=== PATIENT | female | born 1950 | race Caucasian/White ===

== ENCOUNTER 2022-11-24 09:03 | Outpatient (RCR) | payer MEDICARE, SELFPAY ==
--- NOTE | 2022-11-25 10:29 | MHC.SP.ADU ---
Referring provider: Sharon Arias Reason for Referral: Anoxic brain injury Type of Treatment: 77008 Clinical Swallowing Evaluation Date of Plan of Treatment: 11/24/22 Onset of Symptoms/Illness: 11/24/22 Date Treatment Started: 11/24/22 Medical Diagnosis: Speech changes Primary Speech Language Diagnosis: R41.841 Cognitive communication disorder Secondary Speech Language Diagnosis: History Mrs. Baker is a 72 year-old woman with concerns over her speech and cognition following complications from carotid bypass surgery in September of 2022. Past medical history includes; Abdominal bloating, Hypertension, Breast CA s/p lumpectomy (2005), Vision changes, Hyperlipedemia, CAD, DM2, Headache, Kidney stones, Sleep apnea, Afib, PCOS, Psoriasis, Sciatica. She reports slurred speech and cognitive changes following recent carotid surgery during which she reports she, three times . She notes that her Daughter reports transient right side facial droop as well as pressure to bite her lip. Social history is significant for multiple stressors at work from which she would like to retire from. Family history is significant for additional stressors which she reports are persistent, but resolving. 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 Assistive Devices in use: Comment: N/a Past Speech Language Therapy: None. Other Therapies Seen in Current Calendar Year: None Other: Swallowing History: Dysphagia Specific: Within Functional Limits Comments: Pre-eval Risk for Aspiration: Pre-evaluation Dietary Consistencies: Pre-eval Liquid Intake: Pre-eval Medication Intake: Reported Speech, Language, Cognition difficulties: Attention Memory Cognition Speaking Quality of Life: Patient Stated Goal of Speech-Language Therapy: I want to be smarter than my Grand Daughters Assessment Speech Production: Aphasic: Fluent Articulate Within Functional Limits Clinical Impression: Intact Informal Voice Assessment: Voice Loudness: Normal Voice Nasal Resonance: Normal Voice Oral Resonance: Normal Voice Phonatory-based Quality: Normal Voice Pitch: Normal Voice Other Observations: Reverse Phonation Clinical Impression: Intact Tests of Speech & Lang Adults: Clinical Impression: Did Not Test Observations: Testing not indicated. Tests of Cognition: RBANS Clinical Impression: Impaired Observations: Mrs. Baker participated in the RBANS - Update. She was engaged and motivated to complete all tasks. At times, she presented as anxious towards the task at hand which may have negatively impacted her performance. R-BANS Update I.) Immediate Memory Index: 76 Ia.) List Learning: -- Scaled Score: 5 Ib.) Story Memory: -- Scaled Score: 6 II.) Visuospatial/Constructional Index: 126 IIa.) Figure/Copy: -- Scaled Score: 14 IIb.) Line Orientation: -- Percentile Group: >75 III.) Language Index: 92 IIIa.) Picture Naming: -- Percentile Group: 26-50 IIIb.) Semantic Fluency: -- Scaled Score: 7 IV.) Attention Index: 112 Renae.) Digit Span: -- Scaled Score: 12 IVb.) Coding: -- Scaled Score: 12 V.) Delayed Memory Index: 81 Va.) List Recall: -- Percentile Group: 3-9 Vb.) List Recognition: -- Percentile Group: 17-25 Vc.) Story Recall: -- Scaled Score: 9 Vd.) Figure Recall: -- Scaled Score: 12 Total Scale Score: 95 (%ile: 37) Impressions and Recommendations Summary: Mrs. Baker reports recent history of surgical complications suggestive of diffuse anoxic brain injury. Her reported symptoms of difficulty sleeping, behavioral changes, and an overall feeling of brain fog are consistent with this etiology. She also reports a multitude of work and family related stressors that she is addressing with a psychological counselor. Standardized testing showed primary impairment in Immediate Memory (SS=76) and Delayed Memory (SS=81). These results may have been impacted by her testing anxiety, observable through secondary behaviors and her reported concern that she would be diagnosed with major neurocognitive disorder. Despite these relative areas of deficits, her overall Total Scale score (SS=95) is within functional limits as compared to her age-matched peers. These scores should be interpreted with caution however as her baseline is one of a high-achieving and high-performing individual. In lieu of previous testing records, it is possible that her reported symptoms are consistent with today's performance and that she is not performing at her previously expected level. Mrs. Baker was presented with these scores on the day of testing and agrees to trial a short course of cognitive-linguistic therapy at this clinic. Therapy will provided activities and education in cognitive stimulation techniques that she can practice at home and in the community. Prognosis for Improvement: Comment: Good Recommendation for Speech Therapy: Outpatient Speech Therapy Frequency/Duration: Date Range for Service Requested: Time to Reassess: PRN Custodial Goals: Pt will demonstrate back compensatory strategies to help them achieve success in novel, cognitively stimulating tasks. Short Term Goals: Goal # : STG1: Pt will verbalize back the 5 attention types and provide functional examples of each with >80% accuracy with fading cues. Goal Status: New Goal Goal# : STG2: Pt will complete logical deduction puzzles using trained compensatory strategies with >80% accuracy with fading cues. Goal Status: New Goal Goal # : STG3: Pt will complete weekly HEP to facilitate carryover at home and in the community with >80% accuracy independently. Goal Status: Recommended Referrals to be Discussed with Primary Care Provider: Neurology Neuropsychological Eval Pt does not endorse that she has a Neurologist on-board. Her tic-like lip biting behaviors may be an indicator of underlying hyperkinetic disorder. Full Neuropsychological Evaluation may be beneficial given concern over mild cognitive impairment. Patient Education: Completed: No Patient/Caregiver Education: Patient expressed understanding of evaluation Patient agrees with goals and treatment plan Patient requires further education on strategies Comments/Barriers to Learning: Doughnut Icer Machine Clinican/Clinical Fellow: No Supervisory Statement: N/A Speech Language Pathologist: Herminio Guillory M.A., CCC-CREDIT AND LOAN COLLECTIONS SUPERVISOR
== END 2023-11-22 13:04 | disposition home or self-care (01) ==
LOC: HO.SH 09:03
PROVIDERS: Visit Provider Internal Medicine
DX: R41.841 Cognitive communication deficit (principal)

== ENCOUNTER 2025-01-10 10:54 | Outpatient (AMB) | payer MEDICARE, SELFPAY ==
--- OUTSIDE RECORDS SUMMARY | 2025-01-06 23:59 | XMS_ITS | Continuity of Care Document ---
Author Organization [facility] Address [address] [place] [address]- Care Team Providers Care Tourist Information Assistant Name Role Phone Erich VILLAR, [facility] Primary [facility] Physician [place] [facility] [place]): [place] - 01/06/25 [facility] [address] [place], [place] [id number] Encounter Type: Triage Allergies, Adverse Reactions, Alerts Substance Criticality Severity Reaction Reaction Severity Status NIFEdipine bloating, weight gain Active gabapentin hallucination Activ e Tape surgical, paper , adhesive - severe burning of skin Active Immunizations Given and Recorded Vaccine Date Status Refusal Reason pneumococcal 20-valent conjugate vaccine 1 12/31/21 Given influenza virus vaccine, inactivated 11/28/19 Roberto rded influenza virus vaccine, inactivated 2 12/15/17 Gi norman influenza virus vaccine, inactivated 3 01/22/16 Gi norman influenza virus vaccine, inactivated 4 10/21/14 Re corded Influenza Virus Vaccine (oldterm) 01/04/19 Recorde d pneumococcal 13-valent vaccine 5 01/25/18 Given 1Result Comment: [facility] [id number] 2Result Comment: [12/15/2017] [facility]# [id number] pt. tolerated inj. without complications...[place] 3Result Comment: [01/22/2016] pt. tolerated inj. without complications...CO [facility] Comment: [01/25/2018] [facility]# [id number] pt. tolerated inj. without complications....CO Medications atorvastatin 10 mg oral tablet 1 tablet = 10 mg, By Mouth, Daily, # 30 tablet, 0 Refills, Maintenance, 12/24/24 10:58:00 AM EDT, [id number], Partial fill upon patient request if the prescription is for a schedule II opioiddrug., 155, cm, 12/24/24 10:15:00 EDT, Height, 85.5, kg, 12/05/24 14:37:00 EDT, Dry Weight Start Date: 12/24/24 Status: Ordered Medication Dispense Status: Completed Quantity: 30.0 Unit: tablet Total Allowed Fills: 1 Fills Dispensed: 0 AutoBIPAP EPAPmin 9 IPAPmax 17 PS 4 AutoBIPAP EPAPmin 9 IPAPmax 17 PS 4, See Instructions, # 1 each, Refills 0, Tot. Refills 0, Maintenance, use overnight and naps from [facility], 04/25/23 4:23:00 PM EST, Compound Start Date: 04/25/23 Status: Ordered Medication Dispense Status: Completed Quantity: 1.0 Unit: each Total Allowed Fills: 1 Fills Dispensed: 0 ciclopirox 0.77% topical cream 1 application, Topically, 2 times a day, # 90 Gm, 2 Refills, Maintenance, 12/05/24 2:54:00 PM EDT, Cream, [id number], 1 application Topically 2 times a day, 155, cm, 12/05/24 14:37:00 EDT, Height, 85.5, kg, 12/05/24 14:37:00 EDT, Dry Weight Start Date: 12/05/24 Status: Ordered Medication Dispense Status: Completed Quantity: 90.0 Unit: g Total Allowed Fills: 3 Fills Dispensed: 0 fluocinolone 0.01% topical oil 1 application, Topically, Daily, Apply a thin film onto scalp and massage thoroughly into wet or dampened hair/scalp; cover with shower cap. Leave on overnight (or for at least 4 hours)., # 118.28 mL, 5 Refills, Maintenance, 05/22/24 1:09:00 PM EDT, Oil, [id number], Partial fill upon patient request if the prescription is for a schedule II opioid drug., 1 application Topically Daily,Instr:Apply a thin film onto scalp and massage thoroughly into wet or dampened hair/scalp; cover with shower cap. Leave on overnight (or for at least 4 hours)., 155, cm, 05/22/24 12:40:00 EDT, Height, 88, kg, 05/22/24 12:32:00 EDT, Dry Weight Start Date: 05/22/24 Status: Ordered Medication Dispense Status: Completed Quantity: 118.28 Unit: mL Total Allowed Fills: 6 Fills Dispensed: 0 furosemide 20 mg oral tablet 1, tablet, By Mouth, Daily, # 90 tablet, Refills 1, Tot. Refills 1, Maintenance, 12/17/24 9:25:00 PMEDT, Route to Pharmacy Electronically, [id number], 155, cm, 12/05/24 14:37:00 EDT, Height, 85.5, kg, 12/05/24 14:37:00 EDT, Dry Weight Start Date: 12/17/24 Stop Date: 12/23/24 Status: Ordered Medication Dispense Status: Completed Quantity: 90.0 Unit: tablet Total Allowed Fills: 2 Fills Dispensed: 0 Gas-X Extra Strength 125 mg oral tablet, chewable 1 tablet = 125 mg, Chew, 4 times a day, PRN Gas, # 48 tablet, 0 Refills, Acute 08/15/26 8:56:00 AM EDT, 08/01/24 8:55:00 AM EDT, Chew Tablet, [facility]/pharmacy #[id number], Partial fill upon patient request if theprescription is for a schedule II opioid drug., 155, cm, 08/01/24 8:20:00 EDT, Height, 87, kg, 07/08/24 11:37:00 EDT, Dry Weight Start Date: 08/01/24 Stop Date: 08/15/26 Status: Ordered Medication Dispense Status: Completed Quantity: 48.0 Unit: tablet Total Allowed Fills: 1 Fills Dispensed: 0 Humalog Kwik Pen 100 units/mL subcutaneous injection See Instructions, up to max 20 units tid units Subcutaneous Injection 3 times a day before meals based on sliding scale 100-149: 4 units 150-199: 8 units 200- 249: 12 units 250-299: 16 units 300-349: 20 units Call if glucose greater than 350 rotate injection sites 15 minutes before or immediately after a meal, # 30 mL, 2 Refills, Maintenance, 12/05/24 2:54:00 PM EDT, Solution, [id number], Partial fill upon patient request if the prescription is for a schedule II opioid drug., 155, cm, 12/05/24 14:37:00 EDT, Height, 85.5, kg, 12/05/24 14:37:00 EDT, Dry Weight Start Date: 12/05/24 Status: Ordered Medication Dispense Status: Completed Quantity: 30.0 Unit: mL Total Allowed Fills: 3 Fills Dispensed: 0 hydrOXYzine hydrochloride 10 mg oral tablet See Instructions, PRN for anxiety, TAKE 1-2 TABLETS BY MOUTH IN THE EVENING WITH DINNER, # 90 tablet, 2 Refills, Maintenance, 01/29/24 11:37:00 AM EST, Tablet, [id number], Partial fill upon patient request if the prescription is for a schedule II opioid drug., 151.5, cm, 12/29/23 10:34:00 EDT, Height, 88, kg, 12/29/23 10:15:00 EDT, Dry Weight Start Date: 01/29/24 Status: Ordered Medication Dispense Status: Completed Quantity: 90.0 Unit: tablet Total Allowed Fills: 3 Fills Dispensed: 0 Lantus Solostar Pen 100 units/mL subcutaneous solution See Instructions, 70 units Subcutaneous Injection Daily with breakfast, # 60 mL, 2 Refills, Maintenance, 12/05/24 2:54:00 PM EDT, Solution, [id number], dose change, 155, cm, 12/05/24 14:37:00 EDT, Height, 85.5, kg, 12/05/24 14:37:00 EDT, Dry Weight Start Date: 12/05/24 Status: Ordered Medication Dispense Status: Completed Quantity: 60.0 Unit: mL Total Allowed Fills: 3 Fills Dispensed: 0 Metamucil Powder By Mouth, 0 Refills, Maintenance, 10/24/22 10:18:00 AM EDT, Partial fill upon patient request if theprescription is for a schedule II opioid drug. Start Date: 10/24/22 Status: Ordered Medication Dispense Status: Completed Total Allowed Fills: 1 Fills Dispensed: 0 nystatin topical [id number] u/gm powder 1 application, Topically, 2 times a day, clean and dry area, # 56.7 Gm, 0 Refills, Maintenance, 04/07/20 2:08:00 PM EST, Powder, [facility]/pharmacy #[id number], Partial fill upon patient request if the prescription is for a schedule II opioid drug., 1 application Topically 2 times a day,Instr:clean and dry area, 154.02, cm, 03/17/20 13:45:00 EST, Height Start Date: 04/07/20 Status: Ordered Medication Dispense Status: Completed Quantity: 56.7 Unit: g Total Allowed Fills: 1 Fills Dispensed: 0 ONE TOUCH ULTRA test strips ONE TOUCH ULTRA test strips, See Instructions, Refills 3, Tot. Refills 3, Maintenance, use as directed tid and prn, 09/24/09 11:16:04 AM EDT, 90 days Start Date: 09/24/09 Status: Ordered Medication Dispense Status: Completed Total Allowed Fills: 4 Fills Dispensed: 0 Pen Iola, 31 G x 8 mm BD Ultra Fine III See Instructions, # 100 each, Refills 5, Tot. Refills 5, Maintenance, dx; e11.9 use four to 5 timesper day, 02/14/24 5:02:00 PM EST, Supply, 151.5, cm, 12/29/23 11:21:00 EDT, Height, 88, kg, 12/28/2409:15:00 EDT, Dry Weight Start Date: 02/14/24 Stop Date: 08/12/24 Status: Ordered Medication Dispense Status: Completed Quantity: 100.0 Unit: each Total Allowed Fills: 6 Fills Dispensed: 0 Pen Iola, 31 G x 8 mm BD Ultra Fine III See Instructions, # 100 each, Refills 5, Tot. Refills 5, Maintenance, use as directed for Type 2 Diabetes Mellitus, 01/26/22 12:22:00 PM EST, Supply, 152.4, cm, 01/26/22 12:03:00 EST, Height, 82.4, kg, 01/20/22 7:59:00 EST, Dry Weight Start Date: 01/26/22 Stop Date: 07/25/22 Status: Ordered Medication Dispense Status: Completed Quantity: 100.0 Unit: each Total Allowed Fills: 6 Fills Dispensed: 0 Pen Iola, 32 G x 4 mm BD Ultra Fine III See instructions, # 200 each, Refills 5, Tot. Refills 5, Maintenance, dx: e11.9 use once daily withLantus, 08/26/21 9:13:00 AM EDT, Supply, 153, cm, 08/26/21 8:43:00 EDT, Height, 79.9, kg, 03/19/21 10:16:00 EST, Dry Weight Start Date: 08/26/21 Stop Date: 02/22/22 Status: Ordered Medication Dispense Status: Completed Quantity: 200.0 Unit: each Total Allowed Fills: 6 Fills Dispensed: 0 Valtrex 1 gm oral tablet See Instructions, 2 tablet By Mouth 2 times a day as needed for cold sores, # 56 tablet, 11 Refills, Maintenance, 05/22/24 1:08:00 PM EDT, Tablet, [id number], 155, cm, 05/22/24 12:40:00 EDT, Height, 88, kg, 05/22/24 12:32:00 EDT, Dry Weight Start Date: 05/22/24 Status: Ordered Medication Dispense Status: Completed Quantity: 56.0 Unit: tablet Total Allowed Fills: 12 Fills Dispensed: 0 Vitamin D3 1000 intl units oral capsule 1 capsule = 1,000 International_Units, By Mouth, Daily, 0 Refills, Maintenance, 09/12/13 3:24:52 PM EDT Start Date: 09/12/13 Status: Ordered Medication Dispense Status: Completed Total Allowed Fills: 1 Fills Dispensed: 0 Problem List Condition Confirmation Course Effective Dates Status H ealth Status Informant Abdominal bloating Confirmed Active Adjustment disorder with anxiety Confirmed Active Persistent adjustment disorder with anxiety Confirmed Active Benign hypertension Confirmed Active Carotid stenosis, bilateral Confirmed Active Cancer of breast, pT1c N0 left breast cancer, ER/[place] positive, HER-2/mirtha negative. 2005 Confirmed Active Coronary artery disease Confirmed Active Diabetes Confirmed Active Change in vision Confirmed Active Headache Confirmed Active Type 2 diabetes mellitus with hyperglycemia Confirmed Active Kidney stones Confirmed Active Combined hyperlipidemia Confirmed Active Obstructive sleep apnea Confirmed Active Right calf pain Confirmed Active Paroxysmal atrial fibrillation Confirmed Active Routine check-up Confirmed Active PCOS (polycystic ovarian syndrome) Confirmed Active Psoriasis Confirmed Active Right flank pain Confirmed Active Sciatica Confirmed Active Severe obesity (BMI 35.0-39.9) with comorbidity Confirmed Active SVT (supraventricular tachycardia) Confirmed Active Social History Social History Type Response Smoking Status Never smoker entered on: 12/11/13 Sexual Orientation Self described orien tation: ; Straight or heterosexual Sex Sex Representation Female (finding) Patient Care team information Care Team Personnel Name: Marissa Banda RN Position: [facility] RN Supv Member Role: Primary Care Nurse Name: Carmelina España RN Position: [facility] forming roll operator heavy duty Member Role: Prestressed Concrete Laborer Name: Celia Tapia RN Position: [facility] RN Member Role: Primary Care Nurse Name: Victoria Jung MD Position: [facility] Physician - Primary Care Member Role: PCP Address: [address] [place] [address] Adult [facility] Pediatric Medicine [address] Telecom: Care Team Related Persons Name: ROSA ORNELAS Name: CAL ORNELAS Insurance Providers Guarantor name: TOVA ORNELAS Health Plan Information #: 1 Payer: [employer] H[employer] Payer Identifier: NA Member Number: [id number] Group Number: [id number] Subscriber Identifier: [id number] Relationship to Subscriber: self Coverage Type: Medicare HMO Coverage Verification Date: NA Telecom: NA Address:
--- OUTSIDE RECORDS SUMMARY | 2025-01-09 11:15 | XMS_ITS | Encounter Summary ---
Author Organization [facility] Address [address] [place] [address] Care Team Providers Care Information Assurance Specialist Name Role Phone Sharon Arias MD Primary Care Provider [phone]- [phone] Reason for Referral * Consultation (Routine) - Authorized Specialty Diagnoses / Procedures Referred By Contact Referred To Contact Podiatry / Orthopaedic Surgery Diagnoses Type 2 diabetes mellitus without complications, unspecified whether prison insulin use (CMS/HCC V24, CMS/HCC V28) Violetta Martinez PA [address] [place] [address] Phone: tel: fax: Orthopedic Surgery [address] [address] Phone: tel: fax: Referral ID Status Reason Start Date Expiration Date Visits Requested Visits Authorized [id number] Authorized Specialty Services Required 01/09/2026 1 1 * Consultation (Routine) - Authorized Specialty Diagnoses / Procedures Referred By Contac t Referred To Contact Internal Medicine Diagnoses Secondary hypertension Violetta Martinez PA [address] [place] [address] Phone: tel: fax: Edda Zapata, PharmD [address] [place] [address] Phone: tel: fax: Referral ID Status Reason Start Date Expiration Date Visits Requested Visits Authorized [id number] Authorized Specialty Services Required 01/09/2026 1 1 Reason for Visit * Reason Comments Follow-up Thyroid and Diabetes Discuss Labs Encounter Details Date Type Department Care Team (Late st Contact Info) Description 01/09/2025 11:15 AM EDT Office Visit Endocrinology - [place] [address] [place] [address] Violetta Martinez PA [address] [place] [address] Type 2 diabetes mellitus without complications, unspecified whether equipment operator intermodal yard insulin use (CMS/[facility] V24, CMS/[facility] V28) (Primary Dx); Secondary hypertension Social [...] hypoglycemic episodes States she saw 2 previous foreclosure clerk but not 1 recently. She used to go to [facility] Blood sugar in the office 179 Averages [...] Noted Type 2 diabetes mellitus without complications ([facility] V24, [facility] V28) 01/09/2025 Essential hypertension 09/30/2024 Malignant neoplasm of breast ([facility] V24, [facility] V28) 09/30/2024 Obstructive sleep apnea 09/30/2024 Pure hypercholesterolemia 09/30/2024 Supraventricular tachycardia ([facility] V24) 09/30/2024 Severe obesity ([facility] [place], [facility] V28) 09/30/2024 Benign hypertension 08/01/2024 Coronary artery disease 08/01/2024 Hyperglycemia 08/01/2024 Paroxysmal atrial fibrillation ([facility], [facility] V28) 08/01/2024 Other specified diabetes mellitus with other specified complication ([facility], [facility] V28) 04/10/2023 SOCIAL HISTORY: Social History Tobacco [...] the morning. ALLERGIES: Adhesive, Gabapentin, Nifedipine, and Odxkwrb-zms-oqv reductase inhibitors PHYSICAL EXAM: Blood pressure (!) [...] 2 diabetes mellitus without complications, unspecified whether prison insulin use ([facility] V24, [facility] V28) 2. Secondary hypertension PLAN: Patient [...] 2 diabetes mellitus without complications, unspecified whether equipment operator intermodal yard insulin use ([facility] V24, [facility] V28) (Primary) - Hemoglobin A1c; Future [...] 10:00 AM EST Appointment Radiology Department - [address] [phone] 04/11/2025 11:00 AM EST Office Visit Endocrinology - [address] [phone] Michelle Matthews MD [address] [place] [address] Scheduled Orders Name Type Priority Associated Diagnoses Orde r Schedule Hemoglobin A1c Lab Routine Type 2 diabetes mellitus without complications, unspecified whether prison insulin use ([facility], [facility] V28) 1 Occurrences starting 01/09/2025 until 01/09/2026 Scheduled Referrals Name Type Priority Associated Diagnoses Orde r Schedule Ambulatory referral to Internal Medicine Outpatient Referral Routine Secondary hypertension 1 Occurrences starting 01/09/2025 until 01/09/2026 Ambulatory referral to Podiatry Outpatient Referral Routine Type 2 diabetes mellitus without complications, unspecified whether equipment operator intermodal yard insulin use ([facility] V24, [facility] V28) 1 Occurrences starting 01/09/2025 until 01/09/2026 documented as of this encounter Visit Diagnoses Diagnosis Type 2 diabetes mellitus without complications, unspecified whether equipment operator intermodal yard insulin use ([facility] V24, [facility] V28)- Primary Secondary hypertension Other secondary [...] documented as of this encounter Care Teams Information Assurance Specialist Relationship Specialty Start Date End Date Sharon Arias MD [facility] [place] [address] PCP - General Internal Medicine 09/30/24 documented as of this encounter
--- NOTE | 2025-01-10 10:11 | A.OFFPC_ITS ---
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 Required: No Allergies adhesive tape Allergy (Intermediate, Verified 01/10/25 11:03) removes skin [id number] Reductase Inhibitor Allergy (Intermediate, Verified 01/10/25 11:03) Unknown metformin Adverse Reaction (Verified 01/10/25 11:34) bloating Medication List - Last Reconciled 01/10/25 by Sharon Arias MD cholecalciferol (vitamin D3) 50 mcg PO DAILY ciclopirox 0.77% appl topical BID PRN furosemide 20 mg PO DAILY insulin glargine (Lantus Solostar U-100 Insulin) 70 units subcut QAM insulin lispro (Humalog KwikPen (U-100) Insulin) 0.5 - 20 units subcut TID PRN pen needle, diabetic (Ultra-Fine Pen Needle) As directed valacyclovir 2,000 mg PO BID PRN Tobacco use date assessed: 01/10/25 Fall risk assessment: 2 + Falls in past year Last assessed Fall Risk: 01/10/25 Dental Screening Dental Screen Date: 01/10/25 Did you have a dental visit in the last 12 months?: No Did you have a dental problem in the last 6 months where you did not have access to dental care?: No HPI HPI Comments History of Present Illness Details The patient is a 74 year old female presenting with re-establishment of care, management of type 2 diabetes mellitus, essential hypertension, cognitive changes, and associated stress/anxiety. Type 2 Diabetes Mellitus: Persistent hyperglycemia >300 mg/dL. Recent insulin access issues led to periods of no insulin. Metformin discontinued due to GI distress. Stress worsens glucose control. Established with endocrinology. Essential Hypertension: Previously uncontrolled. Recently stabilized around 130 mmHg. Has been using a beet supplement. Notes multiple intolerances of numerous agents. Cognitive Changes: Memory concerns and balance issues, exacerbated by stress and uncontrolled diabetes. Two recent falls, associated with visual disturbance. Daughter is concerned about aggressive behavior sometimes. Right Thumb Tendinitis: Unexplained soreness and inflammation. No trauma recollection. Extension pain to shoulder. Thyroid Nodules: Existing nodules; inconclusive biopsy. Familial thyroid cancer concerns. Done at [facility]. Anemia- due for repeat cbc Visual Changes: Significant difficulties, requiring adjustment/removal of glasses for clarity. Suspected prescription issues. Stress and Anxiety: High stress from familial and professional situations. Correlates stress with poor diabetes management. rmin, discontinued due to side effects CAD s/p CABG- established with [facility] cardiology Social History: - Experienced high stress levels due to familial dynamics - Reports significant caregiver responsi bilities and familial tension Diagnostic Results: - Labs: Consistent blood glucose reading s >300 mg/dL, self-reported via glucose monitoring - Diagnostics: Thyroid ultrasound reveal ing multiple nodules; inconclusive biopsy attempt Review of Systems - Neurological: Reports memory impairmen t, recent falls. - Musculoskeletal: Reports right thumb s oreness and inflammation. Also notes ongoing cystic lesion- left thumb - Endocrine: Reports difficulty with blo od sugar management. - Visual: Reports significant changes in vision clarity. - Psychological: Reports high stress and anxiety levels. Physical Exam Gen: NAD HEENT: EOMI Chest: CTABL Card: normal s1, s2, soft murmur across precordium Abd: SNTND, +BS Musculoskeletal- Inflammation noted in the right thumb. Pain with flexion and extension Assessment and Plan 1. Type 2 Diabetes Mellitus - Insulin therapy continuation. Monitor glucose. Check A1c. Endo referral after, consider jardiance addition since pt has CAD. 2. Essential Hypertension . Monitor BP. Assess stress impact. 3. Cognitive Changes - Detailed neuropsych evaluation planned . - Check b12, folic acid, tsh - Obtain CT head 4. Right Thumb Tendonitis - Use brace, topical cream. Consider sharifa ging. 5. Thyroid Nodules - Obtain prior records. Endocrinology re ferral. 6. Stress and Anxiety - Therapy referral. Consider family ther apy. 7. Dermatology referral for skin eval Follow up in 3 months Discussion Notes Today?s visit included a detailed discussion regarding the patient?s management of type 2 diabetes mellitus, essential hypertension, cognitive changes, tendonitis, thyroid nodules, and stress-related health issues. I emphasized the importance of consistent medication adherence, particularly with insulin. We discussed neuropsychological evaluation to explore cognitive concerns. For the thumb tendonitis, I recommended non-invasive treatments like a brace and topical creams, unless further intervention is needed based on symptom progression. Observations related to thyroid nodules necessitate further endocrinological evaluation, given the family history of thyroid cancer. I also discussed strategies for stress management, including the possibility of individual and family therapy. We talked about the potential influence of stress on her current health conditions, including potential impacts on blood sugar control. Patient Instructions - Continue taking all prescribed medicat ions as directed. - Check blood sugar levels regularly and log them. - Use a brace for your thumb as needed a nd apply topical cream. - Attend therapy sessions for stress man agement. - Do your blood work as scheduled. - Return for your follow-up appointment in three months or sooner if advised. - Call if you have any new or worsening symptoms. [facility] Medical History (Updated 01/10/25 @ 16:43 by Sharon Arias MD) Vitamin D deficiency Mental status alteration Anemia Depression Anxiety Diabetes mellitus type 2 in obese Coronary artery disease Hyperlipidemia, unspecified Primary hypertension Surgical History (Updated 01/10/25 @ 11:26 by Sharon Arias MD) Hx of CABG History of colonoscopy (~01/02/20) Family History (Updated 01/10/25 @ 11:29 by Sharon Arias MD) Mother Dementia Social History Housing: House Patient Tobacco Use Status: Never used Tobacco e-Cigarette/Vaping Use: Never Used service: No Current occupational status: employed 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 1. Little interest or pleasure in doing things: several days 2. Feeling down, depressed, or hopeless: several days 3. Trouble falling or staying asleep, or sleeping too much: several days 4. Feeling tired or having little energy: several days 5. Poor appetite or overeating: not at all 6. Feeling bad about yourself - or that you are a failure or have let yourself or your family down: several days 7. Trouble concentrating on things, such as reading the newspaper or watching television: not at all 8. Moving or speaking so slowly that other people could have noticed. Or the opposite - being so fidgety or restless that you have been moving around a lot more than usual: not at all 9. Thoughts that you would be better off or of hurting yourself in some way: not at all Total score: 5 Source: Developed by Drs. Robby Larsen, Mirian Loomis, Eduardo Siddiqi and colleagues, with an educational bonnie from [employer]. AUDIT C Alcohol Use Questionnaire (AUDIT-C) 1. How often do you have a drink containing alcohol?: Never 3. How often do you have six or more drinks on one occasion?: Never Total Score: 0 ALECIA-7 AMB Questionnaire ALECIA-7 Date ALECIA - 7 assessed: 01/10/25 Feeling nervous, anxious, or on edge: 3 = Nearly every day Not being able to stop or control worryin = More than half the days Worrying too much about different things: 2 = More than half the days Trouble relaxin = Several days Being so restless that it is hard to sit still: 0 = Not at all Becoming easily annoyed or irritable: 1 = Several days Feeling afraid as if something awful might happen: 1 = Several days Total ALECIA-7 score (0-4 normal; 5-9 mild; 10-14 moderate; 15-21 severe): 10 Source: Developed by Drs. Robby Larsen, Mirian Loomis, Eduardo Siddiqi and colleagues, with an educational bonnie from [employer]. Physical exam (Primary Care) Vital Signs: Last Vital Signs Temp 97.3 F 01/10/25 11:01 Pulse 86 01/10/25 11:01 Resp 16 01/10/25 11:01 BP 120/68 01/10/25 11:01 Pulse Ox 96 01/10/25 11:01 BMI result Body Mass Index 37.5 Tobacco/Smoking Status: Tobacco use Status Tobacco use date assessed 01/10/25 01/10/25 10:59 Patient Tobacco Use Status Never used Tobacco 01/10/25 11:13 e-Cigarette/Vaping Use Never Used 01/10/25 11:13 PHQ-9: PHQ-9 Score PHQ-9: Total score 5 01/10/25 16:15 Coding Level of Care Code Est Pt Level 4 (43425) Complex EM visit Add On G2211 Diagnoses Primary hypertension I10 Hyperlipidemia, unspecified hyperlipidemia type E78.5 Hyperlipidemia type: unspecified Coronary artery disease involving [place] heart, unspecified vessel or lesion type, unspecified whether angina present I25.10 Associated angina: unspecified whether angina present Coronary Disease-Associated Artery/Lesion type: unspecified vessel or lesion type [place] vs. transplanted heart: [place] heart Diabetes mellitus type 2 in obese E11.69; E66.9 Anemia, unspecified type D64.9 Anemia type: unspecified type Altered mental status, unspecified altered mental status type R41.82 Altered mental status type: unspecified Vitamin D deficiency E55.9 Assessment & Plan Assessment & Plan (1) Primary hypertension: Code(s): I10 - Essential (primary) hypertension Category: Medical (2) Hyperlipidemia, unspecified: Code(s): E78.5 - Hyperlipidemia, unspecified Category: Medical Qualifiers: Hyperlipidemia type: unspecified Qualified Code(s): E78.5 - Hyperlipidemia, unspecified (3) Coronary artery disease: Code(s): I25.10 - Atherosclerotic heart disease of [place] coronary artery without angina pectoris Category: Medical Qualifiers: Associated angina: unspecified whether angina present Coronary Disease- Associated Artery/Lesion type: unspecified vessel or lesion type [place] vs. transplanted heart: [place] heart Qualified Code(s): I25.10 - Atherosclerotic heart disease of [place] coronary artery without angina pectoris (4) Diabetes mellitus type 2 in obese: Code(s): E11.69 - Type 2 diabetes mellitus with other specified complication; E66.9 - Obesity, unspecified Category: Medical (5) Anemia: Code(s): D64.9 - Anemia, unspecified Category: Medical Qualifiers: Anemia type: unspecified type Qualified Code(s): D64.9 - Anemia, unspecified (6) Mental status alteration: Code(s): R41.82 - Altered mental status, unspecified Category: Medical Qualifiers: Altered mental status type: unspecified Qualified Code(s): R41.82 - Altered mental status, unspecified (7) Vitamin D deficiency: Code(s): E55.9 - Vitamin D deficiency, unspecified Category: Medical Plan - Continue insulin - Monitor blood sugar and blood pressure. - A1c evaluation. - Neuropsych evaluation planned. - Use brace and topical treatment for thumb. - Endocrinology referral for thyroid management. - Stress management through therapy. Orders: Orders Microalbumin, Random (w Creat) Today D64.9 - Anemia, unspecified, E11.69 - Type 2 diabetes mellitus with other specified complication, E66.9 - Obesity, unspecified, E78.5 - Hyperlipidemia, unspecified, I10 - Essential (primary) hypertension, I25.10 - Atherosclerotic heart disease of [place] coronary artery without angina pectoris Complete Blood Count Auto Diff Today D64.9 - Anemia, unspecified, E11.69 - Type 2 diabetes mellitus with other specified complication, E66.9 - Obesity, unspecified, E78.5 - Hyperlipidemia, unspecified, I10 - Essential (primary) hypertension, I25.10 - Atherosclerotic heart disease of [place] coronary artery without angina pectoris Comprehensive Met. Panel Today D64.9 - Anemia, unspecified, E11.69 - Type 2 d iabetes mellitus with other specified complication, E66.9 - Obesity, unspecified, E78.5 - Hyperlipidemia, unspecified, I10 - Essential (primary) hypertension, I25.10 - Atherosclerotic heart disease of [place] coronary artery without angina pectoris IRON PROFILE Today D64.9 - Anemia, unspecified, E11.69 - Type 2 diabetes mellitus with other specified complication, E66.9 - Obesity, unspecified, E78.5 - Hyperlipidemia, unspecified, I10 - Essential (primary) hypertension, I25.10 - Atherosclerotic heart disease of [place] coronary artery without angina pectoris Ferritin Today D64.9 - Anemia, unspecified, E11.69 - Type 2 diabetes mellitus with other specified complication, E66.9 - Obesity, unspecified, E78.5 - Hyperlipidemia, unspecified, I10 - Essential (primary) hypertension, I25.10 - Atherosclerotic heart disease of [place] coronary artery without angina pectoris Lipid Panel Today E78.5 - Hyperlipidemia, unspecified, I10 - Essential (primary) hypertension, I25.10 - Atherosclerotic heart disease of [place] coronary artery without angina pectoris Vitamin D 25-OH Total Today D64.9 - Anemia, unspecified, E55.9 - Vitamin D deficiency, unspecified, R41.82 - Altered mental status, unspecified Hemoglobin A1c Today D64.9 - Anemia, unspecified, E11.69 - Type 2 diabetes mellitus with other specified complication, E66.9 - Obesity, unspecified, E78.5 - Hyperlipidemia, unspecified, I10 - Essential (primary) hypertension, I25.10 - Atherosclerotic heart disease of [place] coronary artery without angina pectoris CT head/brain wo IV con Today R41.82 - Altered mental status, unspecified Vitamin B12 Today D64.9 - Anemia, unspecified, E55.9 - Vitamin D deficiency, unspecified, R41.82 - Altered mental status, unspecified TSH reflex Free T4 Today D64.9 - Anemia, unspecified, E55.9 - Vitamin D deficiency, unspecified, R41.82 - Altered mental status, unspecified Folate Today D64.9 - Anemia, unspecified, E55.9 - Vitamin D deficiency, unspecified, R41.82 - Altered mental status, unspecified Referrals Dermatology Referral L98.9 - Disorder of the skin and subcutaneous tissue, unspecified Patient Instructions: GET FASTING LABS AT [facility] WE WILL SCHEDULE CT SCAN OF HEAD WE WILL ALSO DO REFERRAL FOR THERAPIST AND NEUROPSYCHOLOGY EVALUATION WILL REFER TO ENDOCRINOLOGY AFTER LABS ARE BACK
[2025-01-10 11:01] VITALS: BP 120/68; PULSE 86; RESP 16; TEMP 36.3; O2SAT 96; BMI 37.5
--- OUTSIDE RECORDS SUMMARY | 2025-01-10 12:24 | XMS_ITS | Patient Health Record ---
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 Name Role Phone MARIO MOREIRA Primary Care Provider Sho Bergman Unavailable [phone] Allergies Allergen (clinical drug ingredient) Drug/Non Drug Allergy documented on EMR Reaction Allergy Type Onset Date Status tape (uncoded) Unknown Allergy Activ e Reason For Referral No Information Medications Medication SIG (Take, Route, Fr equency, Duration) Notes Start Date End Date Status Gemfibrozil 600MG 1 ORAL twice daily; Duration: -3 [facility] 11/21/2011 Active valACYclovir HCl 1 GM 2 tablets Orally t wice a day for one day at earliest sign of cold sore; Duration: 1 days 04/27/2016 Active Mupirocin 2 % 1 application to aff ected area Externally Three times a day; Duration: 7 days 04/22/2015 Active Vitamin D3 1000 IU ORAL daily; Duration: -3 [facility] 2011 Active Glimepiride 1 MG Orally Act lillie Lisinopril 2.5MG 1 ORAL daily; Duration: -3 [facility] 2011 Active metFORMIN HCl 500MG 1 ORAL Twice a day [facility] 11/21/2011 Active Problems Problem Type SNOMED Code ICD Code Onset Dates Problem Status W/U Status Risk Notes Problem Type II diabetes mellitus without complication (704400864) Diabetes mellitus without mention of complication, type II or unspecified type, not stated as uncontrolled (250.00) Active confirmed Problem Obesity (333145044) Obesity, uns pecified (278.00) Active confirmed Problem Breast cancer (426656155) BREAST CANCER (174.8) Active confirmed Problem Essential hypertension (85591992) Essential (primary) hypertension (I10) Active confirmed Problem Pure hypercholesterolemia (172072332) Pure hypercholesterolemia (E78.0) Active confirmed Plan Of Treatment Pending Test Test Name Order Date PAP SMEAR 04/24/2014 MAMMOGRAM, SCREENING 04/24/2014 Bone Density 04/24/2014 THIN PREP,HPV,STEVE IF HPV+ (>29YR)(SCRN) 04/28/2017 MM Digital Mammo Screening 04/22/2015 Insurance Providers Payer Name Payer Address Payer Phone Subscriber Number Group Number Insured Name Patient Relationship to Insured Coverage Start Date Coverage End Date [employer]AGE [address] [place] [address] [id number] TOVA NOEL Self - patient is the insured Medical (General) History Medical History History ICD Code Diabetes mellitus without me ntion of complication, type II or unspecified type, not stated as uncontrolled BREAST CANCER Obesity, unspecified Surgical History Surgery Date(Month/Year) left Breast lumpectomy, s/p RT and femar a x 2y 2005
--- OUTSIDE RECORDS SUMMARY | 2025-01-10 12:24 | XMS_ITS | Clinical Summary ---
Author Organization [facility] [address] [place] [address] Address [address] [facility] [place] [address] Phone Care Team Providers Care Plate Shop Helper Name Role Phone Sharon Arias MD Primary Care Provider [phone] Allergies Active Allergy Reactions Criticality Noted Date Comments Adhesive Other 09/30/2024 Skin irritation/ burning Gabapentin Hallucinations 04/10/2023 Nifedipine Weight Gain 09/30/2024 Ludaqxs-Fal-Zhu Reductase Inhibitors Unknown 09/30/2024 PT doesn't recall Medications furosemide (LASIX) 20 mg tablet Take 1 tablet (20 mg total) by mouth if needed. Swelling Active simethicone (Gas-X Extra Strength) 125 mg chewable tablet Chew 1 tablet (125 mg total) every 6 (six) hours if needed. 5 08/16/19 27 Active Valtrex 1 gram tablet Take 1 tablet (1,000 mg total) by mouth 1 (one) time each day. PRN 7 Active cholecalcifero l (VITAMIN D-3) 50 mcg (2,000 unit) tablet Take 1 tablet (2,000 Units total) by mouth 1 (one) time each day. Active ciclopirox (LOPROX) 0.77 % cream Apply 1 Application topically 2 (two) times a day. APPLY TO AFFECTED AREA 4 Active RED BEET ORAL Take 1 each by mouth 1 (one) time each day. Blood pressure Active UNABLE TO FIND Take 1 capsule by mouth 1 (one) time each day. Green bledsoe coffee extract Active pen needle, diabetic (BD Ultra-Fine Short Pen Needle) 31 gauge x 5/16 needle Use to inject 1-4 times daily as directed 100 each 11 5 Active Lantus Solostar U-100 Insulin 100 unit/mL (3 mL) injection pen Inject 70 Units under the skin 1 (one) time each day in the morning. 15 mL 11 5 Active insulin lispro (HumaLOG KwikPen) 100 unit/mL injection pen Inject 3 times a day with meals per sliding scale: 100-150: 10 units; 151-200: 11 units; 201-250: 12 units; 251-300: 13 units; 301-350: 14 units; 351-400: 15 units; call office if BS 400 15 mL 11 5 Active Lantus Solostar U-100 Insulin 100 unit/mL (3 mL) injection pen Inject 70 Units under the skin 1 (one) time each day in the morning. 3 01/10/20 25 Discontin ued(Reord er) HumaLOG KwikPen Insulin 100 unit/mL injection pen Inject under the skin 3 (three) times a day before meals. 5 01/10/20 25 Discontin ued(Formu earl change) metFORMIN XR (GLUCOPHAGE-XR ) 500 mg 24 hr tablet Take 2 tabs twice a day with meals 120 each 5 5 01/10/20 25 Discontin ued(Formu earl change) insulin lispro (HumaLOG KwikPen) 100 unit/mL injection pen Inject 3 times a day with meals per sliding scale: 100-150: 8 units; 151-200: 9 units; 201-250: 10 units; 251-300: 11 units; 301-350: 12 units; 351-400: 13 units; call office if BS 400 15 mL 11 5 01/10/20 25 Discontin ued(Reord er) Active Problems Problem Noted Date Diagnosed Date Type 2 diabetes mellitus wit hout complications ([facility] V24, [facility] V28) 01/09/2025 Essential hypertension 09/30/2024 Malignant neoplasm of breast ([facility] V24, [facility] V28) 09/30/2024 Obstructive sleep apnea 09/30/2024 Pure hypercholesterolemia 09/30/2024 Supraventricular tachycardia ([facility] V24) 09/30 Severe obesity ([facility] V24, [facility] V28) 2024 Benign hypertension 08/01/2024 Coronary artery disease 08/01/2024 Hyperglycemia 08/01/2024 Paroxysmal atrial fibrillation ([facility] V24, [facility] V28) 08/01/2024 Other specified diabetes adali litus with other specified complication ([facility] V24, [facility] V28) 04/10/2023 Encounters Date Type Department Care Team Description 01/09/2025 11:15 AM EDT Office Visit Endocrinology - [address] [phone] Violetta Martinez PA Type 2 diabetes mellitus without complications, unspecified whether alf insulin use ([facility] V24, [facility] V28) (Primary Dx); Secondary hypertension 10/23/2024 8:36 AM EDT - 10/23/2024 11:59 PM EDT Hospital Encounter Radiology Department - [address] [phone] Thyroid nodule Discharge Disposition: Home or Self Care from Last 3 Months Social History Tobacco Use Types Packs/Day Years Used Date Smoking Tobacco: Never Smokeless Tobacco: Never Tobacco Cessation:Counseling Given: Not Answered Comments No Sex and Gender Information Value Date Recorded Sex Assigned at Not on file Legal Sex Female 5:30 AM EST Gender Identity Not on file Sexual Orientation Not on file Obstetrics History Last Filed Vital Signs Vital Sign Reading [...] Mass Index 37.69 01/09/2025 10:57 AM EDT Plan of Treatment Upcoming Encounters Date Type Department Care Team (Late st Contact Info) Description 01/28/2025 10:00 AM EST Appointment Radiology Department - [address] [phone] 04/11/2025 11:00 AM EST Office Visit Endocrinology - [address] [phone] Michelle Matthews MD [address] [place], [place] Health Maintenance Due Date Last Done Comments Breast Cancer Screening 1950 Colorectal Cancer Screening: Colonoscopy 1950 COVID-19 Vaccine (#1) 1955 Diabetes: Annual Foot Exam 02/06/1960 DTaP,Tdap,and Td Vaccines (1 - Tdap) 1969 Zoster Vaccines (1 of 2) 1969 RSV Immunization Adult Patients (1 - Risk 50-74 years 1-dose series) 02/06/2000 Depression Screening 03/13/2024 Falls Risk Assessment 08/28/2024 Hepatitis C Screening 08/28/2024 Social Influencers of Health Screening 08/28/2024 Influenza Vaccine (#1) 2024 , 01/04/2019, 12/15/2017, Additional history exists Diabetes: Annual Retina Eye Exam 04/09/2025 04/09/2024 Diabetes: Blood Sugar Control Test (HGBA1C) 04/09/2025 10/07/2024 Diabetes: Annual Urine Albumin-Creatinine Ratio (uACR) 10/07/2025 10/07/2024, 04/14/2023, 04/14/2023 Diabetes: Annual GFR (Glomerular Filtration Rate) 10/07/2025 10/07/2024, 04/14/2023 Hypertension/CHF/CAD Annual BMP Blood Test 10/07/2025 10/07/2024, 04/14/2023 Cholesterol Screening (Lipid Panel) 10/07/2029 10/07/2024 Osteoporosis Screening (Bone Density Screening) 05/10/2034 05/10/2024 Pneumococcal Vaccine: 50+ Years Completed 12/31/2021, 01/25/2018 HIB Vaccines Aged Out No longer eligi ble based on patient's age to complete this topic HPV Vaccines Aged Out No longer eligi ble based on patient's age to complete this topic Hepatitis A Vaccines Aged Out No long er eligible based on patient's age to complete this topic Hepatitis B Vaccines Aged Out No long er eligible based on patient's age to complete this topic IPV Vaccines Aged Out No longer eligi ble based on patient's age to complete this topic MMR Vaccines Aged Out No longer eligi ble based on patient's age to complete this topic Meningococcal ACWY Vaccine Aged Out N o longer eligible based on patient's age to complete this topic Meningococcal B Vaccine Aged Out No l onger eligible based on patient's age to complete this topic RSV Immunization Patients Under 20 months Aged Out No longer eligible based on patient's age to complete this topic Varicella Vaccines Aged Out No longer eligible based on patient's age to complete this topic Procedures Procedure Name Priority Date/Time Associated Diagnosis Comments US GUIDED FINE NDL ASP 1ST LESION Routine 10/23/2024 9:27 AM EDT Thyroid nodule MICROALBUMIN CREATININE URINE RATIO Routine 10/07/2024 9:14 AM EDT Uncontrolled type 2 diabetes mellitus with hyperglycemia (CMS/HCC V24, CMS/HCC V28) BASIC METABOLIC PANEL Routine 10/07/2024 9:14 AM EDT Uncontrolled type 2 diabetes mellitus with hyperglycemia (CMS/HCC V24, CMS/HCC V28) HEMOGLOBIN A1C Routine 10/07/2024 9:14 AM EDT Uncontrolled type 2 diabetes mellitus with hyperglycemia (CMS/HCC V24, CMS/HCC V28) LIPID PANEL WITH REFLEX TO DIRECT LDL Routine 10/07/2024 9:14 AM EDT Uncontrolled type 2 diabetes mellitus with hyperglycemia (CMS/HCC V24, CMS/HCC V28) from Last 3 Months or Most Recently Relevant to Health Maintenance Results * US Guided Fine Ndl Asp 1st Lesion (10/23/2024 9:27 AM EDT) Anatomical Region Laterality Modality Ultrasound 10/23/2024 10:2 1 AM EDT Impressions 10/23/2024 10:23 AM EDT 1. Nodule appeared more well-defined when compared to prior examination and the nodule was not accessible due to inferior location of the nodule and adjacent jugular vein. Ultrasound thyroid in 3 months to assess for stability of the nodule Findings discussed with patient. -------- FINAL REPORT -------- Dictated By: Simran Foley Dictated Date: 10/23/2024 10:21 ET Assigned Physician: Simran Foley Reviewed and Electronically Signed By: Simran Foley Signed Date: 10/23/2024 10:23 ET Workstation ID: [id number] Transcribed By: Self Edit Transcribed Date: 10/23/2024 10:21 ET Narrative 10/23/2024 10:23 AM EDT THYROID FNA CLINICAL HISTORY: Patient presents for ultrasound-guided fine-needle aspiration of left lower pole thyroid nodule. FINDINGS: During real-time sonographic scanning, the left lower pole nodule is more well-defined, isoechoic and heterogeneous. Due to positioning of the clavicle, extreme inferior location of the nodule and adjacent jugular vein, the nodule was not sampled. Short-term follow-up can be performed on the nodule. Procedure Note Simran Foley MD - 10/23/2024 THYROID FNA CLINICAL HISTORY: Patient presents for ultrasound-guided fine-needleaspiration of left lower pole thyroid nodule. FINDINGS: During real-time sonographic scanning, the left lower pole nodule is morewell-defined, isoechoic and heterogeneous. Due to positioning of theclavicle, extreme inferior location of the nodule and adjacent jugularvein, the nodule was not sampled. Short-term follow-up can be performed on the nodule. IMPRESSION: 1. Nodule appeared more well-defined when compared to prior examinationand the nodule was not accessible due to inferior location of the noduleand adjacent jugular vein. Ultrasound thyroid in 3 months to assess forstability of the nodule Findings discussed with patient. -------- FINAL REPORT -------- Dictated By: Simran Foley Dictated Date: 10/23/2024 10:21 ET Assigned Physician: Simran Foley Reviewed and Electronically Signed By: Simran Foley Signed Date: 10/23/2024 10:23 ET Workstation ID: [id number] Transcribed By: Self Edit Transcribed Date: 10/23/2024 10:21 ET us Violetta RODRÍGUEZ IMG US PROCEDURES Final Res ult * (ABNORMAL) Lipid panel with reflex to direct LDL (10/07/2024 9:14 AM EDT) Cholesterol 240(H) 0 - 200 mg/dL LAB CHEMISTRY METHOD 10/07/2024 1:42 PM EDT [facility] Triglycerides 288(H) 0 - 150 mg/dL LAB CHEMISTRY METHOD 10/07/2024 1:42 PM EDT [facility] HDL 35(L) >=40 mg/dL LAB CHEMISTRY METHOD 10/07/2024 1:42 PM EDT [facility] LDL Calculated 147(H) 0 - 100 mg/dL LAB CHEMISTRY METHOD 10/07/2024 1:42 PM EDT [facility] VLDL Cholesterol David 57.6 mg/dL LAB CHEMISTRY METHOD 10/07/2024 1:42 PM EDT [facility] Non HDL Chol. (LDL+VLDL) 205(H) <145 mg/dL LAB CHEMISTRY METHOD 10/07/2024 1:42 PM EDT [facility] Chol/HDL Ratio 6.9(H) 0.0 - 4.4 LAB CHEMISTRY METHOD 10/07/2024 1:42 PM EDT [facility] Blood Venous blood specimen / Unknown Venipuncture / Unknown 10/07/2024 9:14 AM EDT 10/07/2024 9:14 AM EDT us Violetta RODRÍGUEZ LAB BLOOD ORDERABLES Final Result [facility] [address] [place] [address], [place] [phone] * (ABNORMAL) Microalbumin creatinine urine ratio (10/07/2024 9:14 AM EDT) Creatinine, Urine 324.0 mg/dL LAB CHEMISTRY METHOD 10/07/2024 11:57 AM EDT [facility] Microalb, Ur 197.0(H) 0.0 - 29.0 mg/L LAB CHEMISTRY METHOD 10/07/2024 11:57 AM EDT [facility] Microalb/Crea t Ratio 61(H) <30 mg/g creat LAB CHEMISTRY METHOD 10/07/2024 11:57 AM EDT [facility] Urine Urine specimen from urethra / Unknown Non-blood Collection / Unknown 10/07/2024 9:14 AM EDT 10/07/2024 9:14 AM EDT Violetta RODRÍGUEZ LAB URINE ORDERABLES Final Result Performing Organization Address City/[facility]/ZIP Co de Phone Number [facility] [address] [place] [address], [place] [phone] * (ABNORMAL) Hemoglobin A1c (10/07/2024 9:14 AM EDT) Pathologist [facility] Hemoglobin A1C 9.0(H) <6.5 % LAB CHEMISTRY METHOD 10/07/2024 1:08 PM EDT [facility] Mean Bld Glu Estim. 212 mg/dL LAB CHEMISTRY METHOD 10/07/2024 1:08 PM EDT [facility] Blood Venous blood specimen / Unknown Venipuncture / Unknown 10/07/2024 9:14 AM EDT 10/07/2024 9:14 AM EDT us iVoletta RODRÍGUEZ LAB BLOOD ORDERABLES Final Result [facility] [address] [place] [address], [place] [phone] * (ABNORMAL) Basic metabolic panel (10/07/2024 9:14 AM EDT) Sodium 140 133 - 145 mmol/L LAB CHEMISTRY METHOD 10/07/2024 1:42 PM [facility] Potassium 4.0 3.5 - 5.5 mmol/L LAB CHEMISTRY METHOD 10/07/2024 1:42 PM [facility] Chloride 107 96 - 110 mmol/L LAB CHEMISTRY METHOD 10/07/2024 1:42 PM [facility] CO2 26 21 - 32 mmol/L LAB CHEMISTRY METHOD 10/07/2024 1:42 PM [facility] Anion Gap 7 3 - 11 LAB CHEMISTRY METHOD 10/07/2024 1:42 PM [facility] Glucose 269(H) 70 - 100 mg/dL LAB CHEMISTRY METHOD 10/07/2024 1:42 PM [facility] BUN 15 5 - 25 mg/dL LAB CHEMISTRY METHOD 10/07/2024 1:42 PM [facility] Creatinine 0.92 0.50 - 1.10 mg/dL LAB CHEMISTRY METHOD 10/07/2024 1:42 PM [facility] eGFR 65 >=60 mL/min/1. 73m2 LAB CHEMISTRY METHOD 10/07/2024 1:42 PM [facility] Comment:Calculation based on the Chronic Kidney Disease Epidemiology Collaboration (CKD-EPI) equation refit without adjustment for race. BUN/Creatinine Ratio 16.3 LAB CHEMISTRY METHOD 10/07/2024 1:42 PM [facility] Calcium 9.1 8.5 - 10.5 mg/dL LAB CHEMISTRY METHOD 10/07/2024 1:42 PM [facility] Blood Venous blood specimen / Unknown Venipuncture / Unknown 10/07/2024 9:14 AM EDT 10/07/2024 9:14 AM EDT us Violetta RODRÍGUEZ LAB BLOOD ORDERABLES Final Result [facility] [place] [facility] [address] [place] [address], from Last 3 Months or Most Recently Relevant to Health Maintenance Insurance [facility] Care Teams Plate Shop Helper Relationship Specialty Start Date End Date Sharon Arias MD [facility] [address] PCP - General Internal Medicine 09/30/24
--- OUTSIDE RECORDS SUMMARY | 2025-01-10 12:25 | XMS_ITS | Patient Health Record ---
Author Organization [facility] Address [address] [place] [address] Care Team Providers Care Frame Polisher Name Role Phone Valencia Ariasberly Primary Care Provider UnavailFreddie Dunham Unavailable [phone] Allergies Allergen (clinical drug ingredient) Drug/Non Drug Allergy documented on EMR Reaction Allergy Type Onset Date Status Adhesive Bandages irritability Drug Allergy Active Adhesive Tape 1 x5yd irritability Drug Allergy Active Reason For Referral No Information Medications Medication SIG (Take, Route, Frequency, Duration) Notes Start Date End Date Status Gemfibrozil 600 mg A ctive Ciclopirox Olamine 0.77% external Apply to effected areas twice a day; Duration: 30 days 07/05/2016 Active Glimepiride Not-Taki ng Januvia Not-Taking Glucophage 1000 mg N ot-Taking Extra Depth Orthopedic Shoes (1 Pair) with Customized Heat Molded Multidensity Innersoles (3 Pair) as directed Dx: NIDDM/Polyneuropathy (E11.42), Hammertoe Foot Deformity (M20.41,M20.42), Preulcerative Skin Lesion(s) (L85.1 01/21/2020 Active vitamin D as directed Active metFORMIN HCl Active Lisinopril Act lillie Lantus for OptiClik Active Immunizations Vaccine Route Administration Date Status Comme nts Influenza Unknown 10/29/2014 Administered Influenza Unknown 11/20/2017 Administered Influenza Unknown 12/25/2018 Administered Influenza Unknown 12/02/2019 Administered COVID-19 Edgar & Edgar/Gabriele Unknown 06/08/2021 R efused Social History Tobacco Use: Social History Observation Description Date Details (start date - stop date) Never Smoker NA - NA Tobacco Use/Smoking Question Answer Notes Are you a: nonsmoker Additional Findings: Tobacco Non-User Current no n-smoker Alcohol Screen Question Answer Notes Did you have a drink containing alcohol in the p ast year? No Points 0 Interpretation Negative Tobacco use other than smoking: Question Answer Notes Are you an other tobacco user? No Section Notes: not saying about alcohol not saying about alcohol not saying about alcohol not saying about alcohol not saying about alcohol not saying about alcohol not saying about alcohol not saying about alcohol not saying about alcohol not saying about alcohol not saying about alcohol not saying about alcohol not saying about alcohol not saying about alcohol not saying about alcohol not saying about alcohol not saying about alcohol not saying about alcohol not saying about alcohol not saying about alcohol not saying about alcohol not saying about alcohol not saying about alcohol not saying about alcohol not saying about alcohol not saying about alcohol not saying about alcohol not saying about alcohol not saying about alcohol not saying about alcohol not saying about alcohol not saying about alcohol not saying about alcohol not saying about alcohol not saying about alcohol not saying about alcohol not saying about alcohol not saying about alcohol not saying about alcohol not saying about alcohol not saying about alcohol not saying about alcohol not saying about alcohol not saying about alcohol not saying about alcohol not saying about alcohol not saying about alcohol not saying about alcohol not saying about alcohol not saying about alcohol not saying about alcohol not saying about alcohol not saying about alcohol not saying about alcohol not saying about alcohol not saying about alcohol not saying about alcohol not saying about alcohol not saying about alcohol not saying about alcohol not saying about alcohol not saying about alcohol not saying about alcohol not saying about alcohol not saying about alcohol not saying about alcohol not saying about alcohol not saying about alcohol not saying about alcohol not saying about alcohol not saying about alcohol not saying about alcohol not saying about alcohol not saying about alcohol not saying about alcohol not saying about alcohol not saying about alcohol not saying about alcohol not saying about alcohol not saying about alcohol Problems Problem Type SNOMED Code ICD Code Onset Dates Problem Status W/U Status Risk Notes Problem Acquired hammer toe of right foot (9572029724950849 ) Other hammer toe(s) (acquired), right foot (M20.41) Active confirmed Problem Acquired hammer toe of left foot ([id number] ) Other hammer toe(s) (acquired), left foot (M20.42) Active confirmed Problem Polyneuropathy due to type 2 diabetes mellitus (211457594) Type 2 diabetes mellitus with diabetic polyneuropathy (E11.42) Active confirmed Plan Of Treatment Pending Test Test Name Order Date 34515-[id number] NAIL, 6 OR MORE 11/05/2010 45132-MABHXYR NAIL, 6 OR MORE 12/07/2010 58338-PBZDKBZ NAIL, 6 OR MORE 01/25/2011 47375-OKTAXMG NAIL, 6 OR MORE 04/12/2011 49373-ZJYSJPN NAIL, 6 OR MORE 05/17/2011 11609-AQADNHI NAIL, 6 OR MORE 06/21/2011 35351-EEOQGVO NAIL, 6 OR MORE 07/26/2011 76942-TTBOKUP NAIL, 6 OR MORE 08/30/2011 94843-UIUQZFE NAIL, 6 OR MORE 10/12/2011 37727-KTRBCIY NAIL, 6 OR MORE 11/15/2011 20116-WAPHNZB NAIL, 6 OR MORE 12/20/2011 54514-GMHFWIM NAIL, 6 OR MORE 01/24/2012 19947-TGMRFVC NAIL, 6 OR MORE 02/28/2012 68361-INFLJSF NAIL, 6 OR MORE 04/03/2012 10707-CRWQGBU NAIL, 6 OR MORE 05/11/2012 83196-EJOEKUN NAIL, 6 OR MORE 06/15/2012 55081-JXZVGUR NAIL, 6 OR MORE 07/16/2012 52464-THOCKQY NAIL, 6 OR MORE 08/21/2012 84235-JDZISIU NAIL, 6 OR MORE 09/18/2012 95215-VGORFDZ NAIL, 6 OR MORE 10/23/2012 17904-XLSBFRM NAIL, 6 OR MORE 11/27/2012 14875-IZQCSSA NAIL, 6 OR MORE 01/09/2013 31316-LCCLKSZ NAIL, 6 OR MORE 02/15/2013 66575-WBLDGJC NAIL, 6 OR MORE 03/19/2013 35768-RRAIZWF NAIL, 6 OR MORE 04/19/2013 58226-PDLAGOK NAIL, 6 OR MORE 06/14/2013 99879-OQBJUEF NAIL, 6 OR MORE 07/16/2013 67855-CUHDKKM NAIL, 6 OR MORE 08/20/2013 71866-FGMVLHN NAIL, 6 OR MORE 09/27/2013 25830-XFUKRRT NAIL, 6 OR MORE 10/29/2013 79609-TBLABUV NAIL, 6 OR MORE 11/29/2013 32190-PPNCERM NAIL, 6 OR MORE 12/24/2013 99914-DVCLWZQ NAIL, 6 OR MORE 01/31/2014 93747-WRNPOIO NAIL, 6 OR MORE 02/28/2014 65810-SQUZLIU NAIL, 6 OR MORE 04/15/2014 96982-GVLCPTI NAIL, 6 OR MORE 05/13/2014 38022-QHJOPTU NAIL, 6 OR MORE 06/17/2014 57518-JRLUPPP NAIL, 6 OR MORE 07/22/2014 97962-RNGKZQI NAIL, 6 OR MORE 08/26/2014 79611-GBMFWUG NAIL, 6 OR MORE 01/23/2015 60861-FDBLKIF NAIL, 6 OR MORE 04/06/2015 74449-HTMVJBQ NAIL, 6 OR MORE 07/29/2015 86916-NSSUEUC NAIL, 6 OR MORE 09/04/2015 86296-WRNXGJX NAIL, 6 OR MORE 10/02/2015 70903-ACQTAMM NAIL, 6 OR MORE 11/06/2015 56403-JDCTRLI NAIL, 6 OR MORE 12/08/2015 56746-HXQBWYS NAIL, 6 OR MORE 01/15/2016 59591-FLRCOJU NAIL, 6 OR MORE 02/12/2016 39522-BUEJRWL NAIL, 6 OR MORE 03/15/2016 65523-OVLEKIT NAIL, 6 OR MORE 04/19/2016 13396-WLCOCDN NAIL, 6 OR MORE 07/05/2016 06126-MQYNRKT NAIL, 6 OR MORE 08/09/2016 47081-AOSGQJQ NAIL, 6 OR MORE 09/06/2016 82306-CHSRHDO NAIL, 6 OR MORE 10/04/2016 78464-MSPLCPH NAIL, 6 OR MORE 11/08/2016 00563-QZAXZXW NAIL, 6 OR MORE 12/13/2016 33826-TZZBNVS NAIL, 6 OR MORE 01/20/2017 18672-RYBPHHT NAIL, 6 OR MORE 04/25/2017 42704-JLFOOFL NAIL, 6 OR MORE 06/30/2017 42018-GRJDKVO NAIL, 6 OR MORE 08/01/2017 73111-ABJTJWY NAIL, 6 OR MORE 09/05/2017 52326-ZJLSCOH NAIL, 6 OR MORE 02/13/2018 08337-DHMFUIR NAIL, 6 OR MORE 05/01/2018 07079-YIVHHWU NAIL, 6 OR MORE 07/06/2018 59331-FCFTNBM NAIL, 6 OR MORE 09/11/2018 81128-JFRJAAZ NAIL, 6 OR MORE 02/01/2019 66839-RLGGIEM NAIL, 6 OR MORE 04/23/2019 74515-ZYVAMSO NAIL, 6 OR MORE 07/02/2019 07914-UJPYMGT NAIL, 6 OR MORE 09/10/2019 43282-YKWZFHP NAIL, 6 OR MORE 11/12/2019 21856-BYYDJKM NAIL, 6 OR MORE 01/21/2020 27273-WZQYYXE NAIL, 6 OR MORE 04/24/2020 69154-GTLQEVP NAIL, 6 OR MORE 06/26/2020 72862-GLSYMQY NAIL, 6 OR MORE 09/01/2020 55837-SYTCGTY NAIL, 6 OR MORE 11/27/2020 50797-MIBLQCX NAIL, 6 OR MORE 03/25/2021 57588-PZSTERO NAIL, 6 OR MORE 06/08/2021 65974-JJCHIOJ NAIL, 6 OR MORE 08/24/2021 48552-RVTZQNR NAIL, 6 OR MORE 11/09/2021 69286-Disthedi Plate 05/10/2013 05315-Wkfqrrrb Plate 09/26/2014 66674-Ozlukeuk Plate 04/12/2011 97678-ZNVY SKIN LESIONS, OVER 4 05/17/19 12 95027-LJKK SKIN LESIONS, OVER 4 08/30/19 12 10427-WGNT SKIN LESIONS, OVER 4 06/21/19 12 47829-OYAB SKIN LESIONS, OVER 4 07/26/19 12 64268-XBTL SKIN LESIONS, OVER 4 04/12/19 12 13374-ZYFP SKIN LESIONS, OVER 4 03/01/20 11 21373-FRIQ SKIN LESIONS, OVER 4 12/08/19 11 70118-SGPV SKIN LESIONS, OVER 4 01/26/20 11 80808-PNPX SKIN LESIONS, OVER 4 11/06/19 11 79503-GFLU SKIN LESIONS, OVER 4 06/16/19 13 99184-MZXK SKIN LESIONS, OVER 4 05/12/19 13 87647-RGTN SKIN LESIONS, OVER 4 04/03/19 13 12182-UJYA SKIN LESIONS, OVER 4 02/28/20 12 84883-QZUJ SKIN LESIONS, OVER 4 01/24/20 12 10565-JNBG SKIN LESIONS, OVER 4 12/20/19 12 89138-KWGF SKIN LESIONS, OVER 4 11/15/19 12 08551-KNDI SKIN LESIONS, OVER 4 10/12/19 12 06306-COCG SKIN LESIONS, OVER 4 02/01/20 14 72763-EACY SKIN LESIONS, OVER 4 12/25/19 14 17179-YMKL SKIN LESIONS, OVER 4 11/30/19 14 69507-BJYJ SKIN LESIONS, OVER 4 10/30/19 14 90020-QKQM SKIN LESIONS, OVER 4 09/28/19 14 02276-LGGA SKIN LESIONS, OVER 4 07/17/19 14 18677-REWM SKIN LESIONS, OVER 4 08/21/19 14 05773-HWOJ SKIN LESIONS, OVER 4 06/15/19 14 73164-WZRN SKIN LESIONS, OVER 4 04/19/19 14 51702-NIRZ SKIN LESIONS, OVER 4 03/19/19 14 47445-JOVX SKIN LESIONS, OVER 4 02/16/20 13 40400-RFLG SKIN LESIONS, OVER 4 01/10/20 13 96961-ALGO SKIN LESIONS, OVER 4 11/28/19 13 35822-EKEO SKIN LESIONS, OVER 4 10/24/19 13 25170-FDMK SKIN LESIONS, OVER 4 09/19/19 13 78685-KCAX SKIN LESIONS, OVER 4 08/22/19 13 09578-CXRU SKIN LESIONS, OVER 4 07/17/19 13 61518-QLUO SKIN LESIONS, OVER 4 01/24/20 15 87917-ANBH SKIN LESIONS, OVER 4 08/27/19 15 92652-JJEB SKIN LESIONS, OVER 4 07/23/19 15 81867-SSGK SKIN LESIONS, OVER 4 06/18/19 15 99717-ENXE SKIN LESIONS, OVER 4 05/14/19 15 78502-PADU SKIN LESIONS, OVER 4 04/15/19 15 20991-FHMR SKIN LESIONS, OVER 4 02/29/20 14 46348-QBOM SKIN LESIONS, OVER 4 02/12/20 16 78331-NQNJ SKIN LESIONS, OVER 4 01/15/20 16 43418-TTMC SKIN LESIONS, OVER 4 12/08/19 16 52282-NAXK SKIN LESIONS, OVER 4 11/06/19 16 90163-NYWA SKIN LESIONS, OVER 4 10/02/19 16 32256-VAOY SKIN LESIONS, OVER 4 09/04/19 16 44874-ZFRJ SKIN LESIONS, OVER 4 07/29/19 16 17828-TFGX SKIN LESIONS, OVER 4 04/06/19 16 77206-CPGQ SKIN LESIONS, OVER 4 09/12/19 19 59541-GFVJ SKIN LESIONS, OVER 4 07/07/19 19 89638-VEQA SKIN LESIONS, OVER 4 05/01/19 19 42895-ZEXB SKIN LESIONS, OVER 4 02/14/20 18 69420-QEMD SKIN LESIONS, OVER 4 09/06/19 18 12456-FGUL SKIN LESIONS, OVER 4 08/02/19 18 68483-SUSQ SKIN LESIONS, OVER 4 07/01/19 18 71889-HXFB SKIN LESIONS, OVER 4 04/25/19 18 71521-DKXK SKIN LESIONS, OVER 4 01/21/20 17 50421-ASAG SKIN LESIONS, OVER 4 12/14/19 17 77239-QJXE SKIN LESIONS, OVER 4 11/09/19 17 88184-ASDP SKIN LESIONS, OVER 4 10/05/19 17 95301-VPDO SKIN LESIONS, OVER 4 09/07/19 17 05081-FBXU SKIN LESIONS, OVER 4 07/06/19 17 39356-RQUJ SKIN LESIONS, OVER 4 08/10/19 17 24233-JBJX SKIN LESIONS, OVER 4 04/19/19 17 53830-AASE SKIN LESIONS, OVER 4 03/15/19 17 12519-ULVV SKIN LESIONS, OVER 4 11/10/19 22 17973-MGZV SKIN LESIONS, OVER 4 08/25/19 22 88298-JSNW SKIN LESIONS, OVER 4 06/09/19 22 43738-JESI SKIN LESIONS, OVER 4 03/25/19 22 58456-ZXTR SKIN LESIONS, OVER 4 11/28/19 21 04019-SHFC SKIN LESIONS, OVER 4 09/02/19 21 26550-CPAN SKIN LESIONS, OVER 4 06/27/19 21 78756-DNUH SKIN LESIONS, OVER 4 04/24/19 26142-AMUQ SKIN LESIONS, OVER 4 01/21/20 20 59187-BANY SKIN LESIONS, OVER 4 11/12/19 20 76653-NADY SKIN LESIONS, OVER 4 09/10/19 20 17322-LEAM SKIN LESIONS, OVER 4 07/02/19 20 30062-ZOBK SKIN LESIONS, OVER 4 04/23/19 20 00777-WQSP SKIN LESIONS, OVER 4 02/02/20 19 O0888-VNMBJWDM DYSTROPHIC NAILS ANY # Insurance Providers Payer Name Payer Address Payer Phone Subscriber Number Group Number Insured Name Patient Relationship to Insured Coverage Start Date Coverage End Date [employer] [address] [place] [address] [id number] Nilam Mahajan Self - patient is the insured 6 Medical (General) History Medical History History ICD Code cancer, breast sjogren syndrome mumps measles hypertension chicken pox hyperlipidemia Arthritis type II diabetes Surgical History Surgery Date(Month/Year) section 1977 cholecystectomy 2008 lumpectomy 2005 breast biopsy 2011 colonoscopy 01/07/2020 Tooth extraction- very infected tooth 06/19/2020 Hospitalization History Reason Date(Month/Year) [facility] - concussion 09/2011 [facility] ER, UTI, staph infection, kidne y stones, case of dementia 09/12/2013 PCP - UTI antiboitic taken 7 days 2021
--- OUTSIDE RECORDS SUMMARY | 2025-01-10 12:25 | XMS_ITS | Clinical Summary ---
Author Organization [facility] Address [address] [place] [address] Care Team Providers Care Residential Subcontractor Name Role Phone Sharon Arias MD Primary Care Provider [phone] Allergies Active Allergy Reactions Criticality Noted Date Comments Gabapentin Hallucinations 04/10/2023 Medications Lantus Solostar U-100 Insulin 100 unit/mL (3 mL) insulin pen injection SMARTSI Unit(s) SUB-Q Every Morning 01/02/2023 Active HumaLOG KwikPen Insulin 100 unit/mL insulin pen Active BD Ultra-Fine Short Pen Needle 31 gauge x 5/16 needle SMARTSIG:Inj ection 4 Times Daily 12/29/2022 Active metFORMIN (GLUCOPHAGE) 500 mg tablet Take 500 mg by mouth 2 times a day with meals. Active cholecalciferol (VITAMIN D3) 2,000 unit tablet Take 1 tablet by mouth once a day. Active [id number] ORAL Take by mouth. Active semaglutide (Ozempic) 1 mg/dose (4 mg/3 mL) pen injector Inject 0.75 mL (1 mg total) under the skin once a week. 9 mL 3 04/10/2023 Active FreeStyle Flash System meterIndication s:Other specified diabetes mellitus with other specified complication, with long-term current use of insulin CHANGE SENSOR EVERY 14 DAYS 1 each 3 04/18/2023 Active FreeStyle Duane 3 Sensor deviceIndicatio ns:Other specified diabetes mellitus with other specified complication, with long-term current use of insulin Change sensor every 14 days. 2 each 11 04/13/2023 Active rosuvastatin (CRESTOR) 20 mg tabletIndicatio ns:Dyslipidemia Take 1 tablet (20 mg total) by mouth once a day. 90 tablet 3 04/18/2023 Active Active Problems Problem Noted Date Diagnosed Date Other specified diabetes adali litus with other specified complication 04/10/2023 Class 2 drug-induced obesity with serious comorbidity and body mass index (BMI) of 37.0 to 37.9 in adult 04/10/2023 H/O three vessel coronary artery bypass 04/10/19 Social History Tobacco Use Types Packs/Day Years Used Date Smoking Tobacco: Never Assessed Comments Unknown Sex and Gender Information Value Date Recorded Sex Assigned at Female 04/05/2023 1:00 PM EST Legal Sex Female 2:11 PM EDT Gender Identity Female 04/05/2023 1:00 PM EST Sexual Orientation Choose not to disclose 2023 1:00 PM EST Last Filed Vital Signs Vital Sign Reading Time Taken Comments Blood Pressure 142/88 04/10/2023 3:13 PM EST Pulse 79 04/10/2023 3:13 PM EST Temperature - - Respiratory Rate - - Oxygen Saturation 98% 04/10/2023 3:13 PM EST Inhaled Oxygen Concentration - - Weight 87.1 kg (192 lb) 04/10/2023 3:13 PM EST Height 152.4 cm (5') 04/10/2023 3:13 PM EST Body Mass Index 37.5 04/10/2023 3:13 PM EST Plan of Treatment Health Maintenance Due Date Last Done Comments Cologuard 1950 Colon Cancer Screening 1950 Colonoscopy 1950 FOBT / Fit Test 1950 Hepatitis C Screening 1950 Sigmoidoscopy 1950 Ophthalmology Exam 02/06/1960 DTaP,Tdap,and Td Vaccines (1 - Tdap) 02/06/1972 Osteoporosis Screening 02/06/2000 Zoster Vaccines (1 of 2) 02/06/2000 RSV Vaccine (60+ years old and patients) (1 - Risk 60-74 years 1-dose series) 2010 Hemoglobin A1C 10/09/2023 04/10/2023 Alcohol/Substance Use Screening 03/13/2024 Depression Screening and Follow-Up 03/13/2024 Health Care Proxy Review 03/13/2024 Social Drivers of Health Annual Screening 03/13/2024 Basic Metabolic Panel 04/14/2024 04/14/2023 Urine Microalbumin 04/14/2024 04/14/2023 COVID-19 Vaccine ( season) 2024 Influenza Vaccine (#1) 2024 0, 11/28/2019, 01/04/2019, Additional history exists Pneumococcal Vaccine: 50+ Years Completed 12/31/2021, 01/25/2018 Hepatitis B Vaccines Aged Out No long er eligible based on patient's age to complete this topic Procedures * Due to [place] [employer] law, this organization might not be sharing negative HIV tests. Procedure Name Priority Date/Time Associated Diagnosis Comments MICROALBUMIN, RANDOM URINE WITH CREATININE Routine 04/14/2023 1:28 PM EST Other specified diabetes mellitus with other specified complication, with long-term current use of insulin COMPREHENSIVE METABOLIC PANEL Routine 04/14/2023 1:28 PM EST Other specified diabetes mellitus with other specified complication, with long-term current use of insulin POCT GLYCOSYLATED HEMOGLOBIN (HGB A1C), WORKLIST Routine 04/10/2023 3:22 PM EST Other specified diabetes mellitus with other specified complication, with long-term current use of insulin from Last 3 Months or Most Recently Relevant to Health Maintenance Results * Due to [place] [employer] law, this organization might not be sharing negative HIV tests. * (ABNORMAL) Microalbumin/Creatinine Urine, Random (04/14/2023 1:28 PM EST) Creatinine, Urine 184 mg/dL 04/14/2023 7:09 PM EST [facility] Microalbumin, Urine 74(H) <=20 mg/L 04/14/2023 7:09 PM EST [facility] Microalb/Creat Ratio, Random Urine 40.2(H) 1.3 - 30.0 mg/g 04/14/2023 7:09 PM EST [facility] Comment:Not Performed Urine Urine specimen collection, clean catch / Unknown Non-Blood Collection / Unknown 04/14/2023 1:28 PM EST 04/14/2023 1:33 PM EST us Isael Sanabria MD LAB URINE ORDERABLES Nathaly l Result [facility] [address] [place] [address], [place] [phone] * (ABNORMAL) Comprehensive Metabolic Panel (04/14/2023 1:28 PM EST) NA 140 136 - 145 mmol/L 04/14/2023 6:56 PM EST [facility] K 4.1 3.5 - 5.1 mmol/L 04/14/2023 6:56 PM EST [facility] Cl 107 98 - 109 mmol/L 04/14/2023 6:56 PM EST [facility] CO2 27 23 - 32 mmol/L 04/14/2023 6:56 PM EST [facility] Anion Gap 10 >=0 04/14/2023 6:56 PM EST [facility] Glucose 192(H) 60 - 99 mg/dL 04/14/2023 6:56 PM EST [facility] Creatinine 0.77 0.50 - 1.12 mg/dL 04/14/2023 6:56 PM EST [facility] Calcium 9.3 8.4 - 10.4 mg/dL 04/14/2023 6:56 PM EST [facility] Total Protein 7.3 6.6 - 8.7 g/dL 04/14/2023 6:56 PM EST [facility] Albumin 4.2 3.5 - 5.0 g/dL 04/14/2023 6:56 PM EST [facility] Bilirubin, Total 0.3 0.2 - 1.2 mg/dL 04/14/2023 6:56 PM EST [facility] Alkaline Phosphatase 83 40 - 129 U/L 04/14/2023 6:56 PM EST [facility] AST 19 0 - 33 U/L 04/14/2023 6:56 PM EST [facility] ALT 16 <=33 U/L 04/14/2023 6:56 PM EST [facility] BUN 15 8 - 23 mg/dL 04/14/2023 6:56 PM EST [facility] eGFR 82 >=60 mL/min/1. 73m2 04/14/2023 6:56 PM EST [facility] Comment:The estimated glomer ular filtration rate (eGFR) is calculated using a new formula developed by the NKF-ASN task force to eliminate race-based correction factors. The new formula uses serum/plasma creatinine, age, and gender to determine eGFR. A value below 60mls/min might indicate kidney disease and will be flagged. For additional information, see Miller et al, Am J Kidney Dis. 2021;79(2):268- 288, A Unifying Approach for GFR estimation: Recommendations of the NKF-ASN Task Force on Reassessing the Inclusion of Race in Diagnosing Kidney Disease . Globulin, Total 3.1 2.1 - 4.2 g/dL 04/14/2023 6:56 PM EST [facility] A/G Ratio 1.4(L) 1.5 - 3.0 04/14/2023 6:56 PM EST [facility] Blood Structure of peripheral vein / Unknown Venipuncture / Unknown 04/14/2023 1:28 PM EST 04/14/2023 1:33 PM EST Isael Sanabria MD LAB BLOOD ORDERABLES Nathaly l Result [facility] [address] [place] [id number], * POCT Glycosylated Hemoglobin (HGB A1C) (04/10/2023 3:22 PM EST) Blood Structure of peripheral vein / Unknown 04/10/2023 3:22 PM EST Impressions [facility] - 04/10/2023 3:22 PM EST 8.6 Isael Sanabria MD NURSING POC ORDERABLES - DEVICE Final Result [facility] from Last 3 Months or Most Recently Relevant to Health Maintenance Insurance [facility] Care Teams Residential Subcontractor Relationship Specialty Start Date End Date Sharon Arias MD [address] [place], [place] [id number] PCP - General Internal Medicine 12/06/22
== END 2025-01-10 13:16 | disposition home or self-care (01) ==
LOC: HO.HMCHD 10:54
PROVIDERS: PCP Internal Medicine; Visit Provider Internal Medicine
DX: I10 Essential (primary) hypertension (principal); E78.5 Hyperlipidemia, unspecified; I25.10 Atherosclerotic heart disease of native coronary artery without angina pectoris; E11.69 Type 2 diabetes mellitus with other specified complication; E66.9 Obesity, unspecified; D64.9 Anemia, unspecified; R41.82 Altered mental status, unspecified; E55.9 Vitamin D deficiency, unspecified

== ENCOUNTER → 2025-01-10 10:54 | Outpatient (BNVA) | payer MEDICARE, SELFPAY | PROVIDERS: PCP Internal Medicine; Visit Provider Internal Medicine | DX: I10 Essential (primary) hypertension (principal); E78.5 Hyperlipidemia, unspecified; I25.10 Atherosclerotic heart disease of native coronary artery without angina pectoris; E11.69 Type 2 diabetes mellitus with other specified complication; E66.9 Obesity, unspecified; Z68.37 Body mass index [BMI] 37.0-37.9, adult; D64.9 Anemia, unspecified; R41.82 Altered mental status, unspecified; E55.9 Vitamin D deficiency, unspecified; M77.8 Other enthesopathies, not elsewhere classified; E04.2 Nontoxic multinodular goiter; F41.9 Anxiety disorder, unspecified; F43.9 Reaction to severe stress, unspecified; H53.8 Other visual disturbances; Z79.4 Long term (current) use of insulin; Z13.30 Encounter for screening examination for mental health and behavioral disorders, unspecified; Z13.39 Encounter for screening examination for other mental health and behavioral disorders | CPT/HCPCS: 96127; 99212 ==

== ENCOUNTER 2025-01-13 09:33 | Outpatient (REF) | payer MEDICARE, SELFPAY ==
--- OUTSIDE RECORDS SUMMARY | 2025-01-09 10:15 | XMS_ITS | Encounter Summary ---
Author Organization [facility] Address [address] [place] [address] Care Team Providers Care Special Education Aide Name Role Phone Sharon Arias MD Primary Care Provider [phone]- [phone] Reason for Referral * Consultation (Routine) - Authorized Specialty Diagnoses / Procedures Referred By Contact Referred To Contact Podiatry / Orthopaedic Surgery Diagnoses Type 2 diabetes mellitus without complications, unspecified whether detention insulin use (CMS/HCC V24, CMS/HCC V28) Violetta Martinez PA [address] [place] [address] Phone: tel: fax: Orthopedic Surgery [address] [address] Phone: tel: fax: Referral ID Status Reason Start Date Expiration Date Visits Requested Visits Authorized [id number] Authorized Specialty Services Required 01/09/2026 1 1 * Consultation (Routine) - Authorized Specialty Diagnoses / Procedures Referred By Contac t Referred To Contact Internal Medicine Diagnoses Secondary hypertension Violetta Martinez PA [address] [place] [address] Phone: tel: fax: Edda Zapata, PharmD [address] [place] [address] Phone: tel: fax: Referral ID Status Reason Start Date Expiration Date Visits Requested Visits Authorized [id number] Authorized Specialty Services Required 01/09/2026 1 1 Reason for Visit * Reason Comments Follow-up Thyroid and Diabetes Discuss Labs Encounter Details Date Type Department Care Team (Late st Contact Info) Description 01/09/2025 11:15 AM EDT Office Visit Endocrinology - [place] [address] [place] [address] Violetta Martinez PA [address] [place] [address] Type 2 diabetes mellitus without complications, unspecified whether exterminator termite insulin use (CMS/[facility] V24, CMS/[facility] V28) (Primary Dx); Secondary hypertension Social History Tobacco Use Types Packs/Day Years Used Date Smoking Tobacco: Never Smokeless Tobacco: Never Tobacco Cessation:Counseling Given: Not Answered Comments No Sex and Gender Information Value Date Recorded Sex Assigned at Not on file Legal Sex Female 5:30 AM EST Gender Identity Not on file Sexual Orientation Not on file documented as of this encounter Last Filed Vital Signs Vital Sign Reading Time Taken Comments Blood Pressure 152/76 01/09/2025 11:03 AM EDT 5 min Pulse 72 01/09/2025 11:03 AM EDT 5 mi n Temperature 36.3 C (97.3 F) 01/09/2025 10:57 AM EDT Respiratory Rate - - Oxygen Saturation - - Inhaled Oxygen Concentration - - Weight 87.5 kg (193 lb) 01/09/2025 10:57 AM EDT Height 152.4 cm (5') 01/09/2025 10:57 AM EDT Body Mass Index 37.69 01/09/2025 10:57 AM EDT documented in this encounter Ordered Prescriptions Prescription Sig Dispense Quantity Refills Last Filled Start Date End Date insulin lispro (HumaLOG KwikPen) 100 unit/mL injection pen Inject 3 times a day with meals per sliding scale: 100-150: 10 units; 151-200: 11 units; 201-250: 12 units; 251-300: 13 units; 301-350: 14 units; 351-400: 15 units; call office if BS 400 15 mL 11 01/09/2025 Lantus Solostar U-100 Insulin 100 unit/mL (3 mL) injection pen Inject 70 Units under the skin 1 (one) time each day in the morning. 15 mL 11 01/09/2025 documented in this encounter Progress Notes * Bruce Hernandez MA - 01/09/2025 11:15 AM EDT Visit Vitals BP (!) 152/76 (BP Location: Right arm, Patient Position: Sitting, BP Cuff Size: Large adult) Comment: 5 min Pulse 72 Comment: 5 min Temp 36.3 ??C (97.3 ??F) (Temporal) Ht 1.524 m (60 ) Wt 87.5 kg (193 lb) BMI 37.69 kg/m?? OB Status Postmenopausal Smoking Status Never BSA 1.84 m?? If blood pressure is greater than 140/90 was average BP completed? yes Medication list reviewed and refills pended: Yes Blood sugar: CGM Readin. Is sugar <70 or > 400? No.. Is patient on CGM? No. .If yes, please update blue sticky note with DME or pharmacy information. Are labs up to date? no Foot Exam Due: yes Eye Exam Due: yes * MARCOS Barton - 01/09/2025 11:15 AM EDT CHIEF COMPLAINT: Follow-up (Thyroid and Diabetes Discuss Labs ) IDENTIFIER: Nilam Baker is a 74 y.o. old female. HPI: Patient presents to the office for diabetes. Past medical history of type 2 diabetes, hypertension,hyperlipidemia, coronary artery disease, PATRICIA, A-fib, history of breast cancer. Type 2 diabetes: Lab Results Component Value Date HGBA1C 9.0 (H) 10/07/2024 diagnosed with diabetes in 1999. Denies hospitalizations due to diabetes complications No hypoglycemic episodes States she saw 2 previous personal lines insurance agent but not 1 recently. She used to go to [facility] Blood sugar in the office 179 Averages 173, 153, 168, 201, 257, 263, 271, 240 Average 214 Time in range 36% Time above 180 is 35% Time above 250 is 29% Blood sugar still remaining elevated She is due for blood work States she has a history of fatty liver disease Current medication regimen include Humalog 3 times a day with meals per sliding scale, Lantus 62 units, she was supposed to be doing 70 Was doing metformin. Not taking it currently due to side effects States she cannot use Ozempic due to family history of medullary thyroid cancer. States she has never had an ultrasound She has 2 first cousins with medullary thyroid cancer from each side of the family Denies thyroid gland enlargement difficulty swallowing. She did used Jardiance before. States she does not remember why it was stopped, but she does recallgetting UTI and yeast issues Blood pressure is elevated 150/68, 152/76. When I try to have the conversation with patient that her blood pressure is high she states that is not high. States that this is good for her as she has had it higher that her daughter tells her that this is a good blood pressure reading for her Currently she is on Lasix 20 mg PCP is out of this practice States she is up-to-date with bone density. Had it done earlier this year Up-to-date with eye exam. Due for podiatry appointment Wt Readings from Last 3 Encounters: 01/09/25 87.5 kg (193 lb) 09/30/24 87.5 kg (192 lb 12.8 oz) ROS: GENERAL: No malaise, significant weight loss or fever HEENT: No changes in hearing or vision, nose bleeds or other nasal problems RESPIRATORY: No cough, wheezing or shortness of breath CARDIOVASCULAR: No chest pain, leg swelling or palpitations GI: No abdominal discomfort, blood in stools or black stools ENDOCRINE: See HPI MUSCULOSKELETAL: No joint pain or swelling, back pain, or muscle pain. NEURO: No persistent headache, syncope, seizures, weakness or numbness PAST MEDICAL HISTORY: Patient Active Problem List Diagnosis Date Noted Type 2 diabetes mellitus without complications ([facility] V24, [facility] V28) 01/09/2025 Essential hypertension 09/30/2024 Malignant neoplasm of breast ([facility] V24, [facility] V28) 09/30/2024 Obstructive sleep apnea 09/30/2024 Pure hypercholesterolemia 09/30/2024 Supraventricular tachycardia ([facility] V24) 09/30/2024 Severe obesity ([facility] V24, [facility] V28) 09/30/2024 Benign hypertension 08/01/2024 Coronary artery disease 08/01/2024 Hyperglycemia 08/01/2024 Paroxysmal atrial fibrillation ([facility] V24, [facility] V28) 08/01/2024 Other specified diabetes mellitus with other specified complication ([facility] V24, [facility] V28) 04/10/2023 SOCIAL HISTORY: Social History Tobacco Use Smoking status: Never Smokeless tobacco: Never Substance Use Topics Alcohol use: Not on file FAMILY HISTORY: No family status information on file. No family history on file. ACTIVE MEDICATIONS: Outpatient Medications Marked as Taking for the 01/09/25 encounter (Office Visit) with MARCOS Barton Medication Sig Dispense Refill cholecalciferol (VITAMIN D-3) 50 mcg (2,000 unit) tablet Take 1 tablet (2,000 Units total) by mouth1 (one) time each day. ciclopirox (LOPROX) 0.77 % cream Apply 1 Application topically 2 (two) times a day. APPLY TO AFFECTED AREA furosemide (LASIX) 20 mg tablet Take 1 tablet (20 mg total) by mouth if needed. Swelling insulin lispro (HumaLOG KwikPen) 100 unit/mL injection pen Inject 3 times a day with meals per sliding scale: 100-150: 10 units; 151-200: 11 units; 201-250: 12 units; 251-300: 13 units; 301-350: 14 units; 351-400: 15 units; call office if BS 400 15 mL 11 Lantus Solostar U-100 Insulin 100 unit/mL (3 mL) injection pen Inject 70 Units under the skin 1 (one) time each day in the morning. 15 mL 11 pen needle, diabetic (BD Ultra-Fine Short Pen Needle) 31 gauge x 5/16 needle Use to inject 1-4 times daily as directed 100 each 11 RED BEET ORAL Take 1 each by mouth 1 (one) time each day. Blood pressure simethicone (Gas-X Extra Strength) 125 mg chewable tablet Chew 1 tablet (125 mg total) every 6 (six) hours if needed. UNABLE TO FIND Take 1 capsule by mouth 1 (one) time each day. Green bledsoe coffee extract [DISCONTINUED] HumaLOG KwikPen Insulin 100 unit/mL injection pen Inject under the skin 3 (three) times a day before meals. [DISCONTINUED] insulin lispro (HumaLOG KwikPen) 100 unit/mL injection pen Inject 3 times a day withmeals per sliding scale: 100-150: 8 units; 151-200: 9 units; 201-250: 10 units; 251-300: 11 units; 301-350: 12 units; 351-400: 13 units; call office if BS 400 15 mL 11 [DISCONTINUED] Lantus Solostar U-100 Insulin 100 unit/mL (3 mL) injection pen Inject 70 Units underthe skin 1 (one) time each day in the morning. ALLERGIES: Adhesive, Gabapentin, Nifedipine, and Wcqqwec-vcp-dqh reductase inhibitors PHYSICAL EXAM: Blood pressure (!) 152/76, pulse 72, temperature 36.3 ??C (97.3 ??F), temperature source Temporal, height 1.524 m (60 ), weight 87.5 kg (193 lb). Body mass index is 37.69 kg/m??. BMI is greater than 25.0 (above the normal range) - see Plan APPEARANCE: Alert and in no acute distress NEURO: Awake, alert and oriented x 3 LABS: Lab Results Component Value Date HGBA1C 9.0 (H) 10/07/2024 CHOL 240 (H) 10/07/2024 HDL 35 (L) 10/07/2024 TRIG 288 (H) 10/07/2024 Lab Results Component Value Date GLUCOSE 269 (H) 10/07/2024 Lab Results Component Value Date TSH 2.68 10/07/2024 IMAGING: IMPRESSION: 1. Type 2 diabetes mellitus without complications, unspecified whether detention insulin use ([facility] V24, [facility] V28) 2. Secondary hypertension PLAN: Patient presents to the office for diabetes consultation 1. Diabetes: Previous history reviewed Last A1c above goal Due for blood work CGM data demonstrates sugar still not well-controlled Increase sliding scale by 2 units Lantus increased to 70 units Continue lifestyle modifications Follow-up in 3 months 2. Hypertension: Blood pressure elevated. Referral placed back to PCP All questions and concerns were addressed. Patient understands and agrees with this treatment plan.Patient was reminded to call or return to the office if any new or existing problems arise This document was made using voice recognition software. It may contain some errors in grammar or syntax Medication and lab orders: Type 2 diabetes mellitus without complications, unspecified whether exterminator termite insulin use ([facility] V24, [facility] V28) (Primary) - Hemoglobin A1c; Future - Ambulatory referral to Podiatry; Future Secondary hypertension - Ambulatory referral to Internal Medicine; Future Other orders - Lantus Solostar U-100 Insulin 100 unit/mL (3 mL) injection pen; Inject 70 Units under the skin 1 (one) time each day in the morning. Dispense: 15 mL; Refill: 11 - insulin lispro (HumaLOG KwikPen) 100 unit/mL injection pen; Inject 3 times a day with meals per sliding scale: 100-150: 10 units; 151-200: 11 units; 201-250: 12 units; 251-300: 13 units; 301-350: 14 units; 351-400: 15 units; call office if BS 400 Dispense: 15 mL; Refill: 11 MARCOS Barton on 01/09/2025 at 2:42 PM EDT documented in this encounter Plan of Treatment Upcoming Encounters Date Type Department Care Team (Late st Contact Info) Description 01/28/2025 10:00 AM EST Appointment Radiology Department - [address] [phone] 04/11/2025 11:00 AM EST Office Visit Endocrinology - [address] [phone] Michelle Matthews MD [address] [place] [address] Scheduled Orders Name Type Priority Associated Diagnoses Orde r Schedule Hemoglobin A1c Lab Routine Type 2 diabetes mellitus without complications, unspecified whether detention insulin use ([facility] V24, [facility] V28) 1 Occurrences starting 01/09/2025 until 01/09/2026 Scheduled Referrals Name Type Priority Associated Diagnoses Orde r Schedule Ambulatory referral to Internal Medicine Outpatient Referral Routine Secondary hypertension 1 Occurrences starting 01/09/2025 until 01/09/2026 Ambulatory referral to Podiatry Outpatient Referral Routine Type 2 diabetes mellitus without complications, unspecified whether exterminator termite insulin use ([facility] V24, [facility] V28) 1 Occurrences starting 01/09/2025 until 01/09/2026 documented as of this encounter Visit Diagnoses Diagnosis Type 2 diabetes mellitus without complications, unspecified whether exterminator termite insulin use ([facility] V24, [facility] V28)- Primary Secondary hypertension Other secondary hypertension, unspecified documented in this encounter Discontinued Medications Medication Sig Discontinue Reason Start Date End Da te HumaLOG KwikPen Insulin 100 unit/mL injection pen Inject under the skin 3 (three) times a day before meals. Formulary change 05/22/2024 01/09/2025 metFORMIN XR (GLUCOPHAGE-XR) 500 mg 24 hr tablet Take 2 tabs twice a day with meals Formulary change 09/30/2024 01/09/2025 Lantus Solostar U-100 Insulin 100 unit/mL (3 mL) injection pen Inject 70 Units under the skin 1 (one) time each day in the morning. Reorder 01/02/2023 01/09/2025 insulin lispro (HumaLOG KwikPen) 100 unit/mL injection pen Inject 3 times a day with meals per sliding scale: 100-150: 8 units; 151-200: 9 units; 201-250: 10 units; 251-300: 11 units; 301-350: 12 units; 351-400: 13 units; call office if BS 400 Reorder 09/30/2024 01/09/2025 documented as of this encounter Care Teams Special Education Aide Relationship Specialty Start Date End Date Sharon Arias [facility] [place] [address] PCP - General Internal Medicine 09/30/24 documented as of this encounter
[2025-01-13 10:38] LABS: MANUAL DIFF FLAG NO
[2025-01-13 10:51] LABS: Hematocrit 42.9 % (37.0-47.0); Hemoglobin 14.0 g/dl (12.0-16.0); Imm Gran Abs Auto 0.03 X10*3/uL (0.00-0.03); Imm Gran Pct Auto 0.7 % (0.0-0.4); Lymphocytes Absolute Auto 0.8 X10*3/uL (1.2-4.9); Mean Corpuscular HGB Conc 32.6 g/dl (31.0-35.0); Mean Corpuscular Hemoglobin 27.0 pg (27.0-33.0); Mean Corpuscular Volume 82.8 fL (80.0-98.0); NRBC Abs Auto 0.000 X10*3/uL (0.0-0.012); NRBC Pct Auto 0.0 /100WBC (0.0-0.2); Platelet Count 223 X10*3/uL (160-400); Red Blood Count 5.18 X10*6/uL (4.20-5.50); White Blood Count 4.3 X10*3/uL (4.8-10.8)
--- OUTSIDE RECORDS SUMMARY | 2025-01-13 10:55 | XMS_ITS | Clinical Summary ---
Author Organization [facility] [address] [place] [address] Address [address] [facility] [place] [address] Phone Care Team Providers Care Extractor Tender Raw Stock Name Role Phone Sharon Arias MD Primary Care Provider [phone] Allergies Active Allergy Reactions Criticality Noted Date Comments Adhesive Other 09/30/2024 Skin irritation/ burning Gabapentin Hallucinations 04/10/2023 Nifedipine Weight Gain 09/30/2024 Uizfggq-Men-Fdh Reductase Inhibitors Unknown 09/30/2024 PT doesn't recall [...] Type 2 diabetes mellitus wit hout complications ([facility] V24, [facility] V28) 01/09/2025 Essential hypertension 09/30/2024 Malignant neoplasm of breast ([facility] V24, [facility] V28) 09/30/2024 Obstructive sleep apnea 09/30/2024 Pure hypercholesterolemia 09/30/2024 Supraventricular tachycardia ([facility] V24) 09/30 Severe obesity ([facility] V24, [facility] V28) 2024 Benign hypertension 08/01/2024 Coronary artery disease 08/01/2024 Hyperglycemia 08/01/2024 Paroxysmal atrial fibrillation ([facility] V24, [facility] V28) 08/01/2024 Other specified diabetes adali litus with other specified complication ([facility] V24, [facility] V28) 04/10/2023 Encounters Date Type Department Care Team Description 01/09/2025 11:15 AM EDT Office Visit Endocrinology - [address] [phone] Violetta Martinez PA Type 2 diabetes mellitus without complications, unspecified whether nursing home insulin use ([facility] V24, [facility] V28) (Primary Dx); Secondary hypertension 10/23/2024 8:36 AM EDT - 10/23/2024 11:59 PM EDT Hospital Encounter Radiology Department - [address] [phone] Thyroid nodule Discharge Disposition: Home or Self [...] 10:00 AM EST Appointment Radiology Department - [address] [phone] 04/11/2025 11:00 AM EST Office Visit Endocrinology - [address] [phone] Michelle Matthews MD [address] [place], [place] Health Maintenance Due Date Last Done [...] Signed Date: 10/23/2024 10:23 ET Workstation ID: [id number] Transcribed By: Self Edit Transcribed Date: 10/23/2024 [...] Signed Date: 10/23/2024 10:23 ET Workstation ID: [id number] Transcribed By: Self Edit Transcribed Date: 10/23/2024 10:21 ET us Violetta RODRÍGUEZ IMG US PROCEDURES Final Res ult * (ABNORMAL) Lipid panel with reflex to direct LDL (10/07/2024 9:14 AM EDT) Cholesterol 240(H) 0 - 200 mg/dL LAB CHEMISTRY METHOD 10/07/2024 1:42 PM EDT [facility] Triglycerides 288(H) 0 - 150 mg/dL LAB CHEMISTRY METHOD 10/07/2024 1:42 PM EDT [facility] HDL 35(L) >=40 mg/dL LAB CHEMISTRY METHOD 10/07/2024 1:42 PM EDT [facility] LDL Calculated 147(H) 0 - 100 mg/dL LAB CHEMISTRY METHOD 10/07/2024 1:42 PM EDT [facility] VLDL Cholesterol David 57.6 mg/dL LAB CHEMISTRY METHOD 10/07/2024 1:42 PM EDT [facility] Non HDL Chol. (LDL+VLDL) 205(H) <145 mg/dL LAB CHEMISTRY METHOD 10/07/2024 1:42 PM EDT [facility] Chol/HDL Ratio 6.9(H) 0.0 - 4.4 LAB CHEMISTRY METHOD 10/07/2024 1:42 PM EDT [facility] Blood Venous blood specimen / Unknown Venipuncture / Unknown 10/07/2024 9:14 AM EDT 10/07/2024 9:14 AM EDT us Violetta RODRÍGUEZ LAB BLOOD ORDERABLES Final Result [facility] [address] [place] [address], [place] [phone] * (ABNORMAL) Microalbumin creatinine urine ratio (10/07/2024 9:14 AM EDT) Creatinine, Urine 324.0 mg/dL LAB CHEMISTRY METHOD 10/07/2024 11:57 AM EDT [facility] Microalb, Ur 197.0(H) 0.0 - 29.0 mg/L LAB CHEMISTRY METHOD 10/07/2024 11:57 AM EDT [facility] Microalb/Crea t Ratio 61(H) <30 mg/g creat LAB CHEMISTRY METHOD 10/07/2024 11:57 AM EDT [facility] Urine Urine specimen from urethra / Unknown Non-blood Collection / Unknown 10/07/2024 9:14 AM EDT 10/07/2024 9:14 AM EDT Violetta RODRÍGUEZ LAB URINE ORDERABLES Final Result Performing Organization Address City/[facility]/ZIP Co de Phone Number [facility] [address] [place] [address], [place] [phone] * (ABNORMAL) Hemoglobin A1c (10/07/2024 9:14 AM EDT) Pathologist [facility] Hemoglobin A1C 9.0(H) <6.5 % LAB CHEMISTRY METHOD 10/07/2024 1:08 PM EDT [facility] Mean Bld Glu Estim. 212 mg/dL LAB CHEMISTRY METHOD 10/07/2024 1:08 PM EDT [facility] Blood Venous blood specimen / Unknown Venipuncture / Unknown 10/07/2024 9:14 AM EDT 10/07/2024 9:14 AM EDT us Violetta RODRÍGUEZ LAB BLOOD ORDERABLES Final Result [facility] [address] [place] [address], [place] [phone] * (ABNORMAL) Basic metabolic panel (10/07/2024 9:14 AM EDT) Sodium 140 133 - 145 mmol/L LAB CHEMISTRY METHOD 10/07/2024 1:42 PM [facility] Potassium 4.0 3.5 - 5.5 mmol/L LAB CHEMISTRY METHOD 10/07/2024 1:42 PM [facility] Chloride 107 96 - 110 mmol/L LAB CHEMISTRY METHOD 10/07/2024 1:42 PM [facility] CO2 26 21 - 32 mmol/L LAB CHEMISTRY METHOD 10/07/2024 1:42 PM [facility] Anion Gap 7 3 - 11 LAB CHEMISTRY METHOD 10/07/2024 1:42 PM [facility] Glucose 269(H) 70 - 100 mg/dL LAB CHEMISTRY METHOD 10/07/2024 1:42 PM [facility] BUN 15 5 - 25 mg/dL LAB CHEMISTRY METHOD 10/07/2024 1:42 PM [facility] Creatinine 0.92 0.50 - 1.10 mg/dL LAB CHEMISTRY METHOD 10/07/2024 1:42 PM [facility] eGFR 65 >=60 mL/min/1. 73m2 LAB CHEMISTRY METHOD 10/07/2024 1:42 PM [facility] Comment:Calculation based on the Chronic Kidney Disease Epidemiology Collaboration (CKD-EPI) equation refit without adjustment for race. BUN/Creatinine Ratio 16.3 LAB CHEMISTRY METHOD 10/07/2024 1:42 PM [facility] Calcium 9.1 8.5 - 10.5 mg/dL LAB CHEMISTRY METHOD 10/07/2024 1:42 PM [facility] Blood Venous blood specimen / Unknown Venipuncture / Unknown 10/07/2024 9:14 AM EDT 10/07/2024 9:14 AM EDT us Violetta RODRÍGUEZ LAB BLOOD ORDERABLES Final Result [facility] [place] [facility] [address] [place] [address], from Last 3 Months or Most Recently Relevant to Health Maintenance Insurance [facility] Care Teams Extractor Tender Raw Stock Relationship Specialty Start Date End Date Sharon Arias MD [facility] [address] PCP - General Internal Medicine 09/30/24
--- OUTSIDE RECORDS SUMMARY | 2025-01-13 10:56 | XMS_ITS | Clinical Summary ---
Author Organization [facility] Address [address] [place] [address] Care Team Providers Care Turn Down Worker Name Role Phone Sharon Arias MD Primary Care Provider [phone] Allergies Active Allergy Reactions Criticality Noted Date [...] tablet by mouth once a day. Active [id number] ORAL Take by mouth. Active semaglutide (Ozempic) [...] complete this topic Procedures * Due to [place] law, this organization might not be sharing [...] to Health Maintenance Results * Due to [place] law, this organization might not be sharing negative HIV tests. * (ABNORMAL) Microalbumin/Creatinine Urine, Random (04/14/2023 1:28 PM EST) Creatinine, Urine 184 mg/dL 04/14/2023 7:09 PM EST [facility] Microalbumin, Urine 74(H) <=20 mg/L 04/14/2023 7:09 PM EST [facility] Microalb/Creat Ratio, Random Urine 40.2(H) 1.3 - 30.0 mg/g 04/14/2023 7:09 PM EST [facility] Comment:Not Performed Urine Urine specimen collection, clean catch / Unknown Non-Blood Collection / Unknown 04/14/2023 1:28 PM EST 04/14/2023 1:33 PM EST us Isael Sanabria MD LAB URINE ORDERABLES Nathaly l Result [facility] [address] [facility] [address] [place] [address], [place] [phone] * (ABNORMAL) Comprehensive Metabolic Panel (04/14/2023 1:28 PM EST) NA 140 136 - 145 mmol/L 04/14/2023 6:56 PM EST [facility] K 4.1 3.5 - 5.1 mmol/L 04/14/2023 6:56 PM EST [facility] Cl 107 98 - 109 mmol/L 04/14/2023 6:56 PM EST [facility] CO2 27 23 - 32 mmol/L 04/14/2023 6:56 PM EST [facility] Anion Gap 10 >=0 04/14/2023 6:56 PM EST [facility] Glucose 192(H) 60 - 99 mg/dL 04/14/2023 6:56 PM EST [facility] Creatinine 0.77 0.50 - 1.12 mg/dL 04/14/2023 6:56 PM EST [facility] Calcium 9.3 8.4 - 10.4 mg/dL 04/14/2023 6:56 PM EST [facility] Total Protein 7.3 6.6 - 8.7 g/dL 04/14/2023 6:56 PM EST [facility] Albumin 4.2 3.5 - 5.0 g/dL 04/14/2023 6:56 PM EST [facility] Bilirubin, Total 0.3 0.2 - 1.2 mg/dL 04/14/2023 6:56 PM EST [facility] Alkaline Phosphatase 83 40 - 129 U/L 04/14/2023 6:56 PM EST [facility] AST 19 0 - 33 U/L 04/14/2023 6:56 PM EST [facility] ALT 16 <=33 U/L 04/14/2023 6:56 PM EST [facility] BUN 15 8 - 23 mg/dL 04/14/2023 6:56 PM EST [facility] eGFR 82 >=60 mL/min/1. 73m2 04/14/2023 6:56 PM EST [facility] Comment:The estimated glomer ular filtration rate [...] - 4.2 g/dL 04/14/2023 6:56 PM EST [facility] A/G Ratio 1.4(L) 1.5 - 3.0 04/14/2023 6:56 PM EST [facility] Blood Structure of peripheral vein / Unknown Venipuncture / Unknown 04/14/2023 1:28 PM EST 04/14/2023 1:33 PM EST Isael Sanabria MD LAB BLOOD ORDERABLES Nathaly l Result [facility] [address] [place] [address], * POCT Glycosylated Hemoglobin (HGB A1C) (04/10/2023 3:22 PM EST) Blood Structure of peripheral vein / Unknown 04/10/2023 3:22 PM EST Impressions [facility] - 04/10/2023 3:22 PM EST 8.6 Isael Sanabria MD NURSING POC ORDERABLES - DEVICE Final Result [facility] from Last 3 Months or Most Recently Relevant to Health Maintenance Insurance [facility] Care Teams Turn Down Worker Relationship Specialty Start Date End Date Sharon Arias MD [address] [place], [place] [id number] PCP - General Internal Medicine 12/06/22
--- OUTSIDE RECORDS SUMMARY | 2025-01-13 10:56 | XMS_ITS | Patient Health Record ---
Author Organization [facility] Address [address] [place] [address] Care Team Providers Care It Security Administrator Name Role Phone Valencia Ariasberly Primary Care Provider UnavailFreddie Dunham Unavailable [phone] Allergies Allergen (clinical drug ingredient) Drug/Non Drug [...] Problem Acquired hammer toe of right foot (7903117479497398 ) Other hammer toe(s) (acquired), right foot (M20.41) Active confirmed Problem Acquired hammer toe of left foot ([id number] ) Other hammer toe(s) (acquired), left foot (M20.42) Active confirmed Problem Polyneuropathy due to type 2 diabetes mellitus (607163516) Type 2 diabetes mellitus with diabetic polyneuropathy (E11.42) Active confirmed Plan Of Treatment Pending Test Test Name Order Date 72580-ZROGSAH NAIL, 6 OR MORE 11/05/2010 49484-BDASEXD NAIL, 6 OR MORE 12/07/2010 16938-BWXEASM NAIL, 6 OR MORE 01/25/2011 46621-OFBKLAN NAIL, 6 OR MORE 04/12/2011 80569-MMNAWUZ NAIL, 6 OR MORE 05/17/2011 04669-SXMJGXD NAIL, 6 OR MORE 06/21/2011 87914-SMPRHBS NAIL, 6 OR MORE 07/26/2011 41129-DJKCVQA NAIL, 6 OR MORE 08/30/2011 44215-WMVATHK NAIL, 6 OR MORE 10/12/2011 15185-AJMSTFO NAIL, 6 OR MORE 11/15/2011 46670-YEWYYHW NAIL, 6 OR MORE 12/20/2011 73931-AUJFRKL NAIL, 6 OR MORE 01/24/2012 10985-PBDVGKB NAIL, 6 OR MORE 02/28/2012 31837-UMMRSMM NAIL, 6 OR MORE 04/03/2012 54901-DGMTLBD NAIL, 6 OR MORE 05/11/2012 00968-PHPRBXD NAIL, 6 OR MORE 06/15/2012 41603-UPGGJIJ NAIL, 6 OR MORE 07/16/2012 08912-RXDYPWP NAIL, 6 OR MORE 08/21/2012 24514-CTWMIMI NAIL, 6 OR MORE 09/18/2012 00501-TACHDTY NAIL, 6 OR MORE 10/23/2012 33048-QAKTQVU NAIL, 6 OR MORE 11/27/2012 01711-JPTBTJM NAIL, 6 OR MORE 01/09/2013 38673-HBUHZBT NAIL, 6 OR MORE 02/15/2013 25820-XSGASUG NAIL, 6 OR MORE 03/19/2013 51269-DNAZUVH NAIL, 6 OR MORE 04/19/2013 10085-MSYQUHX NAIL, 6 OR MORE 06/14/2013 30017-TPOPQLC NAIL, 6 OR MORE 07/16/2013 49580-YKLSUUI NAIL, 6 OR MORE 08/20/2013 44492-VVYDSVB NAIL, 6 OR MORE 09/27/2013 26843-KHDTOUZ NAIL, 6 OR MORE 10/29/2013 91170-QYBNIVQ NAIL, 6 OR MORE 11/29/2013 11020-MIGKPFC NAIL, 6 OR MORE 12/24/2013 85860-VQYKULT NAIL, 6 OR MORE 01/31/2014 49000-YZKGVQK NAIL, 6 OR MORE 02/28/2014 32012-UQECDEV NAIL, 6 OR MORE 04/15/2014 56595-MTAPAPX NAIL, 6 OR MORE 05/13/2014 82355-NYIOESR NAIL, 6 OR MORE 06/17/2014 24528-HCLEVSC NAIL, 6 OR MORE 07/22/2014 45281-JETBNBQ NAIL, 6 OR MORE 08/26/2014 90976-FRRWMJE NAIL, 6 OR MORE 01/23/2015 62394-JLITFMN NAIL, 6 OR MORE 04/06/2015 66324-HVZJMAH NAIL, 6 OR MORE 07/29/2015 18291-MYMMAMY NAIL, 6 OR MORE 09/04/2015 31579-XVTUQES NAIL, 6 OR MORE 10/02/2015 23317-JHULRLX NAIL, 6 OR MORE 11/06/2015 31791-SYAWRWO NAIL, 6 OR MORE 12/08/2015 72131-UPVBAMC NAIL, 6 OR MORE 01/15/2016 64254-LWNQGEJ NAIL, 6 OR MORE 02/12/2016 61237-TXOZTDW NAIL, 6 OR MORE 03/15/2016 65006-JPZFIDN NAIL, 6 OR MORE 04/19/2016 61365-DCLRHZD NAIL, 6 OR MORE 07/05/2016 57860-UHYFARC NAIL, 6 OR MORE 08/09/2016 97843-YCPJZOM NAIL, 6 OR MORE 09/06/2016 07854-DCMHECS NAIL, 6 OR MORE 10/04/2016 10692-GZXYPYN NAIL, 6 OR MORE 11/08/2016 99956-YKXEZDV NAIL, 6 OR MORE 12/13/2016 24363-JGUAKVG NAIL, 6 OR MORE 01/20/2017 46314-KYCPMID NAIL, 6 OR MORE 04/25/2017 12929-CUVBMSB NAIL, 6 OR MORE 06/30/2017 28289-RURUGVW NAIL, 6 OR MORE 08/01/2017 36888-AZCHEXO NAIL, 6 OR MORE 09/05/2017 96724-XWFPUGT NAIL, 6 OR MORE 02/13/2018 41402-GWEMISP NAIL, 6 OR MORE 05/01/2018 88231-VRIORMI NAIL, 6 OR MORE 07/06/2018 29805-SSPOMIQ NAIL, 6 OR MORE 09/11/2018 36822-YMXERYZ NAIL, 6 OR MORE 02/01/2019 59477-QOFDOIA NAIL, 6 OR MORE 04/23/2019 17716-JRAHRGO NAIL, 6 OR MORE 07/02/2019 37386-DDKVBNR NAIL, 6 OR MORE 09/10/2019 89094-TOILTQE NAIL, 6 OR MORE 11/12/2019 83157-RGIBNGR NAIL, 6 OR MORE 01/21/2020 97807-XYXNENW NAIL, 6 OR MORE 04/24/2020 64001-QPWWKJY NAIL, 6 OR MORE 06/26/2020 46241-IEPWEEJ NAIL, 6 OR MORE 09/01/2020 14023-DZTSMNW NAIL, 6 OR MORE 11/27/2020 09271-VVCBVOL NAIL, 6 OR MORE 03/25/2021 65622-COQSCLD NAIL, 6 OR MORE 06/08/2021 79272-AFDWNUG NAIL, 6 OR MORE 08/24/2021 53577-FSECEMW NAIL, 6 OR MORE 11/09/2021 09079-Aytlnviw Plate 05/10/2013 84382-Qvnllviy Plate 09/26/2014 65481-Urxehiok Plate 04/12/2011 06888-IXBI SKIN LESIONS, OVER 4 05/17/19 12 98540-PDOG SKIN LESIONS, OVER 4 08/30/19 12 64204-INFI SKIN LESIONS, OVER 4 06/21/19 12 72917-WFSQ SKIN LESIONS, OVER 4 07/26/19 12 24522-MPZW SKIN LESIONS, OVER 4 04/12/19 12 25210-CNFX SKIN LESIONS, OVER 4 03/01/20 11 20917-BCLP SKIN LESIONS, OVER 4 12/08/19 11 41864-XEEN SKIN LESIONS, OVER 4 01/26/20 11 71267-BEKW SKIN LESIONS, OVER 4 11/06/19 11 77105-EHQN SKIN LESIONS, OVER 4 06/16/19 13 93474-CSQA SKIN LESIONS, OVER 4 05/12/19 13 37017-SYNH SKIN LESIONS, OVER 4 04/03/19 13 53514-KZKS SKIN LESIONS, OVER 4 02/28/20 12 65835-EZZJ SKIN LESIONS, OVER 4 01/24/20 12 53217-UPMU SKIN LESIONS, OVER 4 12/20/19 12 27499-QJEM SKIN LESIONS, OVER 4 11/15/19 12 17071-MGDJ SKIN LESIONS, OVER 4 10/12/19 12 74643-ESSD SKIN LESIONS, OVER 4 02/01/20 14 52563-NRMH SKIN LESIONS, OVER 4 12/25/19 14 91428-GQUG SKIN LESIONS, OVER 4 11/30/19 14 22442-UVSQ SKIN LESIONS, OVER 4 10/30/19 14 29158-GRYD SKIN LESIONS, OVER 4 09/28/19 14 51018-WDGZ SKIN LESIONS, OVER 4 07/17/19 14 17262-GBPJ SKIN LESIONS, OVER 4 08/21/19 14 68605-UTZC SKIN LESIONS, OVER 4 06/15/19 14 53500-SZLO SKIN LESIONS, OVER 4 04/19/19 14 23503-NJNF SKIN LESIONS, OVER 4 03/19/19 14 62114-KOZG SKIN LESIONS, OVER 4 02/16/20 13 27810-IUAN SKIN LESIONS, OVER 4 01/10/20 13 33687-ZXLK SKIN LESIONS, OVER 4 11/28/19 13 74554-NFPQ SKIN LESIONS, OVER 4 10/24/19 13 57038-BINJ SKIN LESIONS, OVER 4 09/19/19 13 78551-UIND SKIN LESIONS, OVER 4 08/22/19 13 35568-LBVN SKIN LESIONS, OVER 4 07/17/19 13 19723-OTDW SKIN LESIONS, OVER 4 01/24/20 15 75875-ZVTC SKIN LESIONS, OVER 4 08/27/19 15 59072-AJRO SKIN LESIONS, OVER 4 07/23/19 15 35094-DXPZ SKIN LESIONS, OVER 4 06/18/19 15 54791-KXVO SKIN LESIONS, OVER 4 05/14/19 15 97546-MTBP SKIN LESIONS, OVER 4 04/15/19 15 23958-RXJC SKIN LESIONS, OVER 4 02/29/20 14 34001-VAWH SKIN LESIONS, OVER 4 02/12/20 16 20452-AVTM SKIN LESIONS, OVER 4 01/15/20 16 35552-VOUA SKIN LESIONS, OVER 4 12/08/19 16 65536-YQIU SKIN LESIONS, OVER 4 11/06/19 16 22165-IHCS SKIN LESIONS, OVER 4 10/02/19 16 55340-SNYO SKIN LESIONS, OVER 4 09/04/19 16 54055-WRMX SKIN LESIONS, OVER 4 07/29/19 16 50799-WXWC SKIN LESIONS, OVER 4 04/06/19 16 90859-CIWG SKIN LESIONS, OVER 4 09/12/19 19 65822-GFIY SKIN LESIONS, OVER 4 07/07/19 19 32612-CUKJ SKIN LESIONS, OVER 4 05/01/19 19 08137-YZVT SKIN LESIONS, OVER 4 02/14/20 18 02563-SGCI SKIN LESIONS, OVER 4 09/06/19 18 54963-RQQK SKIN LESIONS, OVER 4 08/02/19 18 80238-YVKH SKIN LESIONS, OVER 4 07/01/19 18 20063-ARIA SKIN LESIONS, OVER 4 04/25/19 18 88080-WTEZ SKIN LESIONS, OVER 4 01/21/20 17 10761-GQLZ SKIN LESIONS, OVER 4 12/14/19 17 24601-UPEL SKIN LESIONS, OVER 4 11/09/19 17 49200-YXVW SKIN LESIONS, OVER 4 10/05/19 17 90455-NILW SKIN LESIONS, OVER 4 09/07/19 17 28988-EDFM SKIN LESIONS, OVER 4 07/06/19 17 45958-JSGE SKIN LESIONS, OVER 4 08/10/19 17 38640-LKDP SKIN LESIONS, OVER 4 04/19/19 17 82781-JRSB SKIN LESIONS, OVER 4 03/15/19 17 87820-QLCI SKIN LESIONS, OVER 4 11/10/19 22 39626-KQFW SKIN LESIONS, OVER 4 08/25/19 22 76806-ZUJL SKIN LESIONS, OVER 4 06/09/19 22 81809-RRVF SKIN LESIONS, OVER 4 03/25/19 22 44948-QYBC SKIN LESIONS, OVER 4 11/28/19 21 13949-WHUS SKIN LESIONS, OVER 4 09/02/19 21 88032-QAYO SKIN LESIONS, OVER 4 06/27/19 21 52311-JOYY SKIN LESIONS, OVER 4 04/24/19 42436-VCUE SKIN LESIONS, OVER 4 01/21/20 20 20609-IKEQ SKIN LESIONS, OVER 4 11/12/19 20 86847-XFUO SKIN LESIONS, OVER 4 09/10/19 20 15623-NRCI SKIN LESIONS, OVER 4 07/02/19 20 11312-TEOP SKIN LESIONS, OVER 4 04/23/19 20 97478-JTRM SKIN LESIONS, OVER 4 02/02/20 19 I9741-WZAZJSJK DYSTROPHIC NAILS ANY # Insurance Providers Payer Name Payer Address Payer Phone Subscriber Number Group Number Insured Name Patient Relationship to Insured Coverage Start Date Coverage End Date [employer] [address] [place] [address] [id number] Nilam Mahajan Self - patient is the insured 6 Medical (General) History Medical History History ICD Code cancer, breast sjogren syndrome mumps measles hypertension chicken pox hyperlipidemia Arthritis type II diabetes Surgical History Surgery Date(Month/Year) section 1977 cholecystectomy 2008 lumpectomy 2005 breast biopsy 2011 colonoscopy 01/07/2020 Tooth extraction- very infected tooth 06/19/2020 Hospitalization History Reason Date(Month/Year) [facility] - concussion 09/2011 [facility] ER, UTI, staph infection, kidne y stones, case of dementia 09/12/2013 PCP - UTI antiboitic taken 7 days 2021
--- OUTSIDE RECORDS SUMMARY | 2025-01-13 10:56 | XMS_ITS | Patient Health Record ---
Author Organization [facility] Address [address] [facility] [address] [place] [address] Care Team Providers Care Institution Librarian Name Role Phone MARIO MOREIRA Primary Care Provider Sho Bergman Unavailable [phone] Allergies Allergen (clinical drug ingredient) Drug/Non Drug Allergy documented on EMR Reaction Allergy Type Onset Date Status tape (uncoded) Unknown Allergy Activ e Reason For Referral No Information Medications Medication SIG (Take, Route, Fr equency, Duration) Notes Start Date End Date Status Gemfibrozil 600MG 1 ORAL twice daily; Duration: -3 [facility] 11/21/2011 Active valACYclovir HCl 1 GM 2 tablets Orally t wice a day for one day at earliest sign of cold sore; Duration: 1 days 04/27/2016 Active Mupirocin 2 % 1 application to aff ected area Externally Three times a day; Duration: 7 days 04/22/2015 Active Vitamin D3 1000 IU ORAL daily; Duration: -3 [facility] 2011 Active Glimepiride 1 MG Orally Act lillie Lisinopril 2.5MG 1 ORAL daily; Duration: -3 [facility] 2011 Active metFORMIN HCl 500MG 1 ORAL Twice a day [facility] 11/21/2011 Active Problems Problem Type SNOMED Code ICD Code Onset Dates Problem Status W/U Status Risk Notes Problem Type II diabetes mellitus without complication (932076468) Diabetes mellitus without mention of complication, type II or unspecified type, not stated as uncontrolled (250.00) Active confirmed Problem Obesity (899381050) Obesity, uns pecified (278.00) Active confirmed Problem Breast cancer (241664274) BREAST CANCER (174.8) Active confirmed Problem Essential hypertension (67661795) Essential (primary) hypertension (I10) Active confirmed Problem Pure hypercholesterolemia (520524191) Pure hypercholesterolemia (E78.0) Active confirmed Plan Of Treatment Pending Test Test Name Order Date PAP SMEAR 04/24/2014 MAMMOGRAM, SCREENING 04/24/2014 Bone Density 04/24/2014 THIN PREP,HPV,STEVE IF HPV+ (>29YR)(SCRN) 04/28/2017 MM Digital Mammo Screening 04/22/2015 Insurance Providers Payer Name Payer Address Payer Phone Subscriber Number Group Number Insured Name Patient Relationship to Insured Coverage Start Date Coverage End Date [employer] [address] [place] [address] [id number] TOVA NOEL Self - patient is the insured Medical (General) History Medical History History ICD Code Diabetes mellitus without me ntion of complication, type II or unspecified type, not stated as uncontrolled BREAST CANCER Obesity, unspecified Surgical History Surgery Date(Month/Year) left Breast lumpectomy, s/p RT and femar a x 2y 2005
[2025-01-13 11:23] LABS: Alanine Aminotransferase 19 U/L (0-31); Albumin Level 4.0 g/dL (3.5-5.0); Alkaline Phosphatase 90 U/L (39-117); Anion Gap 9 (12-20); Aspartate Amino Transferase 17 U/L (5-31); Blood Urea Nitrogen 12 mg/dL (9-16); Calcium 8.6 mg/dL (8.4-10.2); Carbon Dioxide 28 mmol/L (22-29); Chloride 109 mmol/L (96-108); Cholesterol 267 mg/dL (<200); Estimated Glomerular Filt Rate > 60; HDL Cholesterol 35 mg/dL (>40); Iron 84 mcg/dL (30-160); Percent Iron Saturation 31 % (15-50); Potassium 3.9 mmol/L (3.3-5.1); Sodium 142 mmol/L (135-145); Total Iron Binding Capacity 273 mcg/dL (228-428); Total Protein 6.6 g/dL (6.5-8.0); Triglycerides 188 mg/dL (<150); Unsaturated Iron Binding 189 ug/dL
[2025-01-13 11:38] LABS: Ferritin 103 ng/mL (10-250)
[2025-01-13 11:52] LABS: Folate 8.0 ng/mL (> or = 4.0); Vitamin B12 299 pg/mL (200-900)
[2025-01-13 13:40] LABS: Microalbum/Creatinine Ratio Ur 89.0 ug/mg cr (<30)
== END 2025-01-13 09:34 | disposition home or self-care (01) ==
LOC: HO.HMGCLDS 09:33
PROVIDERS: PCP Internal Medicine; Visit Provider Internal Medicine
DX: I10 Essential (primary) hypertension (principal); I25.10 Atherosclerotic heart disease of native coronary artery without angina pectoris; E78.5 Hyperlipidemia, unspecified; E11.69 Type 2 diabetes mellitus with other specified complication; D64.9 Anemia, unspecified; E55.9 Vitamin D deficiency, unspecified; R41.82 Altered mental status, unspecified; E66.9 Obesity, unspecified
CPT/HCPCS: 36415; 80053; 80061; 82043; 82306; 82570; 82607; 82728; 82746; 83036; 83540; 84443; 85025

== ENCOUNTER 2025-01-28 09:58 | Outpatient (REF) | payer MEDICARE, SELFPAY ==
--- NOTE | ~2025-01-28 | CT_ITS ---
EXAMINATION: CT HEAD WITHOUT CONTRAST CLINICAL INFORMATION: R41.82 - Altered mental status, unspecified COMPARISON: None available. TECHNIQUE: Contiguous axial imaging was performed from the skull base to vertex without intravenous administration of contrast. This CT examination was performed using dose optimization techniques as appropriate, variously including the following: *Automated exposure control *Adjustment of mA and/or kV according to patient size (this includes techniques or standardized protocols for targeted exams where dose is matched to indication/reason for exam; i.e. extremities or head) *Use of iterative reconstruction technique DLP: 864 mGy-cm FINDINGS: No acute intracranial hemorrhage, mass effect, midline shift, hydrocephalus or herniation. Sandoval-white matter differentiation is normal. Posterior cranial fossa contents demonstrated no acute hemorrhage or mass effect. Normal position of the cerebellar tonsils. Sellar/suprasellar region demonstrated no gross abnormality. Bilateral multifocal patchy deep periventricular white matter hypodensity. Old lacunar infarct, basal ganglia and hernandez radiata white matter. No increased density in the MCA. Calcified plaques in the cavernous supracavernous segments both ICAs. No acute fracture in the bony calvarium. No air-fluid levels in the paranasal sinuses. Tympanic cavities and mastoid air cells are aerated. CT/CT head/brain wo IV con IMPRESSION: No acute intracranial hemorrhage. Small vessel occlusive disease. Atherosclerosis disease, intracranial. Electronically signed by: Yonny Velazquez MD 01/28/2025 10:23 AM EST
== END 2025-01-28 09:59 | disposition home or self-care (01) ==
LOC: HO.CT 09:58
PROVIDERS: PCP Internal Medicine; Visit Provider Internal Medicine
DX: R41.82 Altered mental status, unspecified (principal)
CPT/HCPCS: 70450

== ENCOUNTER → 2025-01-28 10:02 | Outpatient (BNV) | payer MEDICARE, SELFPAY | PROVIDERS: PCP Internal Medicine; Visit Provider Radiology Diagnostic Radiology | DX: R41.82 Altered mental status, unspecified (principal); I67.2 Cerebral atherosclerosis; I67.82 Cerebral ischemia | CPT/HCPCS: 70450 ==

== ENCOUNTER 2025-02-23 19:51 | Outpatient (REF) | payer MEDICARE, SELFPAY ==
--- NOTE | ~2025-02-23 | MR_ITS ---
CLINICAL HISTORY: I63.81 - Other cerebral infarction due to occlusion or stenosis of small... --- Additional Notes or Special Instructions: R O STROKE Exam: Nonenhanced MRI brain. Comparison: None. Findings: There is no cerebral edema or mass effect. White matter signal intensities are maintained. Diffusion weighted imaging reveals no restricted diffusion or MR evidence of acute ischemia. Susceptibility weighted imaging reveals no susceptibility artifact or evidence of intracranial hemorrhage. No sellar or parasellar lesions. Ventricular size and configuration are within normal limits. Cerebral cisterns are preserved. No significant signal abnormality seen within the paranasal sinuses or mastoid air cells. Preserved flow signal voids are present within visualized intracranial vasculature. Impression: 1. No acute intracranial abnormalities. This document has been electronically signed by: Irwin Vu MD on 02/23/2025 20:57:18
--- OUTSIDE RECORDS SUMMARY | 2025-02-23 19:55 | XMS_ITS | Clinical Summary ---
Author Organization [facility] Address [address] [place] [address] Care Team Providers Care Bobtailer Name Role Phone Sharon Arias MD Primary Care Provider [phone] Allergies Active Allergy Reactions Criticality Noted Date [...] tablet by mouth once a day. Active [id number] ORAL Take by mouth. Active semaglutide (Ozempic) [...] 02/06/2000 Zoster Vaccines (1 of 2) 02/06/2000 Hemoglobin A1C 10/09/2023 04/10/2023 Alcohol/Substance Use Screening 03/13/2024 Depression Screening and Follow-Up 03/13/2024 Fall Risk Screening 03/13/2024 Health Care Proxy Review 03/13/2024 Social Drivers of Health Annual Screening 03/13/2024 Basic Metabolic Panel 04/14/2024 04/14/2023 Urine Microalbumin 04/14/2024 04/14/2023 Influenza Vaccine (#1) 2024 0, 11/28/2019, 01/04/2019, Additional history exists COVID-19 Vaccine ( - 2024- season) 2024 RSV Vaccine (60+ years old and patients) (1 - 1-dose 75+ series) 2025 Pneumococcal Vaccine: 50+ Years Completed 12/31/2021, 01/25/2018 Hepatitis B Vaccines Aged Out No long er eligible based on patient's age to complete this topic Procedures * Due to [place] [employer] law, this organization might not be sharing [...] to Health Maintenance Results * Due to [place] [employer] law, this organization might not be sharing negative HIV tests. * (ABNORMAL) Microalbumin/Creatinine Urine, Random (04/14/2023 1:28 PM EST) Creatinine, Urine 184 mg/dL 04/14/2023 7:09 PM EST [facility] Microalbumin, Urine 74(H) <=20 mg/L 04/14/2023 7:09 PM EST [facility] Microalb/Creat Ratio, Random Urine 40.2(H) 1.3 - 30.0 mg/g 04/14/2023 7:09 PM EST [facility] Comment:Not Performed Urine Urine specimen collection, clean catch / Unknown Non-Blood Collection / Unknown 04/14/2023 1:28 PM EST 04/14/2023 1:33 PM EST us Isael Sanabria MD LAB URINE ORDERABLES Nathaly michael Result [facility] [address] [facility] [address] [place] [address], [place] [phone] * (ABNORMAL) Comprehensive Metabolic Panel (04/14/2023 1:28 PM EST) NA 140 136 - 145 mmol/L 04/14/2023 6:56 PM EST [facility] K 4.1 3.5 - 5.1 mmol/L 04/14/2023 6:56 PM EST [facility] Cl 107 98 - 109 mmol/L 04/14/2023 6:56 PM EST [facility] CO2 27 23 - 32 mmol/L 04/14/2023 6:56 PM EST [facility] Anion Gap 10 >=0 04/14/2023 6:56 PM EST [facility] Glucose 192(H) 60 - 99 mg/dL 04/14/2023 6:56 PM EST [facility] Creatinine 0.77 0.50 - 1.12 mg/dL 04/14/2023 6:56 PM EST [facility] Calcium 9.3 8.4 - 10.4 mg/dL 04/14/2023 6:56 PM EST [facility] Total Protein 7.3 6.6 - 8.7 g/dL 04/14/2023 6:56 PM EST [facility] Albumin 4.2 3.5 - 5.0 g/dL 04/14/2023 6:56 PM EST [facility] Bilirubin, Total 0.3 0.2 - 1.2 mg/dL 04/14/2023 6:56 PM EST [facility] Alkaline Phosphatase 83 40 - 129 U/L 04/14/2023 6:56 PM EST [facility] AST 19 0 - 33 U/L 04/14/2023 6:56 PM EST [facility] ALT 16 <=33 U/L 04/14/2023 6:56 PM EST [facility] BUN 15 8 - 23 mg/dL 04/14/2023 6:56 PM EST [facility] eGFR 82 >=60 mL/min/1. 73m2 04/14/2023 6:56 PM EST [facility] Comment:The estimated glomer ular filtration [...] - 4.2 g/dL 04/14/2023 6:56 PM EST [facility] A/G Ratio 1.4(L) 1.5 - 3.0 04/14/2023 6:56 PM EST [facility] Blood Structure of peripheral vein / Unknown Venipuncture / Unknown 04/14/2023 1:28 PM EST 04/14/2023 1:33 PM EST Isael Sanabria MD LAB BLOOD ORDERABLES Nathaly l Result [facility] [address] [place] [id number], * POCT Glycosylated Hemoglobin (HGB A1C) (04/10/2023 3:22 PM EST) Blood Structure of peripheral vein / Unknown 04/10/2023 3:22 PM EST Impressions [facility] - 04/10/2023 3:22 PM EST 8.6 us Isael Sanabria MD NURSING POC ORDERABLES - DEVICE Final Result [facility] from Last 3 Months or Most Recently Relevant to Health Maintenance Insurance [facility] Care Teams Bobtailer Relationship Specialty Start Date End Date Sharon Arias MD [facility] [place], [place] [id number] PCP - General Internal Medicine 12/06/22
--- OUTSIDE RECORDS SUMMARY | 2025-02-23 19:55 | XMS_ITS | Clinical Summary ---
Author Organization [facility] [address] [place] [address] [address] [facility] [place] [address] Phone Care Team Providers Care Straightedge Machine Operator Helper Name Role Phone Sharon Arias MD Primary Care Provider [phone] Allergies Active Allergy Reactions Criticality Noted Date Comments Adhesive Other 09/30/2024 Skin irritation/ burning Gabapentin Hallucinations 04/10/2023 Nifedipine Weight Gain 09/30/2024 Acxmgkq-Vpq-Msg Reductase Inhibitors Unknown 09/30/2024 PT doesn't recall [...] (one) time each day. PRN 7 Active cholecalciferol (VITAMIN D-3) 50 mcg (2,000 unit) [...] times daily as directed 100 each 11 Active Lantus Solostar U-100 Insulin 100 unit/mL (3 mL) injection pen Inject 70 Units under the skin 1 (one) time each day in the morning. 15 mL 11 Active insulin lispro (HumaLOG KwikPen Insulin) 100 unit/mL injection pen INJECT 3 TIMES A DAY WITH MEALS PER SLIDING SCALE: 100-150: 10 UNITS 151-200: 11 UNITS 201-250: 12 UNITS 251-300: 13 UNITS 301-350: 14 UNITS 351-400: 15 UNITS CALL OFFICE IF BS 400. Max daily dose 50 units 45 mL 11 Active Active Problems Problem Noted Date Diagnosed Date Type 2 diabetes mellitus without complications 1 Essential hypertension 09/30/2024 Malignant neoplasm of breast 09/30/2024 Obstructive sleep apnea 09/30/2024 Pure hypercholesterolemia 09/30/2024 Supraventricular tachycardia 09/30/2024 Severe obesity 09/30/2024 Benign hypertension 08/01/2024 Coronary artery disease 08/01/2024 Hyperglycemia 08/01/2024 Paroxysmal atrial fibrillation 08/01/2024 Other specified diabetes adali litus with other specified complication 04/10/2023 Encounters Date Type Department Care Team Description 01/09/2025 11:15 AM EDT Office Visit Endocrinology [address] [address] Violetta Martinez PA Type 2 diabetes mellitus without complications, unspecified whether long chain quiller tender insulin use ([facility] V24, [facility] V28) (Primary Dx); Secondary hypertension from Last 3 Months Social History Tobacco Use Types Packs/Day Years Used Date Smoking Tobacco: Never Smokeless Tobacco: Never Tobacco Cessation:Counseling Given: Not Answered Comments No Sex and Gender Information Value Date Recorded Sex Assigned at Not on file Legal Sex Female 5:30 AM EST Gender Identity Not on file Sexual Orientation Not on file Last Filed Vital Signs Vital Sign Reading [...] Care Team (Late st Contact Info) Description 04/11/2025 11:00 AM EST Office Visit Endocrinology - [place] [address] [place] [address] Michelle Matthews MD [address] [place] [address] Health Maintenance Due Date Last Done Comments Colorectal Cancer Screening: Colonoscopy 1950 COVID-19 Vaccine (#1) 1955 Diabetes: Annual Foot Exam 02/06/1960 DTaP,Tdap,and Td Vaccines (1 - Tdap) 1969 Zoster Vaccines (1 of 2) 1969 Depression Screening 03/13/2024 Falls Risk Assessment 08/28/2024 Hepatitis C Screening 08/28/2024 Social Influencers of Health Screening 08/28/2024 Influenza Vaccine (#1) 2024 , 01/04/2019, 12/15/2017, Additional history exists RSV Immunization Adult Patients (1 - 1-dose 75+ series) 2025 Diabetes: Annual Retina Eye Exam 04/09/2025 04/09/2024 [...] Procedure Name Priority Date/Time Associated Diagnosis Comments MICROALBUMIN CREATININE URINE RATIO Routine 10/07/2024 9:14 AM EDT Uncontrolled type 2 diabetes mellitus with hyperglycemia ([facility] V24, [facility] V28) BASIC METABOLIC PANEL Routine 10/07/2024 9:14 AM EDT Uncontrolled type 2 diabetes mellitus with hyperglycemia ([facility] V24, [facility] V28) HEMOGLOBIN A1C Routine 10/07/2024 9:14 AM EDT Uncontrolled type 2 diabetes mellitus with hyperglycemia ([facility] V24, [facility] V28) LIPID PANEL WITH REFLEX TO DIRECT LDL Routine 10/07/2024 9:14 AM EDT Uncontrolled type 2 diabetes mellitus with hyperglycemia ([facility] V24, [facility] V28) from Last 3 Months or Most Recently Relevant to Health Maintenance Results * (ABNORMAL) Lipid panel with reflex to direct LDL (10/07/2024 9:14 AM EDT) [facility] Cholesterol 240(H) 0 - 200 mg/dL LAB CHEMISTRY METHOD 10/07/2024 1:42 PM EDT [facility] Triglycerides 288(H) 0 - 150 mg/dL LAB CHEMISTRY METHOD 10/07/2024 1:42 PM EDT [facility] HDL 35(L) >=40 mg/dL LAB CHEMISTRY METHOD 10/07/2024 1:42 PM EDT [facility] LDL Calculated 147(H) 0 - 100 mg/dL LAB CHEMISTRY METHOD 10/07/2024 1:42 PM EDT [facility] VLDL Cholesterol David 57.6 mg/dL LAB CHEMISTRY METHOD 10/07/2024 1:42 PM EDT [facility] Non HDL Chol. (LDL+VLDL) 205(H) <145 mg/dL LAB CHEMISTRY METHOD 10/07/2024 1:42 PM EDT [facility] Chol/HDL Ratio 6.9(H) 0.0 - 4.4 LAB CHEMISTRY METHOD 10/07/2024 1:42 PM EDT [facility] Blood Venous blood specimen / Unknown Venipuncture / Unknown 10/07/2024 9:14 AM EDT 10/07/2024 9:14 AM EDT us Violetta RODRÍGUEZ LAB BLOOD ORDERABLES Final Result [facility] [address] [place] [address], * (ABNORMAL) Microalbumin creatinine urine ratio (10/07/2024 9:14 AM EDT) Creatinine, Urine 324.0 mg/dL LAB CHEMISTRY METHOD 10/07/2024 11:57 AM EDT [facility] Microalb, Ur 197.0(H) 0.0 - 29.0 mg/L LAB CHEMISTRY METHOD 10/07/2024 11:57 AM EDT [facility] Microalb/Crea t Ratio 61(H) <30 mg/g creat LAB CHEMISTRY METHOD 10/07/2024 11:57 AM EDT [facility] Urine Urine specimen from urethra / Unknown Non-blood Collection / Unknown 10/07/2024 9:14 AM EDT 10/07/2024 9:14 AM EDT Violetta RODRÍGUEZ LAB URINE ORDERABLES Final Result Performing Organization Address [facility] Co de Phone Number [facility] [address] [place] [address], [place] [phone] * (ABNORMAL) Hemoglobin A1c (10/07/2024 9:14 AM EDT) Hemoglobin A1C 9.0(H) <6.5 % LAB CHEMISTRY METHOD 10/07/2024 1:08 PM EDT [facility] Mean Bld Glu Estim. 212 mg/dL LAB CHEMISTRY METHOD 10/07/2024 1:08 PM EDT [facility] Blood Venous blood specimen / Unknown Venipuncture / Unknown 10/07/2024 9:14 AM EDT 10/07/2024 9:14 AM EDT Violetta RODRÍGUEZ LAB BLOOD ORDERABLES Final Result Performing Organization Address [facility]/ZIP Co de Phone Number [facility] [address] [place] [address], [place] [phone] * (ABNORMAL) Basic metabolic panel (10/07/2024 9:14 AM EDT) Sodium 140 133 - 145 mmol/L LAB CHEMISTRY METHOD 10/07/2024 1:42 PM EDT [facility] Potassium 4.0 3.5 - 5.5 mmol/L LAB CHEMISTRY METHOD 10/07/2024 1:42 PM EDT [facility] Chloride 107 96 - 110 mmol/L LAB CHEMISTRY METHOD 10/07/2024 1:42 PM EDT [facility] CO2 26 21 - 32 mmol/L LAB CHEMISTRY METHOD 10/07/2024 1:42 PM EDT [facility] Anion Gap 7 3 - 11 LAB CHEMISTRY METHOD 10/07/2024 1:42 PM [facility] Glucose 269(H) 70 - 100 mg/dL LAB CHEMISTRY METHOD 10/07/2024 1:42 PM EDT [facility] BUN 15 5 - 25 mg/dL LAB CHEMISTRY METHOD 10/07/2024 1:42 PM [facility] Creatinine 0.92 0.50 - 1.10 mg/dL LAB CHEMISTRY METHOD 10/07[facility]24 [facility] eGFR 65 >=60 mL/min/1. 73m2 LAB CHEMISTRY METHOD 10/07/2024 1:42 PM EDT [facility] Comment:Calculation based on the Chronic Kidney Disease Epidemiology Collaboration (CKD-EPI) equation refit without adjustment for race. BUN/Creatinine Ratio 16.3 LAB CHEMISTRY METHOD 10/07/2024 1:42 PM [facility] Calcium 9.1 8.5 - 10.5 mg/dL LAB CHEMISTRY METHOD 10/07/2024 1:42 PM [facility] Blood Venous blood specimen / Unknown Venipuncture / Unknown 10/07/2024 9:14 AM EDT 10/07/2024 9:14 AM EDT us Violetta RODRÍGUEZ LAB BLOOD ORDERABLES Final Result [facility] [address] [place] [address], from Last 3 Months or Most Recently Relevant to Health Maintenance Insurance [facility] Care Teams Straightedge Machine Operator Helper Relationship Specialty Start Date End Date Sharon Arias MD [address] [place] [address] PCP - General Internal Medicine 09/30/24
--- OUTSIDE RECORDS SUMMARY | 2025-02-23 19:55 | XMS_ITS | Patient Health Record ---
Author Organization [facility] Address [address] [facility] [address] [place] [address] Care Team Providers Care Shear Grinder Operator Helper Name Role Phone MARIO MOREIRA Primary Care Provider Sho Bergman Unavailable [phone] Allergies Allergen (clinical drug ingredient) Drug/Non Drug Allergy documented on EMR Reaction Allergy Type Onset Date Status tape (uncoded) Unknown Allergy Activ e Reason For Referral No Information Medications Medication SIG (Take, Route, Fr equency, Duration) Notes Start Date End Date Status Gemfibrozil 600MG 1 ORAL twice daily; Duration: -3 [facility] 11/21/2011 Active valACYclovir HCl 1 GM 2 tablets Orally t wice a day for one day at earliest sign of cold sore; Duration: 1 days 04/27/2016 Active Mupirocin 2 % 1 application to aff ected area Externally Three times a day; Duration: 7 days 04/22/2015 Active Vitamin D3 1000 IU ORAL daily; Duration: -3 [facility] 2011 Active Glimepiride 1 MG Orally Act lillie Lisinopril 2.5MG 1 ORAL daily; Duration: -3 [facility] 2011 Active metFORMIN HCl 500MG 1 ORAL Twice a day [facility] 11/21/2011 Active Problems Problem Type SNOMED Code ICD Code Onset Dates Problem Status W/U Status Risk Notes Problem Type II diabetes mellitus without complication (864376852) Diabetes mellitus without mention of complication, type II or unspecified type, not stated as uncontrolled (250.00) Active confirmed Problem Obesity (907032596) Obesity, uns pecified (278.00) Active confirmed Problem Breast cancer (876245167) BREAST CANCER (174.8) Active confirmed Problem Essential hypertension (26610717) Essential (primary) hypertension (I10) Active confirmed Problem Pure hypercholesterolemia (478948519) Pure hypercholesterolemia (E78.0) Active confirmed Plan Of Treatment Pending Test Test Name Order Date PAP SMEAR 04/24/2014 MAMMOGRAM, SCREENING 04/24/2014 Bone Density 04/24/2014 THIN PREP,HPV,STEVE IF HPV+ (>29YR)(SCRN) 04/28/2017 MM Digital Mammo Screening 04/22/2015 Insurance Providers Payer Name Payer Address Payer Phone Subscriber Number Group Number Insured Name Patient Relationship to Insured Coverage Start Date Coverage End Date [employer] [address] [place] [address] [id number] TOVA NOEL Self - patient is the insured Medical (General) History Medical History History ICD Code Diabetes mellitus without me ntion of complication, type II or unspecified type, not stated as uncontrolled BREAST CANCER Obesity, unspecified Surgical History Surgery Date(Month/Year) left Breast lumpectomy, s/p RT and femar a x 2y 2005
--- OUTSIDE RECORDS SUMMARY | 2025-02-23 19:55 | XMS_ITS | Patient Health Record ---
[facility] Organization [facility] Address [address] [facility] [place] [address] Care Team Providers Care Yarn Texturing Machine Operator Name Role Phone Valencia Ariasberly Primary Care Provider UnavailFreddie Dunham Unavailable [phone] Allergies Allergen (clinical drug ingredient) Drug/Non Drug [...] Problem Acquired hammer toe of right foot (8133350179535287 ) Other hammer toe(s) (acquired), right foot (M20.41) Active confirmed Problem Acquired hammer toe of left foot ([id number] ) Other hammer toe(s) (acquired), left foot (M20.42) Active confirmed Problem Polyneuropathy due to type 2 diabetes mellitus (795973395) Type 2 diabetes mellitus with diabetic polyneuropathy (E11.42) Active confirmed Plan Of Treatment Pending Test Test Name Order Date 23902-ISFCLVY NAIL, 6 OR MORE 11/05/2010 32854-LKXVQNP NAIL, 6 OR MORE 12/07/2010 62989-NYXZYFG NAIL, 6 OR MORE 01/25/2011 61560-KRYOTXG NAIL, 6 OR MORE 04/12/2011 31212-HEKPXHA NAIL, 6 OR MORE 05/17/2011 95674-NBUTJVO NAIL, 6 OR MORE 06/21/2011 71492-YJKRNFK NAIL, 6 OR MORE 07/26/2011 19349-SWPMLMY NAIL, 6 OR MORE 08/30/2011 07067-HICNMDS NAIL, 6 OR MORE 10/12/2011 78747-XLOEKCM NAIL, 6 OR MORE 11/15/2011 28634-RVQOEQV NAIL, 6 OR MORE 12/20/2011 91010-DOQOGBJ NAIL, 6 OR MORE 01/24/2012 69365-GJRTRKV NAIL, 6 OR MORE 02/28/2012 05946-NBKUWFW NAIL, 6 OR MORE 04/03/2012 52747-OTIKEBD NAIL, 6 OR MORE 05/11/2012 00408-VCIIGED NAIL, 6 OR MORE 06/15/2012 01751-MGEVUVI NAIL, 6 OR MORE 07/16/2012 10972-CTAHDPX NAIL, 6 OR MORE 08/21/2012 08508-NYZEXWE NAIL, 6 OR MORE 09/18/2012 97161-LUGCKFL NAIL, 6 OR MORE 10/23/2012 48363-NQCLEHM NAIL, 6 OR MORE 11/27/2012 26616-UNDUOHQ NAIL, 6 OR MORE 01/09/2013 25375-OTQCATR NAIL, 6 OR MORE 02/15/2013 15740-LZGZDYT NAIL, 6 OR MORE 03/19/2013 32975-LRFRIOZ NAIL, 6 OR MORE 04/19/2013 82868-WKNDIQI NAIL, 6 OR MORE 06/14/2013 55251-QGWMUGR NAIL, 6 OR MORE 07/16/2013 57863-FYHWLJS NAIL, 6 OR MORE 08/20/2013 15321-DOCWERL NAIL, 6 OR MORE 09/27/2013 94923-SXJWPVH NAIL, 6 OR MORE 10/29/2013 50402-CCKAOIJ NAIL, 6 OR MORE 11/29/2013 26149-IGTMGRN NAIL, 6 OR MORE 12/24/2013 83879-QSZBNXH NAIL, 6 OR MORE 01/31/2014 32233-SJDNHIY NAIL, 6 OR MORE 02/28/2014 49782-BTRHSYP NAIL, 6 OR MORE 04/15/2014 97863-IYOPBNI NAIL, 6 OR MORE 05/13/2014 38481-EGIXNVJ NAIL, 6 OR MORE 06/17/2014 59091-RXOVKBA NAIL, 6 OR MORE 07/22/2014 00915-NDFHSYS NAIL, 6 OR MORE 08/26/2014 17929-AXIQOXN NAIL, 6 OR MORE 01/23/2015 45852-IIIGESG NAIL, 6 OR MORE 04/06/2015 26193-ORPOKBZ NAIL, 6 OR MORE 07/29/2015 23475-RJLFWSF NAIL, 6 OR MORE 09/04/2015 10856-XLHOQFM NAIL, 6 OR MORE 10/02/2015 42460-TZVPPSF NAIL, 6 OR MORE 11/06/2015 75152-JOGWWPZ NAIL, 6 OR MORE 12/08/2015 04773-VJRRBHP NAIL, 6 OR MORE 01/15/2016 74780-AJOIBSH NAIL, 6 OR MORE 02/12/2016 80951-WTBDDYU NAIL, 6 OR MORE 03/15/2016 23575-EPGJQWX NAIL, 6 OR MORE 04/19/2016 51278-GFYWHOJ NAIL, 6 OR MORE 07/05/2016 42616-EQVQJGE NAIL, 6 OR MORE 08/09/2016 85911-WKMVRPQ NAIL, 6 OR MORE 09/06/2016 73497-CASPVEP NAIL, 6 OR MORE 10/04/2016 56314-FXLYKVI NAIL, 6 OR MORE 11/08/2016 82351-EZNEAWR NAIL, 6 OR MORE 12/13/2016 85062-EJVZCCV NAIL, 6 OR MORE 01/20/2017 20616-KQUVFQW NAIL, 6 OR MORE 04/25/2017 26329-SGFSUNL NAIL, 6 OR MORE 06/30/2017 57178-YNOGHBT NAIL, 6 OR MORE 08/01/2017 07397-IKZAWMB NAIL, 6 OR MORE 09/05/2017 61838-HKTLLEN NAIL, 6 OR MORE 02/13/2018 78777-EZHHHEX NAIL, 6 OR MORE 05/01/2018 36586-NQTCHLM NAIL, 6 OR MORE 07/06/2018 79837-DMVHWMM NAIL, 6 OR MORE 09/11/2018 33921-GQCQXMV NAIL, 6 OR MORE 02/01/2019 17116-HICZCKF NAIL, 6 OR MORE 04/23/2019 49239-OYVCROE NAIL, 6 OR MORE 07/02/2019 45873-CNUGCMX NAIL, 6 OR MORE 09/10/2019 14841-JAPNGFS NAIL, 6 OR MORE 11/12/2019 44012-DSNCBHJ NAIL, 6 OR MORE 01/21/2020 64173-XRRWNZJ NAIL, 6 OR MORE 04/24/2020 45203-GPDRXMW NAIL, 6 OR MORE 06/26/2020 47772-JAVAZFU NAIL, 6 OR MORE 09/01/2020 06761-YIWURGP NAIL, 6 OR MORE 11/27/2020 54122-DDPMLDP NAIL, 6 OR MORE 03/25/2021 08473-FXQCCLS NAIL, 6 OR MORE 06/08/2021 58172-EFJQLVG NAIL, 6 OR MORE 08/24/2021 15310-LDEPYNC NAIL, 6 OR MORE 11/09/2021 49606-Sagmvoff Plate 05/10/2013 27782-Wmagstkp Plate 09/26/2014 06831-Dfbeykil Plate 04/12/2011 55259-DELB SKIN LESIONS, OVER 4 05/17/19 12 18275-LSAC SKIN LESIONS, OVER 4 08/30/19 12 47191-JWOG SKIN LESIONS, OVER 4 06/21/19 12 57324-ZBQA SKIN LESIONS, OVER 4 07/26/19 12 18491-SHGY SKIN LESIONS, OVER 4 04/12/19 12 39526-KEOP SKIN LESIONS, OVER 4 03/01/20 11 78986-RMXF SKIN LESIONS, OVER 4 12/08/19 11 18756-MQWJ SKIN LESIONS, OVER 4 01/26/20 11 39151-KPJS SKIN LESIONS, OVER 4 11/06/19 11 27212-VRUK SKIN LESIONS, OVER 4 06/16/19 13 49148-THFQ SKIN LESIONS, OVER 4 05/12/19 13 75164-DXPY SKIN LESIONS, OVER 4 04/03/19 13 05248-MICO SKIN LESIONS, OVER 4 02/28/20 12 91453-MHJE SKIN LESIONS, OVER 4 01/24/20 12 47142-ASJR SKIN LESIONS, OVER 4 12/20/19 12 28032-PPFV SKIN LESIONS, OVER 4 11/15/19 12 20996-OKJX SKIN LESIONS, OVER 4 10/12/19 12 19529-AFDV SKIN LESIONS, OVER 4 02/01/20 14 35060-PNKY SKIN LESIONS, OVER 4 12/25/19 14 26135-BUKX SKIN LESIONS, OVER 4 11/30/19 14 82768-PKJD SKIN LESIONS, OVER 4 10/30/19 14 02580-NEMJ SKIN LESIONS, OVER 4 09/28/19 14 23249-QSSF SKIN LESIONS, OVER 4 07/17/19 14 73469-LZHA SKIN LESIONS, OVER 4 08/21/19 14 95373-LLKC SKIN LESIONS, OVER 4 06/15/19 14 70352-BJOP SKIN LESIONS, OVER 4 04/19/19 14 31935-PCOR SKIN LESIONS, OVER 4 03/19/19 14 64571-RXBO SKIN LESIONS, OVER 4 02/16/20 13 23422-FVGK SKIN LESIONS, OVER 4 01/10/20 13 80742-WMTU SKIN LESIONS, OVER 4 11/28/19 13 00409-WVOJ SKIN LESIONS, OVER 4 10/24/19 13 56438-SLUP SKIN LESIONS, OVER 4 09/19/19 13 60901-PYGR SKIN LESIONS, OVER 4 08/22/19 13 50984-LGFP SKIN LESIONS, OVER 4 07/17/19 13 10957-HFPB SKIN LESIONS, OVER 4 01/24/20 15 68736-IJUP SKIN LESIONS, OVER 4 08/27/19 15 99345-TFVF SKIN LESIONS, OVER 4 07/23/19 15 71206-GKKC SKIN LESIONS, OVER 4 06/18/19 15 34788-EESX SKIN LESIONS, OVER 4 05/14/19 15 73796-ZVUW SKIN LESIONS, OVER 4 04/15/19 15 66696-TQTJ SKIN LESIONS, OVER 4 02/29/20 14 79585-HNKH SKIN LESIONS, OVER 4 02/12/20 16 02866-KACB SKIN LESIONS, OVER 4 01/15/20 16 33933-WHZG SKIN LESIONS, OVER 4 12/08/19 16 88020-PFBZ SKIN LESIONS, OVER 4 11/06/19 16 02533-ZXIQ SKIN LESIONS, OVER 4 10/02/19 16 09431-LZEP SKIN LESIONS, OVER 4 09/04/19 16 65027-PWMR SKIN LESIONS, OVER 4 07/29/19 16 82726-JIZQ SKIN LESIONS, OVER 4 04/06/19 16 76339-JCKS SKIN LESIONS, OVER 4 09/12/19 19 65836-XVRG SKIN LESIONS, OVER 4 07/07/19 19 89834-LZSG SKIN LESIONS, OVER 4 05/01/19 19 85530-QJLR SKIN LESIONS, OVER 4 02/14/20 18 44819-RHYQ SKIN LESIONS, OVER 4 09/06/19 18 71648-UDAI SKIN LESIONS, OVER 4 08/02/19 18 10732-GFIO SKIN LESIONS, OVER 4 07/01/19 18 78571-UIPC SKIN LESIONS, OVER 4 04/25/19 18 62732-PCOD SKIN LESIONS, OVER 4 01/21/20 17 99039-OLDI SKIN LESIONS, OVER 4 12/14/19 17 41333-TYVA SKIN LESIONS, OVER 4 11/09/19 17 02660-ONQM SKIN LESIONS, OVER 4 10/05/19 17 23224-PHXE SKIN LESIONS, OVER 4 09/07/19 17 87725-KTNA SKIN LESIONS, OVER 4 07/06/19 17 74751-LJMJ SKIN LESIONS, OVER 4 08/10/19 17 78878-VAOT SKIN LESIONS, OVER 4 04/19/19 17 13266-SLKD SKIN LESIONS, OVER 4 03/15/19 17 56758-HCWX SKIN LESIONS, OVER 4 11/10/19 22 95341-ZHZI SKIN LESIONS, OVER 4 08/25/19 22 72741-HTKR SKIN LESIONS, OVER 4 06/09/19 22 11184-DTGQ SKIN LESIONS, OVER 4 03/25/19 22 10793-JOFM SKIN LESIONS, OVER 4 11/28/19 21 34371-LSDM SKIN LESIONS, OVER 4 09/02/19 21 70915-KJQQ SKIN LESIONS, OVER 4 06/27/19 21 29821-PISS SKIN LESIONS, OVER 4 04/24/19 12562-CRQL SKIN LESIONS, OVER 4 01/21/20 20 47618-LVIX SKIN LESIONS, OVER 4 11/12/19 20 30872-ETIR SKIN LESIONS, OVER 4 09/10/19 20 39647-UOGS SKIN LESIONS, OVER 4 07/02/19 20 97138-XUWQ SKIN LESIONS, OVER 4 04/23/19 20 49617-XSHJ SKIN LESIONS, OVER 4 02/02/20 19 K2529-JTJWADZB DYSTROPHIC NAILS ANY # Insurance Providers Payer Name Payer Address Payer Phone Subscriber Number Group Number Insured Name Patient Relationship to Insured Coverage Start Date Coverage End Date [employer] [place] [employer]vantage [address] [place] [address] [id number] Nilam Mahajan Self - patient is the insured 6 Medical (General) History Medical History History ICD Code cancer, breast sjogren syndrome mumps measles hypertension chicken pox hyperlipidemia Arthritis type II diabetes Surgical History Surgery Date(Month/Year) section 1977 cholecystectomy 2008 lumpectomy 2005 breast biopsy 2011 colonoscopy 01/07/2020 Tooth extraction- very infected tooth 06/19/2020 Hospitalization History Reason Date(Month/Year) [facility] - concussion 09/2011 [facility] ER, UTI, staph infection, kidne y stones, case of dementia 09/12/2013 PCP - UTI antiboitic taken 7 days 2021
== END 2025-02-23 19:52 | disposition home or self-care (01) ==
LOC: HO.MRI 19:51
PROVIDERS: PCP Internal Medicine; Visit Provider Internal Medicine
DX: I63.81 Other cerebral infarction due to occlusion or stenosis of small artery (principal); R93.0 Abnormal findings on diagnostic imaging of skull and head, not elsewhere classified
CPT/HCPCS: 70551

== ENCOUNTER → 2025-02-23 19:51 | Outpatient (BNV) | payer MEDICARE, SELFPAY | PROVIDERS: PCP Internal Medicine; Visit Provider Radiology Diagnostic Radiology | DX: I63.81 Other cerebral infarction due to occlusion or stenosis of small artery (principal) | CPT/HCPCS: 70551 ==

== ENCOUNTER 2025-02-26 07:52 | Outpatient (AMB) | payer MEDICARE, SELFPAY ==
--- OUTSIDE RECORDS SUMMARY | 2025-02-26 07:55 | XMS_ITS | Patient Health Record ---
Author Organization [facility] Address [address] [facility] [address] [place] [address] Care Team Providers Care Workers Compensation Examiner Name Role Phone MARIO MOREIRA Primary Care Provider Sho Bergman Unavailable [phone] Allergies Allergen (clinical drug ingredient) Drug/Non Drug Allergy documented on EMR Reaction Allergy Type Onset Date Status tape (uncoded) Unknown Allergy Activ e Reason For Referral No Information Medications Medication SIG (Take, Route, Fr equency, Duration) Notes Start Date End Date Status Gemfibrozil 600MG 1 ORAL twice daily; Duration: -3 [facility] 11/21/2011 Active valACYclovir HCl 1 GM 2 tablets Orally t wice a day for one day at earliest sign of cold sore; Duration: 1 days 04/27/2016 Active Mupirocin 2 % 1 application to aff ected area Externally Three times a day; Duration: 7 days 04/22/2015 Active Vitamin D3 1000 IU ORAL daily; Duration: -3 [facility] 2011 Active Glimepiride 1 MG Orally Act lillie Lisinopril 2.5MG 1 ORAL daily; Duration: -3 [facility] 2011 Active metFORMIN HCl 500MG 1 ORAL Twice a day [facility] 11/21/2011 Active Problems Problem Type SNOMED Code ICD Code Onset Dates Problem Status W/U Status Risk Notes Problem Type II diabetes mellitus without complication (177357405) Diabetes mellitus without mention of complication, type II or unspecified type, not stated as uncontrolled (250.00) Active confirmed Problem Obesity (696160325) Obesity, uns pecified (278.00) Active confirmed Problem Breast cancer (611495757) BREAST CANCER (174.8) Active confirmed Problem Essential hypertension (92572992) Essential (primary) hypertension (I10) Active confirmed Problem Pure hypercholesterolemia (258596578) Pure hypercholesterolemia (E78.0) Active confirmed Plan Of Treatment Pending Test Test Name Order Date PAP SMEAR 04/24/2014 MAMMOGRAM, SCREENING 04/24/2014 Bone Density 04/24/2014 THIN PREP,HPV,STEVE IF HPV+ (>29YR)(SCRN) 04/28/2017 MM Digital Mammo Screening 04/22/2015 Insurance Providers Payer Name Payer Address Payer Phone Subscriber Number Group Number Insured Name Patient Relationship to Insured Coverage Start Date Coverage End Date [employer] [address] [place] [address] [id number] TOVA NOEL Self - patient is the insured Medical (General) History Medical History History ICD Code Diabetes mellitus without me ntion of complication, type II or unspecified type, not stated as uncontrolled BREAST CANCER Obesity, unspecified Surgical History Surgery Date(Month/Year) left Breast lumpectomy, s/p RT and femar a x 2y 2005
--- OUTSIDE RECORDS SUMMARY | 2025-02-26 07:55 | XMS_ITS | Clinical Summary ---
Author Organization [facility] Address [address] [place] [address] Care Team Providers Care Radiology Physician Assistant Name Role Phone Sharon Arias MD Primary Care Provider [phone] Allergies Active Allergy Reactions Criticality Noted Date [...] tablet by mouth once a day. Active [id number]-[id number] ORAL Take by mouth. Active semaglutide (Ozempic) [...] complete this topic Procedures * Due to [employer] law, this organization might not be sharing [...] to Health Maintenance Results * Due to [employer] law, this organization might not be sharing negative HIV tests. * (ABNORMAL) Microalbumin/Creatinine Urine, Random (04/14/2023 1:28 PM EST) Creatinine, Urine 184 mg/dL 04/14/2023 7:09 PM EST [facility] Microalbumin, Urine 74(H) <=20 mg/L 04/14/2023 7:09 PM EST [facility] Microalb/Creat Ratio, Random Urine 40.2(H) 1.3 - 30.0 mg/g 04/14/2023 7:09 PM EST [facility] Comment:Not Performed Urine Urine specimen collection, clean catch / Unknown Non-Blood Collection / Unknown 04/14/2023 1:28 PM EST 04/14/2023 1:33 PM EST us Isael Sanabria MD LAB URINE ORDERABLES Nathaly michael Result [facility] [address] [facility] [address] [place] [address], [place] [phone] * (ABNORMAL) Comprehensive Metabolic Panel (04/14/2023 1:28 PM EST) NA 140 136 - 145 mmol/L 04/14/2023 6:56 PM EST [facility] K 4.1 3.5 - 5.1 mmol/L 04/14/2023 6:56 PM EST [facility] Cl 107 98 - 109 mmol/L 04/14/2023 6:56 PM EST [facility] CO2 27 23 - 32 mmol/L 04/14/2023 6:56 PM EST [facility] Anion Gap 10 >=0 04/14/2023 6:56 PM EST [facility] Glucose 192(H) 60 - 99 mg/dL 04/14/2023 6:56 PM EST [facility] Creatinine 0.77 0.50 - 1.12 mg/dL 04/14/2023 6:56 PM EST [facility] Calcium 9.3 8.4 - 10.4 mg/dL 04/14/2023 6:56 PM EST [facility] Total Protein 7.3 6.6 - 8.7 g/dL 04/14/2023 6:56 PM EST [facility] Albumin 4.2 3.5 - 5.0 g/dL 04/14/2023 6:56 PM EST [facility] Bilirubin, Total 0.3 0.2 - 1.2 mg/dL 04/14/2023 6:56 PM EST [facility] Alkaline Phosphatase 83 40 - 129 U/L 04/14/2023 6:56 PM EST [facility] AST 19 0 - 33 U/L 04/14/2023 6:56 PM EST [facility] ALT 16 <=33 U/L 04/14/2023 6:56 PM EST [facility] BUN 15 8 - 23 mg/dL 04/14/2023 6:56 PM EST [facility] eGFR 82 >=60 mL/min/1. 73m2 04/14/2023 6:56 PM EST [facility] Comment:The estimated glomer ular filtration [...] - 4.2 g/dL 04/14/2023 6:56 PM EST [facility] A/G Ratio 1.4(L) 1.5 - 3.0 04/14/2023 6:56 PM EST [facility] Blood Structure of peripheral vein / Unknown Venipuncture / Unknown 04/14/2023 1:28 PM EST 04/14/2023 1:33 PM EST Isael Sanabria MD LAB BLOOD ORDERABLES Nathaly l Result [facility] [address] [place] [address], * POCT Glycosylated Hemoglobin (HGB A1C) (04/10/2023 3:22 PM EST) Blood Structure of peripheral vein / Unknown 04/10/2023 3:22 PM EST Impressions [facility] - 04/10/2023 3:22 PM EST 8.6 us Isael Sanabria MD NURSING POC ORDERABLES - DEVICE Final Result [facility] from Last 3 Months or Most Recently Relevant to Health Maintenance Insurance [facility] Care Teams Radiology Physician Assistant Relationship Specialty Start Date End Date Sharon Arias MD [facility] [place], [place] [id number] PCP - General Internal Medicine 12/06/22
--- OUTSIDE RECORDS SUMMARY | 2025-02-26 07:55 | XMS_ITS | Clinical Summary ---
Author Organization [facility] [address] [place] [address] Address [address] [facility] [place] [address] Phone Care Team Providers Care Shell Sorter Name Role Phone Sharon Arias MD Primary Care Provider [phone] Allergies Active Allergy Reactions Criticality Noted Date Comments Adhesive Other 09/30/2024 Skin irritation/ burning Gabapentin Hallucinations 04/10/2023 Nifedipine Weight Gain 09/30/2024 Elmrmos-Fxe-Owg Reductase Inhibitors Unknown 09/30/2024 PT doesn't recall [...] 01/09/2025 11:15 AM EDT Office Visit Endocrinology [address] [address] Violetta Martinez PA Type 2 diabetes mellitus without complications, unspecified whether intermodal customer service insulin use ([facility] V24, [facility] V28) (Primary Dx); Secondary hypertension from Last [...] 11:00 AM EST Office Visit Endocrinology - [place] [address] [place] [address] Michelle Matthews MD [address] [place] [address] Health Maintenance Due Date Last Done Comments [...] Uncontrolled type 2 diabetes mellitus with hyperglycemia ([facility] V24, [facility] V28) BASIC METABOLIC PANEL Routine 10/07/2024 9:14 AM EDT Uncontrolled type 2 diabetes mellitus with hyperglycemia ([facility] V24, [facility] V28) HEMOGLOBIN A1C Routine 10/07/2024 9:14 AM EDT Uncontrolled type 2 diabetes mellitus with hyperglycemia ([facility] V24, [facility] V28) LIPID PANEL WITH REFLEX TO DIRECT LDL Routine 10/07/2024 9:14 AM EDT Uncontrolled type 2 diabetes mellitus with hyperglycemia ([facility] V24, [facility] V28) from Last 3 Months or Most Recently Relevant to Health Maintenance Results * (ABNORMAL) Lipid panel with reflex to direct LDL (10/07/2024 9:14 AM EDT) [facility] Cholesterol 240(H) 0 - 200 mg/dL LAB CHEMISTRY METHOD 10/07/2024 1:42 PM EDT [facility] Triglycerides 288(H) 0 - 150 mg/dL LAB CHEMISTRY METHOD 10/07/2024 1:42 PM EDT [facility] HDL 35(L) >=40 mg/dL LAB CHEMISTRY METHOD 10/07/2024 1:42 PM EDT [facility] LDL Calculated 147(H) 0 - 100 mg/dL LAB CHEMISTRY METHOD 10/07/2024 1:42 PM EDT [facility] VLDL Cholesterol David 57.6 mg/dL LAB CHEMISTRY METHOD 10/07/2024 1:42 PM EDT [facility] Non HDL Chol. (LDL+VLDL) 205(H) <145 mg/dL LAB CHEMISTRY METHOD 10/07/2024 1:42 PM EDT [facility] Chol/HDL Ratio 6.9(H) 0.0 - 4.4 LAB CHEMISTRY METHOD 10/07/2024 1:42 PM EDT [facility] Blood Venous blood specimen / Unknown Venipuncture / Unknown 10/07/2024 9:14 AM EDT 10/07/2024 9:14 AM EDT us Violetta RODRÍGUEZ LAB BLOOD ORDERABLES Final Result [facility] [address] [place] [address], * (ABNORMAL) Microalbumin creatinine urine ratio (10/07/2024 9:14 AM EDT) Creatinine, Urine 324.0 mg/dL LAB CHEMISTRY METHOD 10/07/2024 11:57 AM EDT [facility] Microalb, Ur 197.0(H) 0.0 - 29.0 mg/L LAB CHEMISTRY METHOD 10/07/2024 11:57 AM EDT [facility] Microalb/Crea t Ratio 61(H) <30 mg/g creat LAB CHEMISTRY METHOD 10/07/2024 11:57 AM EDT [facility] Urine Urine specimen from urethra / Unknown Non-blood Collection / Unknown 10/07/2024 9:14 AM EDT 10/07/2024 9:14 AM EDT Violetta RODRÍGUEZ LAB URINE ORDERABLES Final Result Performing Organization Address [facility] Co de Phone Number [facility] [address] [place] [address], [place] [phone] * (ABNORMAL) Hemoglobin A1c (10/07/2024 9:14 AM EDT) Hemoglobin A1C 9.0(H) <6.5 % LAB CHEMISTRY METHOD 10/07/2024 1:08 PM EDT [facility] Mean Bld Glu Estim. 212 mg/dL LAB CHEMISTRY METHOD 10/07/2024 1:08 PM EDT [facility] Blood Venous blood specimen / Unknown Venipuncture / Unknown 10/07/2024 9:14 AM EDT 10/07/2024 9:14 AM EDT Violetta RODRÍGUEZ LAB BLOOD ORDERABLES Final Result Performing Organization Address [facility]/ZIP Co de Phone Number [facility] [address] [place] [address], [place] [phone] * (ABNORMAL) Basic metabolic panel (10/07/2024 9:14 AM EDT) Sodium 140 133 - 145 mmol/L LAB CHEMISTRY METHOD 10/07/2024 1:42 PM EDT [facility] Potassium 4.0 3.5 - 5.5 mmol/L LAB CHEMISTRY METHOD 10/07/2024 1:42 PM EDT [facility] Chloride 107 96 - 110 mmol/L LAB CHEMISTRY METHOD 10/07/2024 1:42 PM EDT [facility] CO2 26 21 - 32 mmol/L LAB CHEMISTRY METHOD 10/07/2024 1:42 PM EDT [facility] Anion Gap 7 3 - 11 LAB CHEMISTRY METHOD 10/07/2024 1:42 PM [facility] Glucose 269(H) 70 - 100 mg/dL LAB CHEMISTRY METHOD 10/07/2024 1:42 PM EDT [facility] BUN 15 5 - 25 mg/dL LAB CHEMISTRY METHOD 10/07/2024 1:42 PM [facility] Creatinine 0.92 0.50 - 1.10 mg/dL LAB CHEMISTRY METHOD [facility] eGFR 65 >=60 mL/min/1. 73m2 LAB CHEMISTRY METHOD 10/07/2024 1:42 PM EDT [facility] Comment:Calculation based on the Chronic Kidney Disease Epidemiology Collaboration (CKD-EPI) equation refit without adjustment for race. BUN/Creatinine Ratio 16.3 LAB CHEMISTRY METHOD 10/07/2024 1:42 PM [facility] Calcium 9.1 8.5 - 10.5 mg/dL LAB CHEMISTRY METHOD 10/07/2024 1:42 PM [facility] Blood Venous blood specimen / Unknown Venipuncture / Unknown 10/07/2024 9:14 AM EDT 10/07/2024 9:14 AM EDT us Violetta RODRÍGUEZ LAB BLOOD ORDERABLES Final Result [facility] [address] [place] [address], from Last 3 Months or Most Recently Relevant to Health Maintenance Insurance [facility] Care Teams Shell Sorter Relationship Specialty Start Date End Date Sharon Arias MD [id number] [place] [address] PCP - General Internal Medicine 09/30/24
--- OUTSIDE RECORDS SUMMARY | 2025-02-26 07:55 | XMS_ITS | Patient Health Record ---
Author Organization [facility] Address [address] [place] [address] Care Team Providers Care Spanish Literature Professor Name Role Phone Valencia Ariasberly Primary Care Provider UnavailFreddie Dunham Unavailable [phone] Allergies Allergen (clinical drug ingredient) Drug/Non Drug [...] Problem Acquired hammer toe of right foot ([id number] ) Other hammer toe(s) (acquired), right foot (M20.41) Active confirmed Problem Acquired hammer toe of left foot ([id number] ) Other hammer toe(s) (acquired), left foot (M20.42) Active confirmed Problem Polyneuropathy due to type 2 diabetes mellitus (741670340) Type 2 diabetes mellitus with diabetic polyneuropathy (E11.42) Active confirmed Plan Of Treatment Pending Test Test Name Order Date 13397-KNEFWWL NAIL, 6 OR MORE 11/05/2010 58024-BDJDNXO NAIL, 6 OR MORE 12/07/2010 07764-BISRNIL NAIL, 6 OR MORE 01/25/2011 50640-TXLQUWW NAIL, 6 OR MORE 04/12/2011 43733-IXYSJGH NAIL, 6 OR MORE 05/17/2011 41889-QOYCKTJ NAIL, 6 OR MORE 06/21/2011 94683-BIDKKSH NAIL, 6 OR MORE 07/26/2011 52338-LSUEEMI NAIL, 6 OR MORE 08/30/2011 67959-ZIEXQBR NAIL, 6 OR MORE 10/12/2011 26992-PADBJXM NAIL, 6 OR MORE 11/15/2011 12401-FFASKVC NAIL, 6 OR MORE 12/20/2011 08013-QIDWCBB NAIL, 6 OR MORE 01/24/2012 26686-SGTJLYY NAIL, 6 OR MORE 02/28/2012 96368-FGUOMWI NAIL, 6 OR MORE 04/03/2012 59140-ZYTMXCD NAIL, 6 OR MORE 05/11/2012 15913-DOVITOA NAIL, 6 OR MORE 06/15/2012 99987-NLNMLXZ NAIL, 6 OR MORE 07/16/2012 72407-DSWXHTW NAIL, 6 OR MORE 08/21/2012 34709-FQOJZIR NAIL, 6 OR MORE 09/18/2012 43721-NLENCIG NAIL, 6 OR MORE 10/23/2012 15408-BUEKVCH NAIL, 6 OR MORE 11/27/2012 82265-PMQODJH NAIL, 6 OR MORE 01/09/2013 46283-SCOCEFK NAIL, 6 OR MORE 02/15/2013 12353-QLCMOZL NAIL, 6 OR MORE 03/19/2013 18515-NUCCDGP NAIL, 6 OR MORE 04/19/2013 80827-NOZCPKK NAIL, 6 OR MORE 06/14/2013 22600-LEKDYVW NAIL, 6 OR MORE 07/16/2013 23141-FUOABIQ NAIL, 6 OR MORE 08/20/2013 78316-RJUFFYH NAIL, 6 OR MORE 09/27/2013 68107-DTBKIQR NAIL, 6 OR MORE 10/29/2013 87588-MARZMYD NAIL, 6 OR MORE 11/29/2013 00061-FJASFFX NAIL, 6 OR MORE 12/24/2013 49371-HKBPWII NAIL, 6 OR MORE 01/31/2014 77633-ZSYXVSW NAIL, 6 OR MORE 02/28/2014 97155-DTZCIIQ NAIL, 6 OR MORE 04/15/2014 47271-MMFTUOT NAIL, 6 OR MORE 05/13/2014 06405-DYUQEWO NAIL, 6 OR MORE 06/17/2014 50309-TGPJKDD NAIL, 6 OR MORE 07/22/2014 68539-WFYBUQZ NAIL, 6 OR MORE 08/26/2014 14962-QOCIDSS NAIL, 6 OR MORE 01/23/2015 95710-GAZIPDG NAIL, 6 OR MORE 04/06/2015 34530-HPFETYV NAIL, 6 OR MORE 07/29/2015 95947-VYMBFDX NAIL, 6 OR MORE 09/04/2015 58662-QJUXEJQ NAIL, 6 OR MORE 10/02/2015 72622-BCWMFGQ NAIL, 6 OR MORE 11/06/2015 21188-QJXKXTG NAIL, 6 OR MORE 12/08/2015 83717-HYTNMIF NAIL, 6 OR MORE 01/15/2016 54945-SBYCFNC NAIL, 6 OR MORE 02/12/2016 19516-JTXJIFO NAIL, 6 OR MORE 03/15/2016 25413-CICBZKM NAIL, 6 OR MORE 04/19/2016 82040-VSHTJCA NAIL, 6 OR MORE 07/05/2016 57261-UUUVFXW NAIL, 6 OR MORE 08/09/2016 71923-XRBCDJS NAIL, 6 OR MORE 09/06/2016 26648-MEGCNYL NAIL, 6 OR MORE 10/04/2016 43568-FCFVCCT NAIL, 6 OR MORE 11/08/2016 45131-NRWSOLO NAIL, 6 OR MORE 12/13/2016 50673-NBMBIYH NAIL, 6 OR MORE 01/20/2017 30298-SLVWZGU NAIL, 6 OR MORE 04/25/2017 10318-TLFWWDY NAIL, 6 OR MORE 06/30/2017 61429-PXOVBIJ NAIL, 6 OR MORE 08/01/2017 85492-OKHGLOG NAIL, 6 OR MORE 09/05/2017 41449-CVDUUYM NAIL, 6 OR MORE 02/13/2018 77736-PBQAUBI NAIL, 6 OR MORE 05/01/2018 22902-BYSKGNB NAIL, 6 OR MORE 07/06/2018 09459-UVLGCJN NAIL, 6 OR MORE 09/11/2018 46303-QORFTHD NAIL, 6 OR MORE 02/01/2019 48563-LXODTIU NAIL, 6 OR MORE 04/23/2019 54748-DEJTTYO NAIL, 6 OR MORE 07/02/2019 75800-UAVIZFM NAIL, 6 OR MORE 09/10/2019 73201-MAWFIYZ NAIL, 6 OR MORE 11/12/2019 76667-LFOYLSY NAIL, 6 OR MORE 01/21/2020 03523-ZBFPYXQ NAIL, 6 OR MORE 04/24/2020 43539-CFEWURB NAIL, 6 OR MORE 06/26/2020 65196-NUCERGW NAIL, 6 OR MORE 09/01/2020 61621-POFONBB NAIL, 6 OR MORE 11/27/2020 88942-KORVNXN NAIL, 6 OR MORE 03/25/2021 18888-PTEQTBW NAIL, 6 OR MORE 06/08/2021 46306-EGMJILW NAIL, 6 OR MORE 08/24/2021 51852-IKAFRIK NAIL, 6 OR MORE 11/09/2021 38709-Lvwsyztu Plate 05/10/2013 24209-Ymcphqaa Plate 09/26/2014 45416-Xukokbfs Plate 04/12/2011 82388-FPJN SKIN LESIONS, OVER 4 05/17/19 12 48158-YLOT SKIN LESIONS, OVER 4 08/30/19 12 15129-NYOT SKIN LESIONS, OVER 4 06/21/19 12 32259-ULUF SKIN LESIONS, OVER 4 07/26/19 12 69116-MOQO SKIN LESIONS, OVER 4 04/12/19 12 61783-BOYW SKIN LESIONS, OVER 4 03/01/20 11 56053-RRLX SKIN LESIONS, OVER 4 12/08/19 11 95276-AWGU SKIN LESIONS, OVER 4 01/26/20 11 90739-AXWX SKIN LESIONS, OVER 4 11/06/19 11 71897-OAWF SKIN LESIONS, OVER 4 06/16/19 13 35979-WJQJ SKIN LESIONS, OVER 4 05/12/19 13 79346-LGJY SKIN LESIONS, OVER 4 04/03/19 13 30480-QQTE SKIN LESIONS, OVER 4 02/28/20 12 98486-DNRW SKIN LESIONS, OVER 4 01/24/20 12 60536-SREQ SKIN LESIONS, OVER 4 12/20/19 12 41672-CCPU SKIN LESIONS, OVER 4 11/15/19 12 28246-UINH SKIN LESIONS, OVER 4 10/12/19 12 51783-JAKL SKIN LESIONS, OVER 4 02/01/20 14 36518-KJQI SKIN LESIONS, OVER 4 12/25/19 14 39665-PDLP SKIN LESIONS, OVER 4 11/30/19 14 93814-UAHT SKIN LESIONS, OVER 4 10/30/19 14 72934-ECFA SKIN LESIONS, OVER 4 09/28/19 14 08918-ZCTP SKIN LESIONS, OVER 4 07/17/19 14 55158-ITDI SKIN LESIONS, OVER 4 08/21/19 14 17628-YDSQ SKIN LESIONS, OVER 4 06/15/19 14 85009-LYVH SKIN LESIONS, OVER 4 04/19/19 14 04081-MDVN SKIN LESIONS, OVER 4 03/19/19 14 92814-UXUM SKIN LESIONS, OVER 4 02/16/20 13 91090-RDLL SKIN LESIONS, OVER 4 01/10/20 13 67856-ERZF SKIN LESIONS, OVER 4 11/28/19 13 10194-ITCL SKIN LESIONS, OVER 4 10/24/19 13 74127-XHJP SKIN LESIONS, OVER 4 09/19/19 13 81395-PXUQ SKIN LESIONS, OVER 4 08/22/19 13 21434-ZGWA SKIN LESIONS, OVER 4 07/17/19 13 28522-WNKM SKIN LESIONS, OVER 4 01/24/20 15 68753-PBRO SKIN LESIONS, OVER 4 08/27/19 15 57534-ZHNJ SKIN LESIONS, OVER 4 07/23/19 15 08334-BTEL SKIN LESIONS, OVER 4 06/18/19 15 81936-WGMY SKIN LESIONS, OVER 4 05/14/19 15 44076-ZCIO SKIN LESIONS, OVER 4 04/15/19 15 86812-KQXJ SKIN LESIONS, OVER 4 02/29/20 14 19252-LDTA SKIN LESIONS, OVER 4 02/12/20 16 92372-TGAX SKIN LESIONS, OVER 4 01/15/20 16 21513-HZGJ SKIN LESIONS, OVER 4 12/08/19 16 62661-WKHM SKIN LESIONS, OVER 4 11/06/19 16 72288-YJJQ SKIN LESIONS, OVER 4 10/02/19 16 53306-OBPF SKIN LESIONS, OVER 4 09/04/19 16 88407-QONV SKIN LESIONS, OVER 4 07/29/19 16 43022-XVMA SKIN LESIONS, OVER 4 04/06/19 16 16034-RNZD SKIN LESIONS, OVER 4 09/12/19 19 19423-NYGO SKIN LESIONS, OVER 4 07/07/19 19 24041-DOGV SKIN LESIONS, OVER 4 05/01/19 19 19847-GMQF SKIN LESIONS, OVER 4 02/14/20 18 46958-ZOCX SKIN LESIONS, OVER 4 09/06/19 18 53190-VRQA SKIN LESIONS, OVER 4 08/02/19 18 37111-HDEJ SKIN LESIONS, OVER 4 07/01/19 18 87832-LWYE SKIN LESIONS, OVER 4 04/25/19 18 41680-BUAT SKIN LESIONS, OVER 4 01/21/20 17 19498-NCVY SKIN LESIONS, OVER 4 12/14/19 17 73509-LNZO SKIN LESIONS, OVER 4 11/09/19 17 75076-IPGO SKIN LESIONS, OVER 4 10/05/19 17 73083-RBYH SKIN LESIONS, OVER 4 09/07/19 17 53002-NIAG SKIN LESIONS, OVER 4 07/06/19 17 40810-KZEJ SKIN LESIONS, OVER 4 08/10/19 17 93951-JMIA SKIN LESIONS, OVER 4 04/19/19 17 29059-OPHF SKIN LESIONS, OVER 4 03/15/19 17 97406-MPBC SKIN LESIONS, OVER 4 11/10/19 22 18639-NNJO SKIN LESIONS, OVER 4 08/25/19 22 17979-PIUN SKIN LESIONS, OVER 4 06/09/19 22 96086-CERQ SKIN LESIONS, OVER 4 03/25/19 22 90783-IKBY SKIN LESIONS, OVER 4 11/28/19 21 67826-XIOH SKIN LESIONS, OVER 4 09/02/19 21 27942-QWHV SKIN LESIONS, OVER 4 06/27/19 21 39236-ABLV SKIN LESIONS, OVER 4 04/24/19 63357-NWVH SKIN LESIONS, OVER 4 01/21/20 20 58353-FGNR SKIN LESIONS, OVER 4 11/12/19 20 52260-XKUW SKIN LESIONS, OVER 4 09/10/19 20 82997-BSGN SKIN LESIONS, OVER 4 07/02/19 20 11868-BFVY SKIN LESIONS, OVER 4 04/23/19 20 00717-OAOQ SKIN LESIONS, OVER 4 02/02/20 19 B4182-MAETBPHC DYSTROPHIC NAILS ANY # Insurance Providers Payer Name Payer Address Payer Phone Subscriber Number Group Number Insured Name Patient Relationship to Insured Coverage Start Date Coverage End Date [employer] [address] [place] [address] [phone] [id number] Nilam Mahajan Self - patient is the insured 6 Medical (General) History Medical History History ICD Code cancer, breast sjogren syndrome mumps measles hypertension chicken pox hyperlipidemia Arthritis type II diabetes Surgical History Surgery Date(Month/Year) section 1977 cholecystectomy 2008 lumpectomy 2005 breast biopsy 2011 colonoscopy 01/07/2020 Tooth extraction- very infected tooth 06/19/2020 Hospitalization History Reason Date(Month/Year) [facility] - concussion 09/2011 [facility] ER, UTI, staph infection, kidne y stones, case of dementia 09/12/2013 PCP - UTI antiboitic taken 7 days 2021
--- NOTE | 2025-02-26 08:00 | A.OFFPC_ITS ---
Vital Signs 02/26/25 08:04 Height 5 ft 0.5 in Weight 196 lb 2 oz BMI 37.7 BP 110/68 Blood Pressure Location Rt brachial Position Sitting Respiration 16 Pulse 63 Pulse Source Pulse Oximeter Temp 96.9 F Temp Source Temporal Artery Scan Pulse Oximetry (%) 96 Oxygen Delivery Method Room Air Intake Visit Reasons: Vertigo, ear pain Food Science Technician Required: No Accompanied by: Self / Same As Patient Allergies adhesive tape Allergy (Intermediate, Verified 02/26/25 08:00) removes skin Agzzodw-PRZ-SeM Reductase Inhibitor Allergy (Intermediate, Verified 02/26/25 08:00) Unknown metformin Adverse Reaction (Verified 02/26/25 08:00) bloating Medication List - Last Reconciled 02/26/25 by Sharon Arias MD cholecalciferol (vitamin D3) 1,250 mcg PO QWEEK 3 months ciclopirox 0.77% appl topical BID PRN ezetimibe (Zetia) 10 mg PO DAILY furosemide 20 mg PO DAILY insulin glargine (Lantus Solostar U-100 Insulin) 70 units subcut QAM insulin lispro (Humalog KwikPen (U-100) Insulin) 0.5 - 20 units subcut TID PRN pen needle, diabetic (Ultra-Fine Pen Needle) As directed valacyclovir 2,000 mg PO BID PRN Tobacco use date assessed: 01/10/25 Fall risk assessment: 2 + Falls in past year Last assessed Fall Risk: 02/26/25 Dental Screening Dental Screen Date: 01/10/25 HPI HPI Comments History of Present Illness Details The patient is a 75 year old female presenting with dizziness. Vertigo: The patient reports being very dizzy and experienced three episodes of vertigo yesterday, one of which caused her to fall in the shower. She hit the front of her head during the fall but denies any current soreness. A recent MRI of the brain was unremarkable for any acute cause of her symptoms. Notes no dizziness today HTN- has been taking a beet supplement. Diabetes Mellitus: The patient reports issues with her former endocrinology practice, which resulted in her not receiving her insulin for nine days, causing her blood sugars to become very high. Her blood glucose this morning was 176, higher than her recent range of 130s-140s. She is adherent with her insulin but does not take metformin due to bloating. Visual Disturbance: The patient reports that her eyesight has been horrible with increased blurriness. She has a history of floaters, but recently has seen new ones that sparkle, which are different from her baseline. She also reports seeing thi ngs floating in the air . Manager Stone is Dr. Tee Ear Symptoms: The patient reports that her ears are very itchy and sometimes she feels drainage. Occasional pain. Hypertension: The patient takes a Humann Beets supplement for her blood pressure. She notes her blood pressure is now lower. She also uses furosemide as needed for weight fluctuations of up to 6 pounds, which she attributes to salt intake. Obstructive sleep apnea- on bipap - Home blood-glucose monitorin mg/ dL this morning, recently has been in the 130s-140s. [facility] Medical History (Updated 02/26/25 @ 17:36 by Sharon Arias MD) Otitis externa Vertigo Dizziness Abnormal CT scan, head Lacunar infarction Vitamin D deficiency Mental status alteration Anemia Depression Anxiety Diabetes mellitus type 2 in obese Coronary artery disease Hyperlipidemia, unspecified Primary hypertension Surgical History (Updated 01/10/25 @ 11:26 by Sharon Arias MD) Hx of CABG History of colonoscopy (~01/02/20) Family History (Updated 01/10/25 @ 11:29 by Sharon Arias MD) Mother Dementia Social History Housing: House Patient Tobacco Use Status: Never used Tobacco e-Cigarette/Vaping Use: Never Used service: No Current occupational status: employed 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 1. Little interest or pleasure in doing things: nearly every day 2. Feeling down, depressed, or hopeless: several days 3. Trouble falling or staying asleep, or sleeping too much: several days 4. Feeling tired or having little energy: not at all 5. Poor appetite or overeating: not at all 6. Feeling bad about yourself - or that you are a failure or have let yourself or your family down: not at all 7. Trouble concentrating on things, such as reading the newspaper or watching television: not at all 8. Moving or speaking so slowly that other people could have noticed. Or the opposite - being so fidgety or restless that you have been moving around a lot more than usual: not at all 9. Thoughts that you would be better off or of hurting yourself in some way: not at all Total score: 5 Depression Screening Interpretation: Positive Depression Screening Done: Yes 57894 - PHQ-9 Billing: Yes Source: Developed by Drs. Robby Larsen, Mirian Loomis, Eduardo Siddiqi and colleagues, with an educational bonnie from [employer]. AUDIT C Alcohol Use Questionnaire (AUDIT-C) 1. How often do you have a drink containing alcohol?: Never 3. How often do you have six or more drinks on one occasion?: Never Total Score: 0 ALECIA-7 AMB Questionnaire ALECIA-7 Date ALECIA - 7 assessed: 01/10/25 Source: Developed by Drs. Robby Larsen, Mirian Loomis, Eduardo Siddiqi and colleagues, with an educational bonnie from [employer]. Review of Systems Narrative Review of Systems - HEENT: Reports ear pruritus and an occasional sensation of drainage. Reports blurry vision and new, sparkling floaters. - Constitutional: Reports feeling much better today compared to yesterday. Reports bloating. - Neurological: Reports dizziness and vertigo, with three episodes yesterday leading to a fall. Denies current soreness from the fall. - Sleep: Reports difficulty falling asleep. Physical exam (Primary Care) Vital Signs: Last Vital Signs Temp 96.9 F 02/26/25 08:04 Pulse 63 02/26/25 08:04 Resp 16 02/26/25 08:04 BP 110/68 02/26/25 08:04 Pulse Ox 96 02/26/25 08:04 Oxygen Delivery Method Room Air 02/26/25 08:04 BMI result Body Mass Index 37.7 Tobacco/Smoking Status: Tobacco use Status Tobacco use date assessed 01/10/25 02/26/25 08:02 Patient Tobacco Use Status Never used Tobacco 02/26/25 08:02 e-Cigarette/Vaping Use Never Used 02/26/25 08:02 PHQ-9: PHQ-9 Score PHQ-9: Total score 5 02/26/25 08:02 Depression Screening Interpretation: Positive Narrative Physical Exam - Gen: NAD - HEENT: Otoscopy reveals mild irritation bilaterally, without signs of infection. A small amount of cerumen is noted bilaterally - Lungs: Clear to auscultation bilaterally, no wheezing. - Cardiovascular: Regular rhythm. A soft murmur is audible. - Abdomen: Normal bowel sounds. Coding Level of Care Code Est Pt Level 4 (41433) Add On Problem Visit Only Diagnoses Vertigo R42 Otitis externa of both ears, unspecified chronicity, unspecified type H60.93 Otitis externa type: unspecified type Chronicity: unspecified Laterality: bilateral Diabetes mellitus type 2 in obese E11.69; E66.9 Additional Codes PHQ-9 - 63314 - PHQ-9 Billing: Yes ([id number]) Assessment & Plan Assessment & Plan (1) Vertigo: Code(s): R42 - Dizziness and giddiness Category: Medical (2) Otitis externa: Code(s): H60.90 - Unspecified otitis externa, unspecified ear Category: Medical Qualifiers: Otitis externa type: unspecified type Chronicity: unspecified Laterality: bilateral Qualified Code(s): H60.93 - Unspecified otitis externa, bilateral (3) Diabetes mellitus type 2 in obese: Code(s): E11.69 - Type 2 diabetes mellitus with other specified complication; E66.9 - Obesity, unspecified Category: Medical Plan Assessment and Plan 1. Vertigo - The patient's symptoms are likely multifactorial, potentially related to otitis externa, dehydration, and orthostasis given her lower blood pressure. - The recent brain MRI was negative for an acute posterior circulation event. - Plan to prescribe meclizine for symptomatic relief. - Advised the patient to maintain adequate hydration. 2. Otitis Externa with Pruritus - The patient's ear exam shows mild irritation and she reports significant itching. - To prevent further irritation from scratching, ofloxacin ear drops will be prescribed, five drops in each ear twice daily for seven days. 3. Diabetes Mellitus - Blood glucose is suboptimally controlled, with a recent high reading and non-adherence to metformin due to side effects. - The patient has had logistical issues with her previous endocrinology provider. - Plan is to obtain outside records from [facility]. - Will check a metabolic panel, including electrolytes, magnesium, and thyroid function, to assess for contributing factors to her symptoms. 4. Visual Disturbance - The patient reports new, sparkling floaters and blurry vision. - These symptoms warrant urgent ophthalmologic evaluation to rule out retinal pathology. - The plan is for the patient to schedule a dilated eye exam with her wood cabinet finisher. 5. Health Maintenance - Follow up in 6 weeks as scheduled Plan - Prescribed ofloxacin ear drops, 5 drops in each ear twice daily for 7 days, for ear irritation. - Prescribed meclizine for symptomatic relief of vertigo. - Ordered lab work to include electrolytes (potassium, sodium), magnesium, and thyroid function tests. - Advised patient to schedule an appointment with her eye doctor for a dilated eye exam to evaluate new visual symptoms. Patient Instructions - Use the ofloxacin ear drops as prescribed: Place 5 drops in each ear twice a day for 7 days to help with the itching. - Take the meclizine medication as needed if you feel dizzy or have vertigo. appointment is at the end of March. Orders: Orders Magnesium Today I10 - Essential (primary) hypertension, R42 - Dizziness and giddiness Complete Blood Count Auto Diff Today I10 - Essential (primary) hypertension, R42 - Dizziness and giddiness Basic Metabolic Panel Today I10 - Essential (primary) hypertension, R42 - Dizziness and giddiness TSH reflex Free T4 Today I10 - Essential (primary) hypertension, R42 - Dizziness and giddiness Medications: New ofloxacin 0.3% 5 drps otic (ears) BID 10 mL 0RF 7 days meclizine 25 mg PO TID 30 tabs 5RF dizziness
[2025-02-26 08:04] VITALS: BP 110/68; PULSE 63; RESP 16; TEMP 36.1; O2SAT 96; BMI 37.7
== END 2025-02-26 08:49 | disposition home or self-care (01) ==
LOC: HO.HMCHD 07:52
PROVIDERS: PCP Internal Medicine; Visit Provider Internal Medicine
DX: R42 Dizziness and giddiness (principal); H60.93 Unspecified otitis externa, bilateral; E11.69 Type 2 diabetes mellitus with other specified complication; E66.9 Obesity, unspecified

== ENCOUNTER 2025-02-26 09:07 | Outpatient (REF) | payer MEDICARE, SELFPAY ==
[2025-02-26 10:32] LABS: MANUAL DIFF FLAG NO
[2025-02-26 10:50] LABS: Hematocrit 42.9 % (37.0-47.0); Hemoglobin 14.2 g/dl (12.0-16.0); Imm Gran Abs Auto 0.04 X10*3/uL (0.00-0.03); Imm Gran Pct Auto 0.8 % (0.0-0.4); Lymphocytes Absolute Auto 0.7 X10*3/uL (1.2-4.9); Mean Corpuscular HGB Conc 33.1 g/dl (31.0-35.0); Mean Corpuscular Hemoglobin 27.4 pg (27.0-33.0); Mean Corpuscular Volume 82.7 fL (80.0-98.0); NRBC Abs Auto 0.000 X10*3/uL (0.0-0.012); NRBC Pct Auto 0.0 /100WBC (0.0-0.2); Platelet Count 229 X10*3/uL (160-400); Red Blood Count 5.19 X10*6/uL (4.20-5.50); White Blood Count 5.0 X10*3/uL (4.8-10.8)
[2025-02-26 13:49] LABS: Anion Gap 11 (12-20); Blood Urea Nitrogen 18 mg/dL (9-16); Calcium 9.3 mg/dL (8.4-10.2); Carbon Dioxide 26 mmol/L (22-29); Chloride 107 mmol/L (96-108); Estimated Glomerular Filt Rate > 60; Magnesium 2.2 mg/dL (1.6-2.6); Potassium 4.1 mmol/L (3.3-5.1); Sodium 140 mmol/L (135-145)
== END 2025-02-26 09:08 | disposition home or self-care (01) ==
LOC: HO.10HDL 09:07
PROVIDERS: Visit Provider Internal Medicine
DX: I10 Essential (primary) hypertension (principal); R42 Dizziness and giddiness
CPT/HCPCS: 36415; 80048; 83735; 84443; 85025; 96127; 99212